=== PATIENT | male | born 1940 | race Caucasian/White ===

== ENCOUNTER 2018-04-07 10:42 | Emergency (ER) | payer OTHER ==
--- NOTE | 2018-04-07 12:11 | RAD REPORT ---
EXAM DESCRIPTION: CT - Head Brain Wo Cont - 04/07/2018 12:04 pm CLINICAL HISTORY: DIZZINESS Drowsiness COMPARISON: No comparisons TECHNIQUE: All CT scans are performed using dose optimization technique as appropriate and may inclu de automated exposure control or mA/KV adjustment according to patient size. FINDINGS: No intracranial hemorrhage, hydrocephalus or extra-axial fluid collection.Mild generalized brain atrophy is present with mild periventricular and deep white matter chronic microvascular ische ta changes.No areas of brain edema or evidence of midline shift. The paranasal sinuses and mastoids are clear. The calvarium is intact. IMPRESSION: No acute intracranial abnormality.
[2018-04-07] MEDS ORDERED: AMLODIPINE 5 MG TAB ONE (12:28)
[2018-04-07 12:42] LABS: Absolute Lymphocytes (CBC) 0.6 K/uL (0.7-4.9); Absolute Monocytes 0.4 K/uL (0.1-1.3); Basophils % 1.3 % (0-1.3); Eosinophils % 0.9 % (0-4.4); Hematocrit 46.4 % (39.6-49.0); Lymphocytes % 19.7 % (15.3-44.8); MCH 32.8 pg (27.0-35.0); MCV 98.4 fL (80-100); MPV 8.3 fL (7.6-11.3); Monocytes % 12.8 % (3.3-12.3); RBC Red Blood Cell Count 4.71 M/uL (4.33-5.43)
[2018-04-07 12:43] LABS: Protime INR 1.03
--- NOTE | 2018-04-07 12:58 | EKG ---
Test Date: 2018-04-07 Test Time: 12:38:07 Turning Lathe Tender: DONNA MEASUREMENT RESULTS: Intervals: Rate: 66 TN: 142 QRSD: 124 QT: 426 QTc: 446 [place]: P: 62 TN: 142 QRS: 22 T: 42 INTERPRETIVE STATEMENTS: Normal sinus rhythm Right bundle branch block Abnormal ECG Compared to ECG 02/01/2015 22:04:24 Right bundle-branch block now present Incomplete right bundle-branch block no longer present Electronically Signed On 04-07-18 12:57:37 CDT by Erik Marques
--- NOTE | 2018-04-07 13:08 | RAD REPORT ---
EXAM DESCRIPTION: RAD - Chest Single View - 04/07/2018 1:02 pm CLINICAL HISTORY: CHEST PAIN Chest pain. COMPARISON: CHEST SINGLE VIEW dated 02/01/2015 FINDINGS: Portable technique limits examination quality. The lungs are emphysematous but grossly clear. The heart is normal in size. No displaced fractures. IMPRESSION: COPD.
[2018-04-07 13:13] LABS: ALT/SGPT 16 U/L (12-78); AST/SGOT 30 U/L (15-37); Albumin 3.8 g/dL (3.4-5.0); Alkaline Phosphatase 80 U/L (45-117); BUN Blood Urea Nitrogen 10 mg/dL (7-18); Bicarbonate 30 mmol/L (21-32); Bilirubin Direct 0.3 mg/dL (0-0.2); Bilirubin Total 1.1 mg/dL (0.2-1.0); Glucose Level 95 mg/dL (74-106); Magnesium 2.5 mg/dL (1.8-2.4); NT PRO-BNP 411 pg/mL (<450); Protein, Total 7.6 g/dL (6.4-8.2); Sodium Level 137 mmol/L (136-145); Troponin (Emerg Dept Use Only) < 0.02 ng/mL (0.0-0.045)
[2018-04-07] MEDS ORDERED: CARVEDILOL 6.25 MG TAB ONE (13:44)
--- NOTE | 2018-04-07 15:06 | EDPHYS ---
Physician Documentation [facility] Name: Rufino Sanders Age: 77 yrs Sex: Male : 1940 Arrival Date: 04/07/2018 Time: 10:44 Bed 18 Private MD: ED Physician Esperanza Fountain HPI: 04/07 15:06 This 77 yrs old Male presents to ER via Ambulatory with complaints of High ma2 Blood Pressure, Dizziness. 12:33 The patient has elevated blood pressure and discovered this at clinic, went there for ma2 left shoulder pain that is on/off for the last 2 weeks, last episode 2 days ago over, worse with twisting lasting for few seconds n ochest pain . Associated signs and symptoms: Pertinent negatives: chest pain, dizziness, dyspnea, headache, lightheadedness, nausea, visual changes, vomiting, weakness. The patient has not experienced similar symptoms in the past. 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 - Social history:: Patient/guardian denies using alcohol, street drugs, The patient lives with family, Smoking status: Patient/guardian denies using tobacco. - Ebola Screening: : Patient negative for fever greater than or equal to 101.5 degrees Fahrenheit, and additional compatible Ebola Virus Disease symptoms. - Family history:: not pertinent. ROS: 12:33 Constitutional: Negative for fever, chills, and weight loss, Cardiovascular: Negative ma2 for chest pain, palpitations, and edema, Respiratory: Negative for shortness of breath, cough, wheezing, and pleuritic chest pain, Abdomen/GI: Negative for abdominal pain, nausea, diarrhea, and constipation, Back: Negative for injury and pain, Skin: Negative for injury, rash, and discoloration, Neuro: Negative for headache, weakness, numbness, tingling, and seizure. 12:33 Back: Positive for left scapular pain , Negative for injury or acute deformity, pain at rest, radiated pain. Exam: 12:33 Constitutional: This is a well developed, well nourished patient who is awake, alert, ma2 and in no acute distress. Eyes: Pupils equal round and reactive to light, extra-ocular motions intact. Lids and lashes normal. Conjunctiva and sclera are non-icteric and not injected. Cornea within normal limits. Periorbital areas with no swelling, redness, or edema. Chest/axilla: Normal chest wall appearance and motion. Nontender with no deformity. No lesions are appreciated. Cardiovascular: Regular rate and rhythm with a normal S1 and S2. No gallops, murmurs, or rubs. Normal PMI, no JVD. No pulse deficits. Respiratory: Lungs have equal breath sounds bilaterally, clear to auscultation and percussion. No rales, rhonchi or wheezes noted. No increased work of breathing, no retractions or nasal flaring. Abdomen/GI: Soft, non-tender, with normal bowel sounds. No distension or tympany. No guarding or rebound. No evidence of tenderness throughout. 12:33 Back: tender left scapula . Vital Signs: 11:12 BP 185 / 99; Pulse 60; Resp 18; Temp 97.6(O); Pulse Ox 98% on R/A; Weight 89.81 kg; aj1 Height 6 ft. 5 in. (195.58 cm); Pain 0/10; 12:18 BP 180 / 136; Pulse 80; Resp 18; Pulse Ox 98% on R/A; rb1 13:18 BP 205 / 121; Pulse 84; Resp 20; Pulse Ox 100% ; mh5 14:17 BP 170 / 94; Pulse 77; Resp 17; Pulse Ox 98% on R/A; rb1 15:17 BP 158 / 99; Pulse 59; Resp 16; Pulse Ox 95% on R/A; rb1 11:12 Body Mass Index 23.48 (89.81 kg, 195.58 cm) aj1 MDM: 11:29 Patient medically screened. ma2 12:33 Differential diagnosis: hypertensive crisis, Malignant HTN, intracerebral hemorrhage, ma2 MSK pain, essential HTN. 15:05 Data reviewed: vital signs, nurses notes, [facility] records. Counseling: I had a ma2 detailed discussion with the patient and/or guardian regarding: the historical points, exam findings, and any diagnostic results supporting the discharge/admit diagnosis, the presence of at least one elevated blood pressure reading (>120/80) during this emergency department visit, the need for outpatient follow up. Response to treatment: the patient's symptoms have markedly improved after treatment. 04/07 11:48 Order name: Basic Metabolic Panel; Complete Time: 13:27 ma2 04/07 11:48 Order name: CBC with Diff; Complete Time: 13:27 ma2 04/07 11:48 Order name: LFT's; Complete Time: 13:27 ma2 04/07 11:48 Order name: Magnesium; Complete Time: 13:27 ma2 04/07 11:48 Order name: NT PRO-BNP; Complete Time: 13:27 ma2 04/07 11:48 Order name: PT-INR; Complete Time: 13:27 ma2 04/07 11:48 Order name: Troponin (emerg Dept Use Only); Complete Time: 13:27 ma2 04/07 11:48 Order name: XRAY Chest (1 view); Complete Time: 13:27 ma2 04/07 11:48 Order name: EKG; Complete Time: 11:49 ma2 04/07 11:48 Order name: Cardiac monitoring; Complete Time: 12:34 ma2 04/07 11:48 Order name: CT Head Brain wo Cont; Complete Time: 13:27 ma2 04/07 11:48 Order name: EKG - Nurse/Tech; Complete Time: 12:37 ma2 04/07 11:48 Order name: IV Saline Lock; Complete Time: 12:34 ma2 04/07 11:48 Order name: Labs collected and sent; Complete Time: 12:34 ma2 04/07 11:48 Order name: O2 Per Protocol; Complete Time: 12:34 ma2 04/07 11:48 Order name: O2 Sat Monitoring; Complete Time: 12:34 ma2 Administered Medications: 12:10 Drug: Norvasc 5 mg Route: PO; rb1 15:45 Follow up: Response: No adverse reaction; Blood pressure is lowered ss 13:32 CANCELLED (alternative rx): Hydrochlorothiazide 12.5 mg PO once ma2 13:40 Drug: carvedilol 12.5 mg Route: PO; rb1 14:30 Follow up: Response: No adverse reaction; Blood pressure is lowered; 170/94 rb1 15:44 Follow up: Response: No adverse reaction; Blood pressure is lowered ss Disposition: 04/07/18 15:06 Discharged to Home. Impression: Essential (primary) hypertension. - Condition is Stable. - Discharge Instructions: Hypertension. - Prescriptions for Carvedilol 12.5 mg Oral Tablet - take 1 tablet by ORAL route 2 times per day with food; 60 tablet. - Medication Reconciliation Form, Thank You Letter, Antibiotic Education, Prescription Opioid Use form. - Follow up: Private Physician; When: Tomorrow; Reason: Continuance of care. - Problem is new. - Symptoms are unchanged. Signatures: Dispatcher [employer] EDOK Sada San RN RN aj1 Sadia Cross RN RN ss Savita Clarke RN RN rb1 Esperanza Fountain MD MD ma2 Corrections: (The following items were deleted from the chart) 13:32 13:29 Hydrochlorothiazide 12.5 mg PO once ordered. ma2 ma2 15:46 15:06 04/07/2018 15:06 Discharged to Home. Impression: Essential (primary) ss hypertension. Condition is Stable. Forms are Medication Reconciliation Form, Thank You Letter, Antibiotic Education, Prescription Opioid Use. Follow up: Private Physician; When: Tomorrow; Reason: Continuance of care. Problem is new. Symptoms are unchanged. ma2
--- NOTE | 2018-04-07 15:06 | ER ---
Nurse's Notes [facility] Name: Rufino Sanders Age: 77 yrs Sex: Male : 1940 Arrival Date: 04/07/2018 Time: 10:44 Bed 18 Private MD: Diagnosis: Essential (primary) hypertension Presentation: 04/07 11:10 Presenting complaint: Patient states: He got dizzy when he stood up at Urgent Care, and aj1 his SBP was 188. Patient reports that he has had occasional dizziness for the past week, and pain on his left upper back. He had gone to Urgent Care to get an X-Ray. Transition of care: patient was not received from another setting of care. Onset of symptoms was April 07, 2018. Risk Assessment: Do you want to hurt yourself or someone else? Patient reports no desire to harm self or others. Initial Sepsis Screen: Does the patient meet any 2 criteria? No. Patient's initial sepsis screen is negative. Does the patient have a suspected source of infection? No. Patient's initial sepsis screen is negative. Care prior to arrival: None. 11:10 Method Of Arrival: Ambulatory aj1 11:10 Acuity: FABIEN 3 aj1 Triage Assessment: 11:12 General: Appears in no apparent distress. comfortable, Behavior is calm, cooperative, aj1 appropriate for age. Pain: Denies pain. Complains of pain in left scapular area Pain currently is 0 out of 10 on a pain scale. at worst was 5 out of 10 on a pain scale. Neuro: Level of Consciousness is awake, alert, obeys commands. Cardiovascular: Patient's skin is warm and dry. Respiratory: Airway is patent Respiratory effort is even, unlabored, Respiratory pattern is regular, symmetrical. 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 - Social history:: Patient/guardian denies using alcohol, street drugs, The patient lives with family, Smoking status: Patient/guardian denies using tobacco. - Ebola Screening: : Patient negative for fever greater than or equal to 101.5 degrees Fahrenheit, and additional compatible Ebola Virus Disease symptoms. - Family history:: not pertinent. Screenin:26 Abuse screen: Denies threats or abuse. Nutritional screening: No deficits noted. rb1 Tuberculosis screening: No symptoms or risk factors identified. Fall Risk None identified. Assessment: 11:26 General: Appears in no apparent distress. comfortable, Behavior is calm, cooperative, rb1 Denies fever. Pain: Denies pain. Neuro: Level of Consciousness is awake, alert, obeys commands, Oriented to person, place, time, situation. Neuro: Reports dizziness, weakness. Neuro: Carpenter Supervisor are equal bilaterally Moves all extremities. Gait is steady, Speech is normal, Facial symmetry appears normal, Pupils are PERRLA. Cardiovascular: Capillary refill < 3 seconds is brisk in bilateral fingers. Respiratory: Airway is patent Respiratory effort is even, unlabored, Respiratory pattern is regular, symmetrical. Respiratory: Denies shortness of breath. GI: No deficits noted. : No deficits noted. Derm: Skin is pink, warm \T\ dry. Musculoskeletal: Range of motion: intact in all extremities. 12:23 Reassessment: Patient appears in no apparent distress at this time. No changes from rb1 previously documented assessment. 13:20 Reassessment: Patient appears in no apparent distress at this time. Patient and/or rb1 family updated on plan of care and expected duration. Pain level reassessed. Patient is alert, oriented x 3, equal unlabored respirations, skin warm/dry/pink. Patient denies pain at this time. 14:20 Reassessment: Patient appears in no apparent distress at this time. No changes from rb1 previously documented assessment. 15:18 Reassessment: Patient appears in no apparent distress at this time. Patient and/or rb1 family updated on plan of care and expected duration. Pain level reassessed. Patient is alert, oriented x 3, equal unlabored respirations, skin warm/dry/pink. Patient denies pain at this time. Vital Signs: 11:12 BP 185 / 99; Pulse 60; Resp 18; Temp 97.6(O); Pulse Ox 98% on R/A; Weight 89.81 kg; aj1 Height 6 ft. 5 in. (195.58 cm); Pain 0/10; 12:18 BP 180 / 136; Pulse 80; Resp 18; Pulse Ox 98% on R/A; rb1 13:18 BP 205 / 121; Pulse 84; Resp 20; Pulse Ox 100% ; mh5 14:17 BP 170 / 94; Pulse 77; Resp 17; Pulse Ox 98% on R/A; rb1 15:17 BP 158 / 99; Pulse 59; Resp 16; Pulse Ox 95% on R/A; rb1 11:12 Body Mass Index 23.48 (89.81 kg, 195.58 cm) aj1 ED Course: 10:44 Patient arrived in ED. rg4 11:11 Triage completed. aj1 11:12 Arm band placed on Patient placed in waiting room, Patient notified of wait time. aj1 11:25 Savita Clarke, RN is Primary Nurse. rb1 11:26 Patient has correct armband on for positive identification. Placed in gown. Bed in low rb1 position. Call light in reach. Side rails up X 1. cafeteria monitor on. Pulse ox on. NIBP on. 11:29 Esperanza Fountain MD is Attending Physician. ma2 12:[address] via wheelchair. jj2 12:03 CT completed. Patient tolerated procedure well. Patient moved back from CT. jj2 12:04 CT Head Brain wo Cont In Process Unspecified. EDMS 12:41 EKG done, by wellfield technician. reviewed by Esperanza Fountain MD. at1 13:02 XRAY Chest (1 view) In Process Unspecified. EDMS 13:04 X-ray completed. Portable x-ray completed in exam room. jr1 15:44 No provider procedures requiring assistance completed. IV discontinued, intact, ss bleeding controlled, No redness/swelling at site. Pressure dressing applied. Administered Medications: 12:10 Drug: Norvasc 5 mg Route: PO; rb1 15:45 Follow up: Response: No adverse reaction; Blood pressure is lowered ss 13:32 CANCELLED (alternative rx): Hydrochlorothiazide 12.5 mg PO once ma2 13:40 Drug: carvedilol 12.5 mg Route: PO; rb1 14:30 Follow up: Response: No adverse reaction; Blood pressure is lowered; 170/94 rb1 15:44 Follow up: Response: No adverse reaction; Blood pressure is lowered ss Intake: Outcome: 15:06 Discharge ordered by . ma2 15:44 Discharged to home ambulatory. ss 15:44 Condition: good 15:44 Discharge instructions given to patient, Instructed on discharge instructions, follow up and referral plans. medication usage, Demonstrated understanding of instructions, follow-up care, medications, Prescriptions given X 1. 15:46 Patient left the ED. Signatures: Dispatcher [employer] EDSada Watson, HOLLIS RN aj1 Ronnie Burger jj2 Candace He jr1 Saida Cross RN RN ss Antoinette Ross, labor relations manager EKG Tat1 Savita Clarke RN RN Bhargavi Potts4 Navya Grullon 5 Esperanza Fountain MD MD ma2
== END 2018-04-07 15:46 | disposition home or self-care (01) ==
LOC: ER 10:42
DX: I10 Essential (primary) hypertension (principal)
CPT/HCPCS: 36415; 70450; 71045; 80048; 80076; 83735; 83880; 84484; 85025; 85610; 93005; 99285

== ENCOUNTER 2018-05-11 08:48 | Emergency (ER) | payer OTHER ==
[2018-05-11] MEDS ORDERED: ONDANSETRON 4 MG/2 ML VIAL ONE (09:38)
[2018-05-11] MEDS ORDERED: cloNIDine HCl 0.1 MG TAB ONE (09:47)
[2018-05-11 09:53] LABS: Potassium 4.5 mmol/L (3.5-5.1)
[2018-05-11 09:57] LABS: Absolute Lymphocytes (CBC) 0.4 K/uL (0.7-4.9); Absolute Monocytes 0.4 K/uL (0.1-1.3); Absolute Neutrophil 3.3 K/uL (1.8-8.0); Basophils % 0.5 % (0-1.3); Eosinophils % 0.3 % (0-4.4); Hematocrit 45.7 % (39.6-49.0); Lymphocytes % 10.9 % (15.3-44.8); MCH 33.1 pg (27.0-35.0); MCV 96.2 fL (80-100); MPV 8.4 fL (7.6-11.3); Monocytes % 8.6 % (3.3-12.3); RBC Red Blood Cell Count 4.75 M/uL (4.33-5.43)
[2018-05-11 10:03] LABS: ALT/SGPT 17 U/L (12-78); AST/SGOT 47 U/L (15-37); Albumin 3.9 g/dL (3.4-5.0); Alkaline Phosphatase 82 U/L (45-117); Bilirubin Direct 0.2 mg/dL (0-0.2); Bilirubin Total 1.7 mg/dL (0.2-1.0); Lipase 144 U/L (73-393); Protein, Total 7.8 g/dL (6.4-8.2); Troponin (Emerg Dept Use Only) < 0.02 ng/mL (0.0-0.045)
--- NOTE | 2018-05-11 10:09 | RAD REPORT ---
EXAM DESCRIPTION: CT - Head Brain Wo Cont - 05/11/2018 9:57 am CLINICAL HISTORY: high bp Headache, hypertension COMPARISON: Head Brain Wo Cont dated 04/07/2018 TECHNIQUE: All CT scans are performed using dose optimization technique as appropriate and may inclu de automated exposure control or mA/KV adjustment according to patient size. FINDINGS: Mild motion degraded study is submitted. No intracranial hemorrhage, hydrocephalus or extra-axial fluid collection.Mild generalized brain atro phy is present with moderate periventricular and deep white matter chronic microvascular ischemic yariel nges.No areas of brain edema or evidence of midline shift. The paranasal sinuses and mastoids are clear. The calvarium is intact. IMPRESSION: No acute intracranial abnormality.
[2018-05-11] MEDS ORDERED: NA CHLORIDE 0.9% 500 ML ONE (10:39)
--- NOTE | 2018-05-11 11:54 | EDPHYS ---
Physician Documentation [facility] Name: Rufino Sanders Age: 77 yrs Sex: Male : 1940 Arrival Date: 05/11/2018 Time: 08:57 Bed 20 Private MD: ED Physician Bridger Schaffer HPI: 05/11 09:22 This 77 yrs old Male presents to ER via EMS with complaints of High Blood rn Pressure. 09:22 The patient has elevated blood pressure and discovered this at home. Onset: The rn symptoms/episode began/occurred at an unknown time. Modifying factors:. Severity of symptoms: At its worst the blood pressure was moderate, in the emergency department the blood pressure is improved. The patient has experienced similar episodes in the past. REports seen here about 1month ago for high BP, given valsartan, states worked, f/u with pcp who prescribed valsartan/HCTZ 4 days ago, since then doesn't feel well, tired, nausea, and BP staying high, no headache/focal neurological problems/chest pain/sob. Reports intermittent cramps but otherwise feels ok. Called 911 when today was 180/112, did not have any symptoms at that time either. BP slightly improved now and feels better. . Historical: - Allergies: 09:04 No Known Allergies; jl7 - Home Meds: 09:04 valsartan-hydrochlorothiazide oral [Active]; jl7 - PMHx: 09:04 Rheumatoid Arthritis; jl7 - PSHx: 09:04 None; jl7 - Immunization history:: Adult Immunizations not up to date. - Social history:: Smoking status: Patient/guardian denies using tobacco. - Ebola Screening: : No symptoms or risks identified at this time. - Family history:: not pertinent. - Hospitalizations: : No recent hospitalization is reported. ROS: 09:22 Constitutional: Negative for fever, chills, and weight loss, Eyes: Negative for injury, rn pain, redness, and discharge, Neck: Negative for injury, pain, and swelling, Cardiovascular: Negative for chest pain, palpitations, and edema, Respiratory: Negative for shortness of breath, cough, wheezing, and pleuritic chest pain, Abdomen/GI: Negative for abdominal pain, nausea, vomiting, diarrhea, and constipation, MS/Extremity: Negative for injury and deformity, Skin: Negative for injury, rash, and discoloration, Neuro: Negative for headache, weakness, numbness, tingling, and seizure. Exam: 09:22 Constitutional: This is a well developed, well nourished patient who is awake, alert, rn and in no acute distress. Head/Face: Normocephalic, atraumatic. Eyes: Pupils equal round and reactive to light, extra-ocular motions intact. Lids and lashes normal. Conjunctiva and sclera are non-icteric and not injected. Cornea within normal limits. Periorbital areas with no swelling, redness, or edema. Cardiovascular: Regular rate and rhythm with a normal S1 and S2. No pulse deficits. Respiratory: Lungs have equal breath sounds bilaterally, clear to auscultation. No increased work of breathing, no retractions or nasal flaring. Abdomen/GI: soft, non-tender MS/ Extremity: Pulses equal, no cyanosis. Neurovascular intact. Full, normal range of motion. Equal circumference. Neuro: Awake and alert, GCS 15, oriented to person, place, time, and situation. Cranial nerves II-XII grossly intact. Motor strength 5/5 in all extremities. Sensory grossly intact. Vital Signs: 09:00 BP 182 / 95; Pulse 82; Resp 14 S; Temp 98.2(O); Pulse Ox 97% on R/A; Weight 88.45 kg jl7 (R); Height 6 ft. 4 in. (193.04 cm) (R); Pain 0/10; 09:35 BP 181 / 80; Pulse 68; Resp 16 S; Pulse Ox 98% on R/A; jl7 10:00 BP 176 / 90; Pulse 63; Resp 14 S; Pulse Ox 99% on R/A; jl7 10:15 BP 172 / 89; Pulse 63; Resp 16 S; Pulse Ox 98% on R/A; jl7 10:40 BP 170 / 84; Pulse 61; Resp 15 S; Pulse Ox 98% on R/A; Pain 0/10; jl7 11:30 BP 172 / 85; Pulse 59; Resp 16 S; Pulse Ox 99% on R/A; jl7 12:12 BP 142 / 92; Pulse 60; Resp 16 S; Pulse Ox 99% on R/A; jl7 09:00 Body Mass Index 23.74 (88.45 kg, 193.04 cm) jl7 MDM: 09:02 Patient medically screened. rn 11:50 Differential diagnosis: Malignant HTN, medication reaction. Data reviewed: vital signs, rn nurses notes, lab test result(s), EKG, radiologic studies, CT scan, and as a result, I will discharge patient. Counseling: I had a detailed discussion with the patient and/or guardian regarding: the historical points, exam findings, and any diagnostic results supporting the discharge/admit diagnosis, lab results, radiology results, the need for outpatient follow up, to return to the emergency department if symptoms worsen or persist or if there are any questions or concerns that arise at home. Special discussion: I discussed with the patient/guardian in detail that at this point there is no indication for admission to the hospital. It is understood, however, that if the symptoms persist or worsen the patient needs to return immediately for re-evaluation. Based on the history and exam findings, there is no indication for further emergent testing or inpatient evaluation. I discussed with the patient/guardian the need to see the primary care provider for further evaluation of the symptoms. ED course: Pt with hyponatremia and hypochloremia, likely related to HCTZ addition, as all symptoms started when started this new medication. Given NS here, will stop current medication and switch back to just losartan with close pcp f/u. Patient happy with change and thinks his symptoms are due to the medication as well. . 05/11 09:13 Order name: CBC with Diff rn 05/11 09:13 Order name: Basic Metabolic Panel rn 05/11 09:29 Order name: Troponin (emerg Dept Use Only) rn 05/11 09:30 Order name: Lipase rn 05/11 09:30 Order name: LFT's rn 05/11 11:06 Order name: Basic Metabolic Panel EDMN 05/11 09:29 Order name: CT Head Brain wo Cont rn 05/11 10:47 Order name: CT; Complete Time: 11:57 EDMN 05/11 11:06 Order name: CBC with Automated Diff EDMN 05/11 11:09 Order name: Lipase EDMN 05/11 11:09 Order name: Liver (Hepatic) Function EDMN 05/11 11:09 Order name: Troponin (Emerg Dept Use Only) EDMN 05/11 09:13 Order name: IV Start; Complete Time: 09:38 rn 05/11 09:13 Order name: EKG; Complete Time: 10:39 rn 05/11 09:13 Order name: EKG - Nurse/Tech; Complete Time: :38 rn 05/11 11:12 Order name: EKG Electrocardiogram EDMS Administered Medications: 09:35 Drug: Zofran 4 mg Route: IVP; Site: left wrist; jl7 10:00 Follow up: Response: No adverse reaction; Nausea is decreased jl7 09:45 Drug: cloNIDine 0.1 mg Route: PO; jl7 10:37 Follow up: Response: Blood pressure is lowered jl7 10:37 Drug: NS 0.9% 500 ml Route: IV; Rate: bolus; Site: left wrist; jl7 11:30 Follow up: IV Status: Completed infusion jl7 Disposition: 05/11/18 11:53 Discharged to Home. Impression: Hypo-osmolality and hyponatremia, Adverse effect of medication. - Condition is Stable. - Discharge Instructions: Hypertension, Hyponatremia, Managing Your Hypertension. - Prescriptions for Carvedilol 12.5 mg Oral Tablet - take 1 tablet by ORAL route 2 times per day with food; 60 tablet. - Medication Reconciliation Form, Thank You Letter, Antibiotic Education, Prescription Opioid Use form. - Follow up: Private Physician; When: As needed; Reason: Recheck today's complaints, Re-evaluation by your physician. - Problem is new. - Symptoms have improved. Signatures: Dispatcher [employer] EDMS Bridger Schaffer MD MD rn Leal, Jahala, RN RN jl7 Corrections: (The following items were deleted from the chart) 12:12 11:53 05/11/2018 11:53 Discharged to Home. Impression: Hypo-osmolality and jl7 hyponatremia; Adverse effect of medication. Condition is Stable. Forms are Medication Reconciliation Form, Thank You Letter, Antibiotic Education, Prescription Opioid Use. Follow up: Private Physician; When: As needed; Reason: Recheck today's complaints, Re-evaluation by your physician. Problem is new. Symptoms have improved. rn
--- NOTE | 2018-05-11 11:54 | ER ---
Nurse's Notes [facility] Name: Rufino Sanders Age: 77 yrs Sex: Male : 1940 Arrival Date: 05/11/2018 Time: 08:57 Bed 20 Private MD: Diagnosis: Hypo-osmolality and hyponatremia;Adverse effect of medication Presentation: 05/11 08:58 Presenting complaint: EMS states: He was here 2 weeks ago and was diagnosed with HTN jl7 and prescribed Valsartan. He called us because his BP is still high. BP was 188/112, HR 80s. Transition of care: patient was not received from another setting of care. Onset of symptoms was April 29, 2018. Risk Assessment: Do you want to hurt yourself or someone else? Patient reports no desire to harm self or others. Initial Sepsis Screen: Does the patient meet any 2 criteria? No. Patient's initial sepsis screen is negative. Does the patient have a suspected source of infection? No. Patient's initial sepsis screen is negative. Care prior to arrival: IV initiated. 20 GA, in the right wrist. 08:58 Method Of Arrival: EMS: [facility] 7 08:58 Acuity: FABIEN 3 jl7 Triage Assessment: 09:04 General: Appears in no apparent distress. uncomfortable, Behavior is calm, cooperative, jl7 appropriate for age. Pain: Denies pain. EENT: No deficits noted. Neuro: Level of Consciousness is awake, alert, obeys commands, Oriented to person, place, time, situation. Cardiovascular: Heart tones S1 S2 present Patient's skin is warm and dry. Respiratory: Airway is patent Respiratory effort is even, unlabored, Respiratory pattern is regular, symmetrical, Breath sounds are clear bilaterally. GI: Reports nausea, Patient currently denies diarrhea, vomiting. : No signs and/or symptoms were reported regarding the genitourinary system. Derm: No signs and/or symptoms reported regarding the dermatologic system. Musculoskeletal: No signs and/or symptoms reported regarding the musculoskeletal system. Historical: - Allergies: 09:04 No Known Allergies; jl7 - Home Meds: 09:04 valsartan-hydrochlorothiazide oral [Active]; jl7 - PMHx: 09:04 Rheumatoid Arthritis; jl7 - PSHx: 09:04 None; jl7 - Immunization history:: Adult Immunizations not up to date. - Social history:: Smoking status: Patient/guardian denies using tobacco. - Ebola Screening: : No symptoms or risks identified at this time. - Family history:: not pertinent. - Hospitalizations: : No recent hospitalization is reported. Screenin:06 Abuse screen: Denies threats or abuse. Denies injuries from another. Nutritional jl7 screening: No deficits noted. Tuberculosis screening: No symptoms or risk factors identified. Fall Risk IV access (20 points). Total Moore Fall Scale indicates No Risk (0-24 pts). Assessment: 09:06 General: See triage assessment. jl7 10:00 Reassessment: No changes from previously documented assessment. Patient and/or family jl7 updated on plan of care and expected duration. Pain level reassessed. Patient is alert, oriented x 3, equal unlabored respirations, skin warm/dry/pink. 11:00 Reassessment: Patient appears in no apparent distress at this time. Patient and/or jl7 family updated on plan of care and expected duration. Pain level reassessed. Patient is alert, oriented x 3, equal unlabored respirations, skin warm/dry/pink. Patient states feeling better. Vital Signs: 09:00 BP 182 / 95; Pulse 82; Resp 14 S; Temp 98.2(O); Pulse Ox 97% on R/A; Weight 88.45 kg jl7 (R); Height 6 ft. 4 in. (193.04 cm) (R); Pain 0/10; 09:35 BP 181 / 80; Pulse 68; Resp 16 S; Pulse Ox 98% on R/A; jl7 10:00 BP 176 / 90; Pulse 63; Resp 14 S; Pulse Ox 99% on R/A; jl7 10:15 BP 172 / 89; Pulse 63; Resp 16 S; Pulse Ox 98% on R/A; jl7 10:40 BP 170 / 84; Pulse 61; Resp 15 S; Pulse Ox 98% on R/A; Pain 0/10; jl7 11:30 BP 172 / 85; Pulse 59; Resp 16 S; Pulse Ox 99% on R/A; jl7 12:12 BP 142 / 92; Pulse 60; Resp 16 S; Pulse Ox 99% on R/A; jl7 09:00 Body Mass Index 23.74 (88.45 kg, 193.04 cm) jl7 ED Course: 08:57 Patient arrived in ED. jl7 09:00 Triage completed. jl7 09:00 Arm band placed on right wrist. jl7 09:02 Bridger Schaffer MD is Attending Physician. rn 09:02 Sary Amezcua, HOLLIS is Primary Nurse. jl7 09:02 Initial lab(s) drawn, by me, held in ED. Maintain EMS IV. Dressing intact. Good blood mh5 return noted. Site clean \T\ dry. Gauge \T\ site: 20 left forearm. 09:04 Patient has correct armband on for positive identification. Placed in gown. Bed in low mh5 position. Call light in reach. Side rails up X2. Warm blanket given. awake overnight monitor on. Pulse ox on. NIBP on. 09:39 EKG done, by computed tomography technician. reviewed by Bridger Schaffer MD. 3 09:55 CT completed. Patient tolerated procedure well. Patient moved to [place] via stretcher. jg6 Patient moved back from [place]. 12:10 No provider procedures requiring assistance completed. IV discontinued, intact, jl7 bleeding controlled, No redness/swelling at site. Pressure dressing applied. Administered Medications: 09:35 Drug: Zofran 4 mg Route: IVP; Site: left wrist; jl7 10:00 Follow up: Response: No adverse reaction; Nausea is decreased jl7 09:45 Drug: cloNIDine 0.1 mg Route: PO; jl7 10:37 Follow up: Response: Blood pressure is lowered jl7 10:37 Drug: NS 0.9% 500 ml Route: IV; Rate: bolus; Site: left wrist; jl7 11:30 Follow up: IV Status: Completed infusion jl7 Outcome: 11:53 Discharge ordered by . rn 12:10 Discharged to home ambulatory. jl7 12:10 Condition: stable 12:10 Discharge instructions given to patient, Instructed on discharge instructions, follow up and referral plans. medication usage, Demonstrated understanding of instructions, follow-up care, medications, Prescriptions given X 1. 12:12 Patient left the ED. jl7 Signatures: Bridger Schaffer MD MD rn Martinez, [facility] Sary Amezcua RN RN 7 Ivelisse Luo 3 Sabrina Rascon jg6
[2018-05-11 13:30] VITALS: TEMP 98.2
[2018-05-11 13:36] VITALS: O2SAT 99
[2018-05-11 13:37] VITALS: BP 142/92
--- NOTE | 2018-05-11 15:19 | EKG ---
Test Date: 2018-05-11 Test Time: 14:50:34 Metal Reclamation Kettle Tender: DONNA MEASUREMENT RESULTS: Intervals: Rate: 65 AR: 164 QRSD: 128 QT: 462 QTc: 480 Reading: P: 70 AR: 164 QRS: 50 T: 67 INTERPRETIVE STATEMENTS: Normal sinus rhythm Right bundle branch block Abnormal ECG Compared to ECG 05/11/2018 10:36:32 No significant changes Electronically Signed On 05-11-18 15:18:31 SUPERVISOR [employer] FINISHING by Delon Shook
--- NOTE | 2018-05-11 15:20 | EKG ---
Test Date: 2018-05-11 Test Time: 10:36:32 Senior National Account Manager: ANJALI MEASUREMENT RESULTS: Intervals: Rate: 70 SC: 164 QRSD: 128 QT: 428 QTc: 462 [place]: P: 83 SC: 164 QRS: 42 T: 50 INTERPRETIVE STATEMENTS: Normal sinus rhythm Right bundle branch block Abnormal ECG Compared to ECG 04/07/2018 12:38:07 No significant changes Electronically Signed On 05-11-18 15:19:26 STAFF AUDITOR by Delon Shook
== END 2018-05-11 12:12 | disposition home or self-care (01) ==
LOC: ER 08:48
DX: E87.1 Hypo-osmolality and hyponatremia (principal); T50.905A Adverse effect of unspecified drugs, medicaments and biological substances, initial encounter; I10 Essential (primary) hypertension; I45.10 Unspecified right bundle-branch block; R94.31 Abnormal electrocardiogram [ECG] [EKG]; Z79.899 Other long term (current) drug therapy
CPT/HCPCS: 36415; 70450; 80048; 80076; 83690; 84484; 85025; 93005 ×2; 96361; 96374; 99285; J2405

== ENCOUNTER 2018-05-11 13:21 | Observation (INO) | payer OTHER ==
[2018-05-11] MEDS ORDERED: IPRATROPIUM BROM 0.5MG/2.5ML NEB PRN (14:23)
[2018-05-11] MEDS ORDERED: ALBUTEROL 2.5 MG/3 ML NEB SOL NEB PRN (14:23)
[2018-05-11] MEDS ORDERED: ACETAMINOPHEN 500 MG TAB PO PRN (14:23)
[2018-05-11] MEDS ORDERED: ONDANSETRON 4 MG/2 ML VIAL IV PRN (14:23)
--- NOTE | 2018-05-11 14:38 | ER ---
Nurse's Notes [facility] Name: Rufino Sanders Age: 77 yrs Sex: Male : 1940 Arrival Date: 05/11/2018 Time: 13:22 Bed 5 Private MD: Diagnosis: Hypo-osmolality and hyponatremia;Vomiting;Weakness Presentation: 05/11 13:28 Presenting complaint: Patient states: "I was just discharged from here just a little aa5 bit ago but I just feel so weak and dizzy". Pt actively vomiting in triage. Transition of care: patient was not received from another setting of care. Risk Assessment: Do you want to hurt yourself or someone else? Patient reports no desire to harm self or others. Initial Sepsis Screen: Does the patient meet any 2 criteria? No. Patient's initial sepsis screen is negative. Does the patient have a suspected source of infection? No. Patient's initial sepsis screen is negative. Care prior to arrival: None. 13:28 Method Of Arrival: Wheelchair aa 13:28 Acuity: FABIEN 3 aa5 13:38 Onset of symptoms was May 11, 2018. Triage Assessment: 13:37 General: Appears in no apparent distress. uncomfortable, Behavior is calm, cooperative, hj appropriate for age. Pain: Denies pain. EENT: No signs and/or symptoms were reported regarding the EENT system. Neuro: Level of Consciousness is awake, alert, obeys commands, Reports dizziness, weakness. Cardiovascular: Capillary refill < 3 seconds Patient's skin is warm and dry. Respiratory: Airway is patent Respiratory effort is even, unlabored, Respiratory pattern is regular, symmetrical. GI: Reports nausea, "i haven't eaten anything for the day". : No signs and/or symptoms were reported regarding the genitourinary system. Derm: No signs and/or symptoms reported regarding the dermatologic system. Musculoskeletal: No signs and/or symptoms reported regarding the musculoskeletal system. Historical: - Allergies: 13:30 No Known Allergies; aa5 - Home Meds: 13:39 valsartan-hydrochlorothiazide Oral [Active]; hj - PMHx: 13:29 Rheumatoid Arthritis; aa5 - PSHx: 13:29 None; aa5 - Immunization history:: Adult Immunizations up to date. - Ebola Screening: : No symptoms or risks identified at this time. - Social history:: Smoking status: Patient/guardian denies using tobacco, Patient/guardian denies using alcohol. - Family history:: not pertinent. - Hospitalizations: : No recent hospitalization is reported. Screenin:36 Abuse screen: Denies threats or abuse. Denies injuries from another. Nutritional hj screening: No deficits noted. Tuberculosis screening: No symptoms or risk factors identified. Fall Risk None identified. Assessment: 13:39 Reassessment: see triage fore assessment;. hj 14:00 Reassessment: Patient and/or family updated on plan of care and expected duration. Pain hj level reassessed. Patient is alert, oriented x 3, equal unlabored respirations, skin warm/dry/pink. hospitalist in room;. 15:41 Reassessment: Patient and/or family updated on plan of care and expected duration. Pain hj level reassessed. Patient is alert, oriented x 3, equal unlabored respirations, skin warm/dry/pink. awaiting room placement;. Vital Signs: 13:30 BP 156 / 94; Pulse 87; Resp 18 S; Temp 97.6(O); Pulse Ox 97% on R/A; Weight 88.45 kg aa5 (R); Height 6 ft. 4 in. (193.04 cm) (R); Pain 0/10; 13:36 BP 153 / 84; Pulse 64; Resp 18; Pulse Ox 97% on R/A; hj 15:42 BP 155 / 78; Pulse 67; Resp 18; Pulse Ox 98% on R/A; hj 16:11 BP 119 / 64; Pulse 55; Resp 18; Pulse Ox 100% on R/A; hj 13:30 Body Mass Index 23.74 (88.45 kg, 193.04 cm) aa5 ED Course: 13:22 Patient arrived in ED. mr 13:24 Bridger Schaffer MD is Attending Physician. rn 13:28 Arm band placed on. aa5 13:29 Triage completed. aa5 13:36 Eliot Brunson, HOLLIS is Primary Nurse. hj 13:38 Patient has correct armband on for positive identification. Placed in gown. Bed in low hj position. Call light in reach. Side rails up X 1. Adult w/ patient. 13:51 EKG done, by dyno technician. reviewed by Bridger Schaffer MD. sm3 14:37 Brian Quintana DO is Hospitalizing Provider. rn 15:32 Initial lab(s) drawn, by me, sent to lab. Inserted saline lock: 22 gauge in right hj antecubital area, using aseptic technique. Blood collected. 16:12 No provider procedures requiring assistance completed. Patient admitted, IV remains in hj place. intact. Administered Medications: No medications were administered Outcome: 14:37 Decision to Hospitalize by Provider. rn 16:12 Admitted to Med/surg accompanied by tech, via wheelchair, room 202, with chart, Report hj called to HOLLIS Lazar 16:12 Condition: stable 16:12 Instructed on the need for admit, Demonstrated understanding of instructions. 16:27 Patient left the ED. Signatures: Tommy Brina wilder Bridger Schaffer MD MD rn Calderon, Adela RN RN aa5 Eliot Brunson RN RN Ivelisse Luo sm3 Corrections: (The following items were deleted from the chart) 13:31 13:30 Pulse 87bpm; Resp 18bpm; Spontaneous; Pulse Ox 97% RA; Temp 97.6F Oral; 88.45 kg aa5 Reported; Height 6 ft. 4 in. Reported; BMI: 23.7; Pain 0/10; aa5
--- NOTE | 2018-05-11 14:38 | EDPHYS ---
Physician Documentation [facility] Name: Rufino Sanders Age: 77 yrs Sex: Male : 1940 Arrival Date: 05/11/2018 Time: 13:22 Bed 5 Private MD: ED Physician Bridger Schaffer HPI: 05/11 14:34 This 77 yrs old Male presents to ER via Wheelchair with complaints of rn Dizziness, Weakness. 14:34 The patient presents with dizziness, feeling faint. Onset: The symptoms/episode rn began/occurred yesterday. Severity of symptoms: At their worst the symptoms were moderate in the emergency department the symptoms are unchanged. The patient has not experienced similar symptoms in the past. The patient has been recently seen at the [facility] Emergency Department, just prior to arrival. I just saw this patient for medication reaction, was hyponatremic due to likely HCTZ use, given fluids and zofran, returns shortly after discharge because felt weak again and began to throw up, family concerned so brought him back.. Historical: - Allergies: 13:30 No Known Allergies; aa5 - Home Meds: 13:39 valsartan-hydrochlorothiazide Oral [Active]; hj - PMHx: 13:29 Rheumatoid Arthritis; aa5 - PSHx: 13:29 None; aa5 - Immunization history:: Adult Immunizations up to date. - Ebola Screening: : No symptoms or risks identified at this time. - Social history:: Smoking status: Patient/guardian denies using tobacco, Patient/guardian denies using alcohol. - Family history:: not pertinent. - Hospitalizations: : No recent hospitalization is reported. ROS: 14:34 Constitutional: Negative for fever, chills, and weight loss, Eyes: Negative for injury, rn pain, redness, and discharge, Neck: Negative for injury, pain, and swelling, Cardiovascular: Negative for chest pain, palpitations, and edema, Respiratory: Negative for shortness of breath, cough, wheezing, and pleuritic chest pain, Abdomen/GI: Negative for abdominal pain, diarrhea, and constipation, MS/Extremity: Negative for injury and deformity, Neuro: Negative for headache, numbness, tingling, and seizure. Exam: 14:34 Constitutional: This is a well developed, well nourished patient who is awake, alert, rn and in no acute distress. Head/Face: Normocephalic, atraumatic. Eyes: Pupils equal round and reactive to light, extra-ocular motions intact. Lids and lashes normal. Conjunctiva and sclera are non-icteric and not injected. Cornea within normal limits. Periorbital areas with no swelling, redness, or edema. ENT: MMM, no stridor Neck: Trachea midline, no thyromegaly or masses palpated, and no cervical lymphadenopathy. Supple, full range of motion without nuchal rigidity, or vertebral point tenderness. No Meningismus. Cardiovascular: Regular rate and rhythm with a normal S1 and S2. No pulse deficits. Respiratory: Lungs have equal breath sounds bilaterally, clear to auscultation. No increased work of breathing, no retractions or nasal flaring. Abdomen/GI: soft, non-tender MS/ Extremity: Pulses equal, no cyanosis. Neurovascular intact. Full, normal range of motion. Equal circumference. Neuro: Awake and alert, GCS 15, oriented to person, place, time, and situation. Cranial nerves II-XII grossly intact. Motor strength 5/5 in all extremities. Sensory grossly intact. Cerebellar exam normal. Vital Signs: 13:30 BP 156 / 94; Pulse 87; Resp 18 S; Temp 97.6(O); Pulse Ox 97% on R/A; Weight 88.45 kg aa5 (R); Height 6 ft. 4 in. (193.04 cm) (R); Pain 0/10; 13:36 BP 153 / 84; Pulse 64; Resp 18; Pulse Ox 97% on R/A; hj 15:42 BP 155 / 78; Pulse 67; Resp 18; Pulse Ox 98% on R/A; hj 16:11 BP 119 / 64; Pulse 55; Resp 18; Pulse Ox 100% on R/A; hj 13:30 Body Mass Index 23.74 (88.45 kg, 193.04 cm) aa5 MDM: 13:24 Patient medically screened. rn 14:34 Differential diagnosis: cardiac arrhythmia, generalized weakness, hyperventilation, rn hypovolemia, idiopathic dizziness, near-syncope, TIA. Data reviewed: vital signs, nurses notes, lab test result(s), EKG, radiologic studies, and as a result, I will admit patient. Counseling: I had a detailed discussion with the patient and/or guardian regarding: the historical points, exam findings, and any diagnostic results supporting the discharge/admit diagnosis, lab results, radiology results, the need for further work-up and treatment in the hospital. Admission orders: after a detailed discussion of the patient's condition and case, the admit orders are written by me. ED course: Pt returns, still feels weak, after improvement earlier, will observe overnight now for fluids, repeat sodium and hyponatremia. . 05/11 14:31 Order name: UR SODIUM [facility] 05/11 14:31 Order name: Osmolality, Urine [facility] 05/11 14:31 Order name: T4 Free [facility] 05/11 14:31 Order name: Thyroid Stimulating Hormone [facility] 05/11 14:31 Order name: Urinalysis [facility] 05/11 14:31 Order name: Urinalysis [facility] 05/11 14:31 Order name: Basic Metabolic Panel [facility] 05/11 14:31 Order name: Basic Metabolic Panel [facility] 05/11 14:31 Order name: CBC with Automated Diff [facility] 05/11 14:31 Order name: CBC with Automated Diff [facility] 05/11 14:31 Order name: Lipid Profile [facility] 05/11 14:31 Order name: Lipid Profile [facility] 05/11 14:31 Order name: Magnesium [facility] 05/11 14:31 Order name: Magnesium [facility] 05/11 14:31 Order name: Heart Healthy [facility] 05/11 14:31 Order name: NPO [facility] 05/11 14:31 Order name: Echo with Doppler [facility] 05/11 14:31 Order name: Basic Metabolic Panel [facility] 05/11 14:31 Order name: Patient Safety Orders [facility] 05/11 16:14 Order name: CBC with Automated Diff [facility] 05/11 16:23 Order name: Lipid Profile [facility] 05/11 16:23 Order name: Magnesium [facility] Administered Medications: No medications were administered Disposition: 05/11/18 14:37 Hospitalization ordered by Brian Quintana for Observation. Preliminary diagnosis are Hypo-osmolality and hyponatremia, Vomiting, Weakness. - Bed requested for Telemetry/MedSurg (observation). - Status is Observation. hj - Condition is Stable. - Problem is new. - Symptoms have improved. UTI on Admission? No Signatures: Dispatcher [employer] [facility] Moraima Ewing Roman, MD MD rn Calderon, Adela, RN RN aa5 Eliot Brunson RN RN hj Corrections: (The following items were deleted from the chart) 15:58 14:37 Hospitalization Ordered by Brian Quintana DO for Observation. Preliminary bd diagnosis is Hypo-osmolality and hyponatremia; Vomiting; Weakness. Bed requested for Telemetry/MedSurg (observation). Status is Observation. Condition is Stable. Problem is new. Symptoms have improved. UTI on Admission? No. rn 16:27 15:58 05/11/2018 14:37 Hospitalization Ordered by Brian Quintana DO for Observation. hj Preliminary diagnosis is Hypo-osmolality and hyponatremia; Vomiting; Weakness. Bed requested for Telemetry/MedSurg (observation). Status is Observation. Condition is Stable. Problem is new. Symptoms have improved. UTI on Admission? No. bd
--- NOTE | 2018-05-11 14:55 | P.HP ---
Certification for Inpatient Patient admitted to: Observation With expected LOS: <2 Midnights Patient will require the following post-hospital care: None Practitioner: I am a practitioner with admitting privileges, knowledge of patient current condition, hospital course, and medical plan of care. Services: Services provided to patient in accordance with Admission requirements found in Title 42 Section 412.3 of the Code of Federal Regulations Patient History Date of Service: 05/11/18 Primary Care Provider: Dr. Mckeon Reason for admission: Fatigue, nausea and vomiting and elevated blood pressure History of Present Illness: 77-year-old male presented to emergency room with nausea, vomiting, fatigue and elevated blood pressure. Patient was seen in the emergency room several weeks ago. At that time he was diagnosed with hypertension. He was sent home with carvedilol 12.5 mg 1 pill twice daily. Over the last week, he was seen by his PCP to follow up that previous hospitalization. At that time his PCP discontinued his medication and put him on valsartan HCT 320/25 mg daily for his hypertension. Since that time he has been having increasing nausea, vomiting, and weakness. Over the last day he has had poor appetite. He feels dehydrated. The patient came to the emergency room found to be hyponatremic with elevated blood pressure. The patient was stabilized and sent home. Upon leaving he was still feeling weak. The patient was Re assessed and admitted for further evaluation. In the ER sodium level was at 121, total bilirubin 1.7, AST of 47. Cardiac enzymes unremarkable. Lipase unremarkable. GFR at 73. White count 4.2. Hemoglobin 15. CT of the head unremarkable. Patient was admitted for further evaluation. When I saw the patient the ER, he appeared dehydrated. Patient with history of hypertension. Patient stable this time. A friend that is present reports that he does drink non alcoholic beer. She thinks he drinks too much of this. Allergies Sulfa (Sulfonamide Antibiotics) Allergy (Unverified 02/02/15 01:41) Unknown Home medications list reviewed: Yes - Past Medical/Surgical History Diabetic: No -: Hypertension -: Former tobacco use -: Right wrist skin cancer removed Psychosocial/ Personal History: The patient is single. He has no children. He currently lives by himself - Family History Mother -: Cancer (Melanoma) - Social History Smoking Status: Former smoker Alcohol use: No CD- Drugs: No Caffeine use: Yes Place of Residence: Home Review of Systems General: Weakness Eyes: Unremarkable ENT: Unremarkable Respiratory: Unremarkable Cardiovascular: Light Headedness, As per HPI Gastrointestinal: Nausea, Vomiting, As per HPI Genitourinary: Unremarkable Musculoskeletal: Unremarkable Integumentary: Unremarkable Neurological: Weakness, As per HPI Lymphatics: Unremarkable Physical Examination - Physical Exam General: Alert, In no apparent distress, Oriented x3, Cooperative HEENT: Atraumatic, Normocephalic, PERRLA, Other (Dry mucous membranes), EOMI Neck: Supple, No Thyromegaly Respiratory: Clear to auscultation bilaterally, Normal air movement Cardiovascular: Normal pulses, Regular rate/rhythm Gastrointestinal: Normal bowel sounds, Soft and benign, Non-distended, No tenderness, No masses, No rebound, No guarding Musculoskeletal: No erythema, No tenderness, No warmth Integumentary: No tenderness/swelling, No erythema, No warmth, No cyanosis, Other (Dry skin) Neurological: Normal speech, Normal strength at 5/5 x4 extr, Normal tone, Normal affect Assessment and Plan - Plan Impression: Nausea, vomiting, weakness secondary to Symptomatic hyponatremia likely from dehydration Hypertension Plan: Nausea, vomiting, weakness secondary to Symptomatic hyponatremia likely from medication/dehydration: Will start IV fluids. Will check spot urine sodium and urinalysis. Will continue with IV fluids and monitor sodium closely. Will provide medication for nausea. Will recheck lab in the morning. Will check tsh. Will have physical therapy assess ambulation tomorrow. Will provide PPI. Will discontinue valsartan/hydrochlorothiazide as this may be the cause of his hyponatremia. Hypertension: Will discontinue valsartan/hydrochlorothiazide. Will restart carvedilol. Will monitor closely. Will reassess tomorrow. Discharge Plan: Home Plan to discharge in: 24 Hours - Advance Directives Does patient have a Living Will: No Does patient have a Durable POA for Healthcare: No - Code Status/Comfort Care Code Status Assessed: Yes (Patient full code) Time Spent Managing Pts Care (In Minutes): 55
[2018-05-11 15:38] LABS: Thyroid Stimulating Hormone 1.13 uIU/mL (0.360-3.740)
[2018-05-11 16:00] LABS: Absolute Lymphocytes (CBC) 0.4 K/uL (0.7-4.9); Absolute Monocytes 0.4 K/uL (0.1-1.3); Absolute Neutrophil 3.1 K/uL (1.8-8.0); Basophils % 0.2 % (0-1.3); Eosinophils % 0.2 % (0-4.4); Hematocrit 44.3 % (39.6-49.0); Lymphocytes % 10.7 % (15.3-44.8); MPV 8.2 fL (7.6-11.3); Monocytes % 9.9 % (3.3-12.3); RBC Red Blood Cell Count 4.57 M/uL (4.33-5.43)
[2018-05-11 16:22] LABS: Potassium 4.6 mmol/L (3.5-5.1)
[2018-05-11 16:48] VITALS: BMI 23.6
[2018-05-11] MEDS: NA CHLORIDE 0.9% 1,000 ML IV SCH (17:35)
[2018-05-11] MEDS: CARVEDILOL 12.5 MG TAB PO SCH (17:38)
[2018-05-11 19:18] LABS: Urine Appearance CLEAR; Urine Bilirubin NEGATIVE (NEG); Urine Blood NEGATIVE (NEG); Urine Color YELLOW; Urine Glucose NEGATIVE (NEG); Urine Protein NEGATIVE (NEG); Urine Urobilinogen 0.2 mg/dL (0.2-1.0)
[2018-05-11 19:20] LABS: Urine Microscopic Reflex NO UMIC
[2018-05-11] MEDS ORDERED: ENOXAPARIN 40 MG/0.4 ML SQ SCH (21:00)
[2018-05-11 21:53] VITALS: O2SAT 97
[2018-05-12] MEDS: NA CHLORIDE 0.9% 1,000 ML IV SCH (00:21)
[2018-05-12] MEDS: CARVEDILOL 12.5 MG TAB PO SCH (05:30)
[2018-05-12 05:45] LABS: Absolute Monocytes 0.8 K/uL (0.1-1.3); Absolute Neutrophil 2.5 K/uL (1.8-8.0); Basophils % 0.5 % (0-1.3); Eosinophils % 1.5 % (0-4.4); Hematocrit 40.2 % (39.6-49.0); Lymphocytes % 22.3 % (15.3-44.8); MCH 33.4 pg (27.0-35.0); MCV 95.4 fL (80-100); MPV 8.7 fL (7.6-11.3); Monocytes % 18.8 % (3.3-12.3); RBC Red Blood Cell Count 4.21 M/uL (4.33-5.43)
[2018-05-12 06:03] LABS: Magnesium 1.9 mg/dL (1.8-2.4); Potassium 4.1 mmol/L (3.5-5.1)
[2018-05-12 06:20] LABS: Blood Morphology Comment NOT SEEN (NOT SEEN); Platelet Estimate ADEQ; Urine White Blood Cell Casts OK
[2018-05-12] MEDS ORDERED: PANTOPRAZOLE 40MG TABLET PO SCH (06:30)
[2018-05-12 08:47] VITALS: BP 109/67; TEMP 97.9
--- NOTE | 2018-05-12 08:59 | P.DS ---
Admission Date: 05/11/18 Discharge Date: 05/12/18 Primary Care Provider: Dr. Mckeon Disposition: ROUTINE DISCHARGE Discharge Condition: GOOD Reason for Admission: Fatigue, nausea and vomiting and elevated blood pressure Consultations: None Procedures: Medical Problem List: Nausea, vomiting, weakness secondary to Symptomatic hyponatremia likely from dehydration/medication Hypertension Rheumatoid arthritis Brief History of Present Illness: 77-year-old male presented to emergency room with nausea, vomiting, fatigue and elevated blood pressure. Patient was seen in the emergency room several weeks ago. At that time he was diagnosed with hypertension. He was sent home with carvedilol 12.5 mg 1 pill twice daily. Over the last week, he was seen by his PCP to follow up that previous hospitalization. At that time his PCP discontinued his medication and put him on valsartan HCT 320/25 mg daily for his hypertension. Since that time he has been having increasing nausea, vomiting, and weakness. Over the last day he has had poor appetite. He feels dehydrated. The patient came to the emergency room found to be hyponatremic with elevated blood pressure. The patient was stabilized and sent home. Upon leaving he was still feeling weak. The patient was Re assessed and admitted for further evaluation. In the ER sodium level was at 121, total bilirubin 1.7, AST of 47. Cardiac enzymes unremarkable. Lipase unremarkable. GFR at 73. White count 4.2. Hemoglobin 15. CT of the head unremarkable. Patient was admitted for further evaluation. When I saw the patient the ER, he appeared dehydrated. Patient with history of hypertension. Patient stable this time. A friend that is present reports that he does drink non alcoholic beer. She thinks he drinks too much of this. Hospital Course: Patient presented with nausea, vomiting and weakness secondary to symptomatic hyponatremia. This is likely from dehydration related to medication-valsartan/ hydrochlorothiazide. Patient was admitted and given IV fluids. Sodium improved. Blood pressure remained stable on carvedilol. At discharge patient without any significant nausea, vomiting or weakness. At discharge valsartan/ hydrochlorothiazide has been discontinued. At discharge he will continue with carvedilol 12.5 mg 1 pill twice daily. Recommendation is to recheck lab-BMP in 1 week to monitor his sodium. Patient with hypertension. Valsartan/hydrochlorothiazide has been discontinued due to hyponatremia. At discharge patient will continue with carvedilol 12.5 mg 1 pill twice daily. Recommendation is to maintain blood pressures less 150/ 80. Further adjustment can be done by his PCP. If blood pressure remains elevated patient may require additional medication. Will recommend not to use hydrochlorothiazide in the future due to hyponatremia. This can be further addressed by his PCP. Patient may continue with aspirin 81 mg daily. Patient may also continue with folic acid 1 mg daily, methotrexate as directed, and Neurontin 300 mg at night. Patient takes medication for rheumatoid arthritis. Vital Signs/Physical Exam: Temp Pulse Resp BP Pulse Ox 97.9 F 65 17 109/67 97 05/12/18 08:00 05/12/18 08:00 05/12/18 08:00 05/12/18 08:00 05/12/18 08:00 General: Alert, In no apparent distress, Oriented x3, Cooperative HEENT: Atraumatic Neck: Supple Respiratory: Clear to auscultation bilaterally, Normal air movement Cardiovascular: Normal pulses, Regular rate/rhythm Gastrointestinal: Normal bowel sounds, Soft and benign, Non-distended, No tenderness, No masses, No rebound, No guarding Musculoskeletal: No erythema, No tenderness, No warmth Integumentary: No tenderness/swelling, No erythema, No warmth, No cyanosis Neurological: Normal speech, Normal strength at 5/5 x4 extr, Normal tone, Normal affect Laboratory Data at Discharge: WBC 4.3 K/uL (4.3-10.9) 05/12/18 05:07 Hgb 14.0 g/dL (13.6-17.9) 05/12/18 05:07 Hct 40.2 % (39.6-49.0) 05/12/18 05:07 Plt Count 120 K/uL (152-406) L 05/12/18 05:07 Sodium 127 mmol/L (136-145) L 05/12/18 05:07 Potassium 4.1 mmol/L (3.5-5.1) 05/12/18 05:07 BUN 13 mg/dL (7-18) 05/12/18 05:07 Creatinine 0.90 mg/dL (0.55-1.3) 05/12/18 05:07 Glucose 84 mg/dL (74-106) 05/12/18 05:07 Magnesium 1.9 mg/dL (1.8-2.4) 05/12/18 05:07 Triglycerides 38 mg/dL (<150) 05/12/18 05:07 Cholesterol 93 mg/dL (<200) 05/12/18 05:07 HDL Cholesterol 39 mg/dL (40-60) L 05/12/18 05:07 Cholesterol/HDL Ratio 2.38 05/12/18 05:07 Home Medications: Folic Acid 1 mg PO BEDTIME 05/11/18 Gabapentin 300 mg PO BEDTIME 05/11/18 Methotrexate [Methotrexate*] 2.5 mg PO SEECOM 05/11/18 Aspirin [Aspirin EC 81 MG] 81 mg PO DAILY #90 tablet. 05/12/18 Carvedilol 12.5 mg PO BID #60 tablet 05/12/18 New Medications: Aspirin [Aspirin EC 81 MG] 81 mg PO DAILY #90 tablet. Carvedilol 12.5 mg PO BID #60 tablet Patient Discharge Instructions: 1. Patient will need to follow up with his PCP in 1 week to follow up this hospitalization. 2. Patient presented with nausea , vomiting and weakness secondary to symptomatic hyponatremia. This is likely from dehydration related to medication-valsartan/hydrochlorothiazide. Patient was admitted and given IV fluids. Sodium improved. Blood pressure remained stable on carvedilol. At discharge patient without any significant nausea, vomiting or weakness. At discharge valsartan/hydrochlorothiazide has been discontinued. At discharge he will continue with carvedilol 12.5 mg 1 pill twice daily. Recommendation is to recheck lab-BMP in 1 week to monitor his sodium. 3. Patient with hypertension. Valsartan/hydrochlorothiazide has been discontinued due to hyponatremia. At discharge patient will continue with carvedilol 12.5 mg 1 pill twice daily. Recommendation is to maintain blood pressures less 150/80. Further adjustment can be done by his PCP. If blood pressure remains elevated patient may require additional medication. Will recommend not to use hydrochlorothiazide in the future due to hyponatremia. This can be further addressed by his PCP. Patient may continue with aspirin 81 mg daily. 4. Patient may also continue with folic acid 1 mg daily, methotrexate as directed, and Neurontin 300 mg at night. Patient takes these medication for rheumatoid arthritis. Diet: AHA Activity: Fall precautions Time spent managing pt's care (in minutes): 55
[2018-05-12] MEDS ORDERED: ASPIRIN EC 81 MG TAB PO SCH (09:00)
[2018-05-12] MEDS ORDERED: HOME MED 1 EA UNK (Valsartan/Hydrochlorothiazide [Valsartan-Hctz 320-25 Mg Tab] 1 TAB) PO SCH (09:00)
[2018-05-12] MEDS ORDERED: VALSARTAN 160 MG TAB PO SCH (09:00)
[2018-05-12] MEDS ORDERED: CARVEDILOL 12.5 MG TAB PO SCH (09:00)
[2018-05-12] MEDS ORDERED: hydroCHLOROthiazide 25 MG TAB PO SCH (09:00)
[2018-05-12] MEDS ORDERED: GABAPENTIN 300 MG CAP PO SCH (21:00)
[2018-05-12] MEDS ORDERED: FOLIC ACID 1 MG TABLET PO SCH (21:00)
[2018-05-15] MEDS ORDERED: METHOTREXATE 2.5 MG TAB PO SCH (09:00)
== END 2018-05-12 10:10 | disposition home or self-care (01) ==
LOC: ER 13:21 → ERHOLD 14:23 → 2ND 16:13
PROVIDERS: ADMIT Family Medicine; ATTEND Family Medicine
DX: E87.1 Hypo-osmolality and hyponatremia (principal); R11.2 Nausea with vomiting, unspecified; R53.1 Weakness; M06.9 Rheumatoid arthritis, unspecified; I10 Essential (primary) hypertension
CPT/HCPCS: 36415; 80048 ×2; 80061 ×2; 81003; 83735 ×2; 83935; 84300; 84439; 84443; 85025 ×2; 99285; G0378 ×2; J7030 ×2; J1650

== ENCOUNTER 2021-12-26 10:19 | Inpatient (IN) | payer OTHER ==
--- OUTSIDE RECORDS SUMMARY | 2021-12-26 10:25 | XMS REPORT | Continuity of Care Document ---
:[address] [facility] t Address [address] [place] [address] [address] [place] [address] Care Team Providers Name Role Phone MORRIS HOLGUIN Attending Clinician Unavailable Richardson HOLGUIN Attending Clinician Unavailable Jaymie Attending Clinician Unavailable Ezio LILLY, P Attending Clinician Katerina LILLY, M Attending Clinician MORRIS HOLGUIN Admitting Clinician Unavailable Jaymie Admitting Clinician Unavailable Payers Payer Name Policy Type Policy Number Effective Date Expiration Date S yoseph MEDICARE PART A [id number] \T\ B - MEDICARE OPEN ACCESS PLUS [id number] - CIGNA HMO/QPOS/SELECT - [id number] 2013 AETNA 00:00:00 MEDICARE A B [id number] 2007 00:00:00 CIGNA [id number] 2016 HMO/POS/OPEN 00:00:00 ACCESS MEDICARE B-[place]: [id number] 2007 [employer] 00:00:00 AETNA - MEBS - [id number] 2003 CHOICE - NAP (POS 00:00:00 II) Problems Condition Condition Condition Status Onset Resolution Last Treating Co mments Source Name Details Category Date Date Treatment Clinician Date Burn Burn Disease Active [facility] 8-18 College 00:00: of 00 Medicin e Back pain Back pain Disease Active [facility] 4-07 College 00:00: of 00 Medicin e 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Cecillo [facility] alcohol alcohol 2-10 College use use 00:00: of 00 Medicin e High risk High risk Disease Active 2013-07 [facility] medication medication 1-06 Co llege use use 00:00: of 00 Medicin e Psoriatic Psoriatic Disease Active [facility] arthritis arthritis 13 Juan ege (HCCode) (HCCode) 00:00: of 00 Medicin e Allergies, Adverse Reactions, Alerts Allergy Allergy Status Severity Reaction(s) Onset Inactive Treating Comm ents Source Name Type Date Date Clinician SULFA Allergy Active Hives [facility]03 [facility]OT [facility]) Sulfa Propensi Active Hives [facility] Antibiot ty to 12-17 College ics adverse 00:00: of reaction 00 Medicin s to e drug Social History Social Habit Start Date Stop Date Quantity Comments Source Sex Assigned At [facility] [employer] [facility] [employer] Tobacco use and 2020-04-12 2020-04-12 Never used [facility] [employer] exposure 00:00:00 00:00:00 of Medicine Alcohol intake 2020-04-12 2020-04-12 Ex-drinker [facility] [employer]ge 00:00:00 00:00:00 (finding) of Medicine Alcohol Comment 2018-11-03 2018-11-03 drinks non [facility] Co llege 00:00:00 00:00:00 alcoholic beer of Medicin e Smoking Status Start Date Stop Date Source Former smoker 2020-04-12 00:00:00 2020-04-12 00:00:00 [facility] ollejaymie of Medicine Medications Ordered Filled Start Stop Current Ordering Indication Dosage Frequency Signature Comments Components Source Medication Medication Date Date Medication? Clinician (SIG) Name Name methotrexat Yes TAKE 4 [facility] e 2.5 MG 9-30 TABLETS BY Colle ge tablet 00:00: MOUTH ONCE of 00 A WEEK Medicin e folic acid Yes [id number] 1mg Take 1 Tab Michel (FOLVITE) 1 5-26 by mouth Juan ege MG tablet 00:00: daily. of 00 Medicin e gabapentin Yes [id number] TAKE ONE Michel (NEURONTIN) 5-26 CAPSULE BY Co llege 300 MG 00:00: MOUTH of capsule 00 NIGHTLY Medicin e carvedilol Yes 12.5mg Take 12.5 [facility] (COREG) 8-27 mg by College 12.5 MG 18:03: mouth 2 of tablet 10 times Medicin daily e (with meals). carvedilol Yes 12.5mg Take 12.5 [facility] (COREG) 8-27 mg by College 12.5 MG 18:03: mouth 2 of tablet 10 times Medicin daily e (with meals). gabapentin Yes [id number] TAKE ONE [facility] (NEURONTIN) 8-27 CAPSULE BY Co llege 300 MG 00:00: MOUTH of capsule 00 NIGHTLY Medicin e folic acid Yes [id number] 1mg Take 1 Tab Michel (FOLVITE) 1 -27 by mouth Juan ege MG tablet 00:00: daily. of 00 Medicin e methotrexat Yes [id number] 10mg Take 4 [facility] e 4-30 Tabs by [place] (RHEUMATREX 00:00: mouth of ) 2.5 MG 00 every 7 Medicin tablet days. e folic acid 2019- No [id number] 1mg Take 1 Tab [facility] (FOLVITE) 1 -30 - by mouth Col lege MG tablet 00:00: 00:00 daily. of 00 :00 Medicin e gabapentin 2019- No [id number] TAKE ONE Michel (NEURONTIN) 4-30 - CAPSULE BY C ollege 300 MG 00:00: 00:00 MOUTH of capsule 00 :00 NIGHTLY Medicin e Vital Signs Vital Name Observation Time Observation Value Comments Source HEIGHT 2020-08-14 11:13:00 195.6 cm WEIGHT 2020-08-14 11:13:00 95.255 kg Systolic blood 2019-03-02 18:03:00 119 mm[Hg] [facility] pressure Medicine Diastolic blood 2019-03-02 18:03:00 74 mm[Hg] [facility] pressure Medicine Heart rate 2019-03-02 18:03:00 65 /min [facility] Body temperature 2019-03-02 18:03:00 36.78 [facility] Respiratory rate 2019-03-02 18:03:00 17 /min [facility] Body height 2019-03-02 18:03:00 194.3 cm [facility] Body weight 2019-03-02 18:03:00 93.078 kg [facility] BMI 2019-03-02 18:03:00 24.65 kg/m2 [facility] Oxygen saturation in 2019-03-02 18:03:00 97 /min [facility] Arterial blood by [facility] Pulse oximetry Procedures Procedure Date / Time Performing Clinician Source Performed COMPREHENSIVE METABOLIC 2019-03-02 18:45:00 Tania Borges [facility] C-REACTIVE PROTEIN 2019-03-02 18:45:00 Tania Borges [facility] CBC W/AUTO DIFF WITH 2019-03-02 18:45:00 Tania Borges [facility] SEDIMENTATION RATE 2019-03-02 18:45:00 Tania Borges [facility] Plan of Care Planned Activity Planned Date Details Comments Source Future Scheduled Test MEDICARE AWV [code = [facility] MEDICARE AWV] Medicine Future Scheduled Test TETANUS SHOT (ADULT) [facility] [code = TETANUS SHOT Medicin e (ADULT)] Future Scheduled Test FALL SCREEN [code = [facility] FALL SCREEN] Medicine Future Scheduled Test PNEUMOVAX >=65 [facility] (PPSV23) [code = Medicine PNEUMOVAX >=65 (PPSV23)] Future Scheduled Test PREVNAR >= 65 (PCV13) [facility] [code = PREVNAR >= 65 Medici ne (PCV13)] Future Scheduled Test FLU VACCINE > 6 [facility] [employer] [code = FLU Medicine VACCINE > 6 MONTHS] Future Scheduled Test TETANUS SHOT (ADULT) [facility] [code = TETANUS SHOT Medicin e (ADULT)] Future Scheduled Test ZOSTER VACCINE ([facility] 2) [code = ZOSTER Medicine VACCINE (1 of 2)] Future Scheduled Test FALL SCREEN [code = [facility] FALL SCREEN] Medicine Future Scheduled Test PNEUMOVAX >=65 [facility] (PPSV23) [code = Medicine PNEUMOVAX >=65 (PPSV23)] Future Scheduled Test FLU VACCINE > 6 [facility] [employer] [code = FLU Medicine VACCINE > 6 MONTHS] Encounters Start End Encounter Admission Attending Care Care Encounter Source Date/Time Date/Time Type Type Clinicians Facility Department ID 2021-04-12 Outpatient LAWRENCE HOLGUIN Surgery [id number] [facility] 10:11:00 MARCELL 2021-02-14 2021-02-14 Outpatient HILDA HOLGUIN [facility] [id number] [facility] 10:58:59 12:37:14 MARCELL [place] ge of Medicin e 2020-08-14 2020-08-14 Outpatient [facility] [id number] [facility] 00:00:00 00:00:00 2020-05-24 2020-05-24 Outpatient Brown_R [facility] MMG [id number] [place] 02:29:00 02:29:00 [facility] 2020-04-12 2020-04-12 Office HILDA Holguin [id number] [facility] 10:14:17 10:19:17 Visit Marcell Bai AMBULATOR [id number] College Y 0.2.7.2.686 of [id number] Medi nj 300 e 2019-03-02 2019-03-02 Office HILDA Borges [id number] [facility] 12:55:07 14:43:54 Visit Tania M AMBULATOR 350.1.13.21 College Y 0.2.7.2.686 of [id number] Medi nj 370 e 2016-07-18 2016-07-18 Outpatient Brown_R MMG MMG [id number] [place] 10:41:00 10:41:00 0615 [facility] Results Test Description Test Time Test Comments Results Result Comments Source SEDIMENTATION RATE MODIFIED [facility] 2019-03-03 10:51:06 Test Item Value Reference Range Interpretation Comme nts ERYTHROCYTE SEDIMENTATION RATE See_Comment Unless Otherwise Indicated, (test code = 4537-7) All Lulu ting Performed At: Clinical Pathol ogy Formerly [facility], [address] [place] [address] Laboratory Di stephany: Yosi Ayon M.D. CLIA Number [id number] [place]. [id number] [Auto mated message] The system which ge nerated this result transmitted ref erence range: 0 - 15 MM/HOUR. The re ference range was not used to interpr et this result as normal/abnormal . [facility] [id number] 09:06:51 Test Item Value Reference Range Interpretation Comments C-REACTIVE PROTEIN See_Comment H Unless (test code = 1987-11) Otherwi se Indicated, All Testing Per formed At: [facility], [address] [facility], [place] [address] Laboratory Dire ctor: Yosi sanabria M.D. CLIA Num [place] [id number] Cap [place]reditation [place] o. [id number] [Auto mated message] The sy stem which generated this result transmit ayse reference range : <0.5 MG/DL. The refe rence range was not u sed to interpret this result as normal/abnor mal. Lab Interpretation Abnormal (test code = 65812-3) [facility] [id number] 09:05:22 Test Item Value Reference Range Interpretation Comments GLUCOSE (test code = See_Comment [Autom ated message] 2345-7) The system [employer] generated this result transmitted ref erence range: 70 - 99 MG/DL. The reference r joesph was not used to interpret this result as normal/abnor mal. BLOOD UREA NITROGEN See_Comment L [Automa ayse message] (test code = 3091-6) The sys tem which generated this result transmitted ref erence range: 8 - 23 M G/DL. The reference r joesph was not used to interpret this result as normal/abnor mal. CREATININE (test code = See_Comment [Au tomated message] 2160-0) The system [employer] generated this result transmitted ref erence range: 0.80 - 1 .40 MG/DL. The refe rence range was not u sed to interpret this result as normal/abnor mal. EGFR AA (test code = See_Comment [Autom ated message] 07516-8) The system [employer] generated this result transmitted ref erence range: >60 ML/MIN/1.73. Th e reference range was not used to int erpret this result as normal/abnormal . EGFR (test code = See_Comment [Automate d message] 15707-2) The system [employer] generated this result transmitted ref erence range: >60 ML/MIN/1.73. Th e reference range was not used to int erpret this result as normal/abnormal . BUN/CREAT RATIO (test See_Comment [Auto mated message] code = 3097-3) The system [facility] generated this result transmitted ref erence range: 6 - 28 R ATIO. The reference r joesph was not used to interpret this result as normal/abnor mal. SODIUM (test code = See_Comment L [Automa ayse message] 2951-2) The [facility] generated this result transmitted ref erence range: 133 - 14 6 MEQ/L. The refe rence range was not u sed to interpret this result as normal/abnor mal. POTASSIUM (test code = See_Comment [Aut omated message] 2823-3) The system [facility] generated this result transmitted ref erence range: 3.5 - 5. 4 MEQ/L. The refe rence range was not u sed to interpret this result as normal/abnor mal. CHLORIDE (test code = See_Comment L [Auto mated message] 2075-0) The system [facility] generated this result transmitted ref erence range: 95 - 107 MEQ/L. The reference r joesph was not used to interpret this result as normal/abnor mal. CO2 (test code = See_Comment [Automated message] 1963-8) The system [facility] generated this result transmitted ref erence range: 19 - 31 MEQ/L. The reference r joesph was not used to interpret this result as normal/abnor mal. CALCIUM (test code = See_Comment [Autom ated message] 45377-0) The system [facility] generated this result transmitted ref erence range: 8.5 - 10 .5 MG/DL. The refe rence range was not u sed to interpret this result as normal/abnor mal. PROTEIN TOTAL (test See_Comment [Automa ayse message] code = 2885-2) The system [facility] generated this result transmitted ref erence range: 6.1 - 8. 3 G/DL. The reference r joesph was not used to interpret this result as normal/abnor mal. ALBUMIN (test code = See_Comment [Autom ated message] 46653-8) The system [facility] generated this result transmitted ref erence range: 3.5 - 5. 2 G/DL. The reference r joesph was not used to interpret this result as normal/abnor mal. GLOBULINS, SERUM, TOTAL See_Comment [Au tomated message] (test code = 67605-1) The sy stem which generated this result transmitted ref erence range: 1.9 - 3. 7 G/DL. The reference r joesph was not used to interpret this result as normal/abnor mal. A/G RATIO (test code = See_Comment [Aut omated message] 1759-0) The system [employer] generated this result transmitted ref erence range: 1.0 - 2. 6 RATIO. The refe rence range was not u sed to interpret this result as normal/abnor mal. BILIRUBIN TOTAL (test See_Comment [Auto mated message] code = 1974-2) The system [employer] generated this result transmitted ref erence range: <=1.2 MG /DL. The reference r joesph was not used to interpret this result as normal/abnor mal. ALKALINE PHOSPHATASE 77 U/L 40-125 (test code = 6768-6) AST (SGOT) (test code = 28 U/L 9-50 1920-8) ALT (SGPT) (test code = 6 U/L 5-50 Unless 1744-2) Otherwise Indic ated, All Testing Per formed At: [facility], [address] [place] [address] Laboratory Dire ctor: Yosi sanabria M.D. CLIA Num [facility] [id number] Cap [place]reditation [place] o. [id number] Lab Interpretation Abnormal (test code = 89521-5) [facility] W/AUTO DIFF WITH [id number] 08:08:35 Test Item Value Reference Range Interpretation Comments WHITE BLOOD CELL COUNT See_Comment [Aut omated message] (test code = 05875-3) The sy stem which generated this result transmitted ref erence range: 4.0 - 11 .0 K/UL. The refer ence range was not u sed to interpret this result as normal/abnor mal. RED BLOOD CELL COUNT See_Comment [Autom ated message] (test code = 25269-0) The sy stem which generated this result transmitted ref erence range: 4.10 - 5 .70 M/UL. The refer ence range was not u sed to interpret this result as normal/abnor mal. HEMOGLOBIN (test code = See_Comment [Au tomated message] 718-7) The system whic h generated this result transmitted ref erence range: 13.0 - 1 7.0 G/DL. The refer ence range was not u sed to interpret this result as normal/abnor mal. HEMATOCRIT (test code = 41.3 % 37-49 02103-5) MEAN CORPUSCULAR VOLUME 94.7 fL 80-100 (test code = 16102-2) MEAN CORPUSCULAR 32.8 PG 27-34 HEMOGLOBIN (test code = 24147-2) MEAN CORPUSCULAR See_Comment [Automated message] HEMOGLOBIN CONC (test The sy stem which code = 74579-7) generated th is result transmitted ref erence range: 32.0 - 3 5.5 G/DL. The refer ence range was not u sed to interpret this result as normal/abnor mal. RED CELL DISTRIBUTION 13.6 % 11-15 WIDTH (test code = 57081-4) NEUTROPHILS % (test 58.3 % 40-74 code = 22598-6) LYMPHOCYTES % (test 21.5 % 19-48 code = 28272-8) MONOCYTES % (test code 13.2 % 4-13 H = 25171-9) EOSINOPHILS % (test 5.6 % 0-7 code = 08994-5) BASOPHILS % (test code 1.4 % 0-2 = 91252-0) PLATELET COUNT (test See_Comment Unless code = 60488-9) Otherwise In dicated, All Testing Per formed At: [facility], [address] [place] [address] Laboratory Dire ctor: Yosi sanabria M.D. CLIA Num [place] [id number] [place]reditation [place] o. [id number] [Auto mated message] The sy stem which generated this result transmit ayse reference range : 130 - 400 K/UL. The reference range was not used to int erpret this result as normal/abnormal . Lab Interpretation Abnormal (test code = 11305-5) [facility]
--- NOTE | 2021-12-26 11:14 | RAD REPORT ---
EXAM DESCRIPTION: CT - Head Brain Wo Cont - 12/26/2021 11:03 am CLINICAL HISTORY: CVA/general weakness COMPARISON: 2018 TECHNIQUE: Computed axial tomography of the head was obtained. IV contrast was not requested. All CT scans are performed using dose optimization technique as appropriate and may include automated exposure control or mA/KV adjustment according to patient size. FINDINGS: An intracranial bleed is not seen . 2.9 centimeter low-density areas present within the left basal ganglia extending into the left bakery pastry internship al capsule and left caudate. There is mild compression of the lateral ventricle. No hydrocephalus. No extra-axial fluid collection is noted. Mild low-density areas within periventricular, deep and subcortical white matter likely represent isc hemic changes secondary to small vessel disease. Fluid within the sinuses/ mastoids is not seen. IMPRESSION: 2.9 centimeter low-density area within the left basal ganglia, left internal capsule and left caudate appears acute/subacute. If clinically indicated further evaluation with MRI may be help ful
[2021-12-26] MEDS ORDERED: NA CHLORIDE 0.9% 1,000 ML ONE (11:30)
[2021-12-26 11:40] LABS: Absolute Lymphocytes (CBC) 0.7 K/uL (0.7-4.9); Hematocrit 44.5 % (39.6-49.0); Lymphocytes % 15.7 % (15.3-44.8); MCV 95.3 fL (80-100); MPV 7.8 fL (7.6-11.3); RBC Red Blood Cell Count 4.67 M/uL (4.33-5.43)
[2021-12-26 11:54] LABS: Potassium 3.8 mmol/L (3.5-5.1)
--- NOTE | 2021-12-26 12:24 | RAD REPORT ---
EXAM DESCRIPTION: Joy Single View12/26/2021 11:17 am CLINICAL HISTORY: Cough COMPARISON: 2017 FINDINGS: Mild prominence of the interstitial pattern within the lungs bilaterally Heart is normal size IMPRESSION: Mild prominence interstitial pattern within the lungs bilaterally may indicate pneumonit is, atypical pneumonia or
--- NOTE | 2021-12-26 12:43 | ER ---
Nurse's Notes [facility] Name: Rufino Sanders Age: 81 yrs Sex: Male : 1940 Arrival Date: 12/26/2021 Time: 10:26 Bed 17 Private MD: Josh Mckeon T Diagnosis: Cerebral infarction, unspecified-Subacute;Weakness Presentation: 12/26 10:37 Chief complaint: Generalized weakness that began 5-6 days ago. Neighbor states that ss patient was seen at [place] 2 days ago and was diagnosed with "severe dehydration and an old stroke". Pt states he is not feeling much better. Coronavirus screen: Client denies travel out of the [place] in the last 14 days. Ebola Screen: Patient denies exposure to infectious person. Patient denies travel to an Ebola-affected area in the 21 days before illness onset. Initial Sepsis Screen: Does the patient meet any 2 criteria? No. Patient's initial sepsis screen is negative. Does the patient have a suspected source of infection? No. Patient's initial sepsis screen is negative. Risk Assessment: Do you want to hurt yourself or someone else? Patient reports no desire to harm self or others. Onset of symptoms was December 10, 2021. 10:37 Method Of Arrival: Ambulatory 10:37 Acuity: FABIEN 3 ss Historical: - Allergies: 10:39 Sulfa (Sulfonamide Antibiotics); ss - PMHx: 10:39 Rheumatoid Arthritis; ss - Family history:: not pertinent. - Hospitalizations: : No recent hospitalization is reported. Screenin:55 Abuse screen: Denies threats or abuse. Nutritional screening: No deficits noted. [facility] Tuberculosis screening: No symptoms or risk factors identified. 10:55 Fall Risk Gait- Weak (10 pts.). [facility] Assessment: 10:30 General: Appears in no apparent distress. Behavior is cooperative. [facility] 10:30 Pain: Denies pain. [facility] 12:00 Reassessment: No changes from previously documented assessment. Patient and/or family [facility] updated on plan of care and expected duration. Pain level reassessed. Patient is alert, oriented x 3, equal unlabored respirations, skin warm/dry/pink. Patient denies pain at this time. Neuro: No deficits noted. Level of Consciousness is awake, alert, obeys commands, Oriented to person, place, time, situation, Pest Control Worker are equal bilaterally Moves all extremities. Gait is steady, shuffling, Speech is normal, Facial symmetry appears normal, Pupils are PERRLA, Intact Babinski is positive. Respiratory: No deficits noted. 13:30 Reassessment: No changes from previously documented assessment. Patient denies pain at [facility] this time. 15:00 Reassessment: No changes from previously documented assessment. Patient is alert, 6 oriented x 3, equal unlabored respirations, skin warm/dry/pink. 15:00 General: family going home waiting for room assignment. call light in reach. . jh6 Vital Signs: 10:42 BP 135 / 79; Pulse 80; Resp 16; Temp 97.9(TE); Pain 0/10; ss 11:45 BP 131 / 67; Pulse 57; Resp 16; Pulse Ox 100% ; Pain 0/10; jh6 12:30 BP 138 / 67; Pulse 51; Resp 17; Pulse Ox 100% ; Pain 0/10; jh6 13:30 BP 140 / 70; Pulse 51; Resp 16; Pulse Ox 100% ; Pain 0/10; jh6 15:00 BP 143 / 71; Pulse 55; Resp 16; Pulse Ox 100% ; Pain 0/10; jh6 16:00 BP 142 / 70; Pulse 45; Resp 16; Temp 97.7(O); Pulse Ox 99% ; Pain 0/10; jh6 ED Course: 10:26 Patient arrived in ED. mr 10:26 Josh Mckeon MD is Private Physician. mr 10:31 Bridger Schaffer MD is Attending Physician. rn 10:39 Triage completed. ss 10:39 Arm band placed on right wrist. ss 10:45 Candace Dias, HOLLIS is Primary Nurse. jh6 11:[address] jh6 11:05 CT Head Brain wo Cont In Process Unspecified. EDMS 11:20 XRAY Chest (1 view) In Process Unspecified. EDMS 12:42 Fredy Schaffer MD is Hospitalizing Provider. rn Administered Medications: 11:26 Drug: NS 0.9% 1000 ml Route: IV; Rate: 1000 ml; Site: right antecubital; jh6 13:04 Drug: Aspirin 325 mg Route: PO; jh6 13:04 Drug: foLIC Acid 1 mg Route: IVPB; Site: right forearm; jh6 Outcome: 12:43 Decision to Hospitalize by Provider. rn 17:55 Patient left the ED. jh Signatures: Dispatcher [employer] Brina Dhillon Roman, MD MD rn Smirch, Shelby, RN RN ss Hastedt, Jennifer, RN RN jh6
--- NOTE | 2021-12-26 12:43 | EDPHYS ---
Physician Documentation [facility] Name: Rufino Sanders Age: 81 yrs Sex: Male : 1940 Arrival Date: 12/26/2021 Time: 10:26 Bed 17 Private MD: Josh Mckeon T ED Physician Bridger Schaffer HPI: 12/26 11:20 This 81 yrs old Male presents to ER via Ambulatory with complaints of Weakness, Altered rn Mental Status. 11:20 The patient presents to the emergency department with weakness of the. Onset: The rn symptoms/episode began/occurred 5 day(s) ago. Context: occurred at home, occurred while the patient was at rest. Associated signs and symptoms: Pertinent positives: weakness, Pertinent negatives: fever, neck stiffness, seizure. Severity of symptoms: At their worst the symptoms were moderate in the emergency department the symptoms are unchanged. Current symptoms: Currently, the patient is not experiencing any symptoms. The patient has experienced a previous episode. The patient has been recently seen by a physician:. Pt reports generalized weakness, began 5 days ago, reports unable to walk or get up by himself. No headache/vision changes, no focal weakness. No numbness. No chest or abd pain. NO urinary symptoms. Seen at [place] 2 days ago, CT head showed old stroke but nothing new. Told dehydrated and sent home.. Historical: - Allergies: 10:39 Sulfa (Sulfonamide Antibiotics); ss - PMHx: 10:39 Rheumatoid Arthritis; ss - Family history:: not pertinent. - Hospitalizations: : No recent hospitalization is reported. ROS: 11:20 Constitutional: Negative for fever, chills, and weight loss, Eyes: Negative for injury, rn pain, redness, and discharge, Neck: Negative for injury, pain, and swelling, Cardiovascular: Negative for chest pain, palpitations, and edema, Respiratory: Negative for shortness of breath, cough, wheezing, and pleuritic chest pain, Abdomen/GI: Negative for abdominal pain, nausea, vomiting, diarrhea, and constipation, Back: Negative for injury and pain, MS/Extremity: Negative for injury and deformity, Skin: Negative for injury, rash, and discoloration, Neuro: Negative for headache, numbness, tingling, and seizure. Exam: 11:20 Constitutional: This is a well developed, well nourished patient who is awake, alert, rn and in no acute distress. Head/Face: Normocephalic, atraumatic. ENT: dry MM Cardiovascular: Regular rate and rhythm. No pulse deficits. Respiratory: No increased work of breathing, no retractions or nasal flaring. Abdomen/GI: Soft, non-tender Back: No spinal tenderness. No costovertebral tenderness. Full range of motion. Skin: Warm, dry with normal turgor. Normal color with no rashes, no lesions, and no evidence of cellulitis. MS/ Extremity: Pulses equal, no cyanosis. Neurovascular intact. Full, normal range of motion. Equal circumference. Neuro: Awake and alert, GCS 15, oriented to person, place, time, and situation. Cranial nerves II-XII grossly intact. Motor strength 4/5 in all extremities. Sensory grossly intact. Vital Signs: 10:42 BP 135 / 79; Pulse 80; Resp 16; Temp 97.9(TE); Pain 0/10; ss 11:45 BP 131 / 67; Pulse 57; Resp 16; Pulse Ox 100% ; Pain 0/10; jh6 12:30 BP 138 / 67; Pulse 51; Resp 17; Pulse Ox 100% ; Pain 0/10; jh6 13:30 BP 140 / 70; Pulse 51; Resp 16; Pulse Ox 100% ; Pain 0/10; jh6 15:00 BP 143 / 71; Pulse 55; Resp 16; Pulse Ox 100% ; Pain 0/10; jh6 16:00 BP 142 / 70; Pulse 45; Resp 16; Temp 97.7(O); Pulse Ox 99% ; Pain 0/10; jh6 MDM: 10:31 Patient medically screened. rn 12:41 Data reviewed: vital signs, nurses notes, lab test result(s), EKG, radiologic studies, rn CT scan, and as a result, I will admit patient. Counseling: I had a detailed discussion with the patient and/or guardian regarding: the historical points, exam findings, and any diagnostic results supporting the discharge/admit diagnosis, lab results, radiology results, the need for further work-up and treatment in the hospital. Response to treatment: There is no appreciated change of the patient's symptoms at this time, and as a result, I will admit patient. Admission orders: after a detailed discussion of the patient's condition and case, the admit orders are written by me. ED course: CT shows possible subacute CVA, will admit for further eval as patient weak, difficulty walking. . 12/26 10:44 Order name: CBC with Diff; Complete Time: 12:30 rn 12/26 10:44 Order name: Basic Metabolic Panel; Complete Time: 12:30 rn 12/26 10:44 Order name: SARS-COV-2 RT PCR (Document "Date of Onset" if Symptomatic); Complete Time: rn 12:43 12/26 10:44 Order name: Blood Culture Adult (2) rn 12/26 10:44 Order name: Procalcitonin; Complete Time: 12:30 rn 12/26 10:44 Order name: [place] Screen Profile; Complete Time: 12:30 rn 12/26 15:18 Order name: CBC with Automated Diff [facility] 12/26 15:18 Order name: CBC with Automated Diff [facility] 12/26 15:18 Order name: Comprehensive Metabolic Panel [facility] 12/26 15:18 Order name: Comprehensive Metabolic Panel [facility] 12/26 15:18 Order name: Lipid Profile [facility] 12/26 15:19 Order name: Lipid Profile [facility] 12/26 15:19 Order name: Magnesium [facility] 12/26 15:19 Order name: Magnesium [facility] 12/26 10:44 Order name: IV Start; Complete Time: 11:23 rn 12/26 10:44 Order name: XRAY Chest (1 view); Complete Time: 12:30 rn 12/26 10:44 Order name: CT Head Brain wo Cont; Complete Time: 11:20 rn 12/26 10:44 Order name: Cardiac monitoring; Complete Time: 11:23 rn 12/26 15:13 Order name: CONS Physician Consult [facility] 12/26 15:14 Order name: Stroke Protocol [facility] 12/26 15:15 Order name: Echo with Doppler [facility] 12/26 15:15 Order name: Carotid Artery Bilateral [facility] 12/26 15:18 Order name: Physical Therapy Consult [facility] 12/26 15:18 Order name: Social Service Consult [facility] 12/26 15:18 Order name: Speech Therapy Consult [facility] 12/26 15:18 Order name: NPO [facility] 12/26 15:19 Order name: Patient Safety Orders [facility] 12/26 10:44 Order name: O2 Sat Monitoring; Complete Time: 11:23 rn Administered Medications: 11:26 Drug: NS 0.9% 1000 ml Route: IV; Rate: 1000 ml; Site: right antecubital; [facility] 13:04 Drug: Aspirin 325 mg Route: PO; 6 13:04 Drug: foLIC Acid 1 mg Route: IVPB; Site: right forearm; jh6 Disposition Summary: 12/26/21 12:43 Hospitalization Ordered Hospitalization Status: Observation rn Provider: Fredy Schaffer rn Location: Telemetry/MedSurg (observation) rn Condition: Stable rn Problem: new rn Symptoms: are unchanged rn Bed/Room Type: Standard rn Room Assignment: 201(12/26/21 16:05) bd Diagnosis - Cerebral infarction, unspecified - Subacute rn - Weakness rn Forms: - Medication Reconciliation Form rn - SBAR form rn Signatures: Dispatcher [employer] Moraima Zepeda Roman, MD MD rn Smirch, Shelby, RN RN ss Hastedt, Jennifer RN RN [facility] Corrections: (The following items were deleted from the chart) 16:05 12:43 rn bd
[2021-12-26] MEDS ORDERED: ASPIRIN 325 MG TAB ONE (13:07)
[2021-12-26] MEDS ORDERED: FOLIC ACID 5 MG/ML VIAL ONE (13:07)
[2021-12-26] MEDS ORDERED: ACETAMINOPHEN 500 MG TAB PO PRN (15:13)
[2021-12-26] MEDS ORDERED: ONDANSETRON 4 MG/2 ML VIAL IV PRN (15:13)
--- NOTE | 2021-12-26 15:27 | P.HP ---
Certification for Inpatient Patient admitted to: Observation With expected LOS: <2 Midnights Practitioner: I am a practitioner with admitting privileges, knowledge of patient current condition, hospital course, and medical plan of care. Services: Services provided to patient in accordance with Admission requirements found in Title 42 Section 412.3 of the Code of Federal Regulations Patient History Date of Service: 12/26/21 Reason for admission: acute CVA History of Present Illness: 81yo, PMH: HTN, RA Presents to ED due to generalized weakness - fell and couldn't get up. Has felt weak, slow to move/respond over the last ~1 week. He had a very mild cough initially. He was taken to [place] 2 days ago, had negative workup / negative CT according to family. His confusion / altered mental status seemed to worsen, and he got weaker. Sister is visiting from out of town and say she intermittently had periods where he seemed to be "talking gibberish and even texted gibberish". He also reports feeling more unsteady on his feet. Patient denies fever/chills, no shortness of breath, no nausea/vomiting, no diarrhea, no change in urinary habits, +decreased PO intake. Denies smoking history, no CVA history. Lives alone and is typically very independent. In the ED, labs were unremarkable, CT noted 2.9cm left lesion in basal ganglia. Allergies Sulfa (Sulfonamide Antibiotics) Allergy (Intermediate, Verified 05/11/18 16:43) Hives Home Medications: Folic Acid 1 mg PO BEDTIME 05/11/18 Gabapentin 300 mg PO BEDTIME 05/11/18 Methotrexate [Methotrexate*] 2.5 mg PO SEECOM 05/11/18 Aspirin [Aspirin EC 81 MG] 81 mg PO DAILY #90 tablet. 05/12/18 carvediloL [Carvedilol] 12.5 mg PO BID #60 tablet 05/12/18 - Past Medical/Surgical History Diabetic: No -: Hypertension -: Former tobacco use -: Collapsed Lung 1967 -: arthritis -: ptosis, s/p L corneal transplant -: Right wrist skin cancer removed -: L corneal transplant Psychosocial/ Personal History: The patient is single. He has no children. He currently lives by himself - Family History Mother -: Cancer (Melanoma) Sister -: Cancer Brother -: Other (see notes) (parkinson's ) - Social History Smoking Status: Unknown if ever smoked Alcohol use: No CD- Drugs: No Caffeine use: Yes Place of Residence: Home Review of Systems 10-point ROS is otherwise unremarkable Physical Examination - Physical Exam General: Alert, In no apparent distress, Oriented x3 HEENT: EOMI Neck: Supple, No LAD Respiratory: Clear to auscultation bilaterally, Normal air movement Cardiovascular: No edema, Regular rate/rhythm Gastrointestinal: Soft and benign, Non-distended, No tenderness Musculoskeletal: No tenderness Integumentary: No rashes, No significant lesion Neurological: Normal speech, Normal strength at 5/5 x4 extr, Cranial nerves 3-12 intact (mild L ptosis (chronic)), Normal affect - Studies Laboratory Data (last 24 hrs) 12/26/21 11:20: Sodium 139, Potassium 3.8, BUN 25 H, Creatinine 1.08, Glucose 112 H 12/26/21 11:20: WBC 4.2 L, Hgb 14.7, Hct 44.5, Plt Count 119 L Assessment and Plan - Advance Directives Does patient have a Living Will: Yes Does patient have a Durable POA for Healthcare: No Physician Review Additional Text: Problem List acute CVA HTN h/o rheumatoid arthritis L ptosis s/p corneal transplant pt with balance issues, generalized weakness, slow to answer/move CT noted 2.9 cm lesion in left basal ganglia/caudate/left internal capsule, with mild compression of left ventricle start aspirin/statin bedside swallow first PT/ST consult neuro consult MRI stroke protocol echo, carotid pt does not smoke allow for permissive HTN VTE: lovenox Code: DNR Dispo: HH vs rehab, PT to eval Time Spent Managing Pts Care (In Minutes): 75
--- NOTE | 2021-12-26 16:05 | RAD REPORT ---
EXAM DESCRIPTION: - CP - 12/26/2021 3:43 pm CLINICAL HISTORY: acute CVA COMPARISON: No comparisons TECHNIQUE: Real-time sonographic evaluation of both carotid systems was performed. Doppler interroga tion was performed with waveform tracing bilaterally. FINDINGS: Normal high resistance waveforms are noted in both external carotid arteries. The common c arotid arteries and internal carotid arteries show normal low resistance waveforms. Hard plaque at the right carotid bulb. Mixed soft and hard plaque at the left carotid bulb. Peak syst olic and end diastolic velocity values and the ICA/CCA ratios are in the non-hemodynamically signific ant range. Antegrade flow seen in both vertebral arteries. IMPRESSION: Mild atherosclerotic changes at the carotid bulbs. No evidence of a hemodynamically significant stenosis.
[2021-12-26] MEDS: NA CHLORIDE 0.9% 1,000 ML IV SCH (18:26)
[2021-12-26] MEDS: ENOXAPARIN 40 MG/0.4 ML SQ SCH (18:26)
[2021-12-26 18:33] VITALS: BMI 23.8
[2021-12-26] MEDS: ATORVASTATIN 40 MG TAB PO SCH (20:20)
--- NOTE | 2021-12-26 22:07 | RAD REPORT ---
EXAM DESCRIPTION: MRI - Brain W/Wo Cont - 12/26/2021 9:55 pm CLINICAL HISTORY: acute/subacute stroke COMPARISON: MRA Head Wo Cont dated 12/26/2021; Head Brain Wo Cont dated 12/26/2021 TECHNIQUE: Sagittal T1-weighted images were obtained along with PD/heavily T2-weighted and T2-FLAIR images. Axial DWI and ADC mapping sequences were also obtained along with coronal heavily T2-weighted images were obtained. Post contrast enhanced images were obtained. FINDINGS: Moderate sized 2.9 by 2.1 cm left basal ganglia and park radiata infarct. This has match ing low signal on the ADC map. Background of mild to moderate chronic small vessel ischemic changes. No mass effect or midline shift. No evidence of acute intracranial hemorrhage. No hydrocephalus. Angelita sly normal flow voids identified. No mastoid effusion.Paranasal sinuses are clear. IMPRESSION: Moderate sized left basal ganglia and park radiata acute infarct.
--- NOTE | 2021-12-26 22:08 | RAD REPORT ---
EXAM DESCRIPTION: MRI - MRA Head Wo Cont - 12/26/2021 9:54 pm CLINICAL HISTORY: acute/subacute stroke CVA COMPARISON: No comparisons FINDINGS: 3D noncontrast gaff-jf-ltyyli MR angiography of the [place] was performed. No aneurysm, flow-limiting stenosis or vascular malformation is seen. Forward flow seen in codominant vertebral arteries. The visualized dural venous sinuses appear patent. Absent versus hypoplastic right A1 segment. Mildly dominant right vertebral artery. Dominant left A1 segment. IMPRESSION: No significant flow abnormality of the [place] is identified.
--- NOTE | 2021-12-26 22:09 | RAD REPORT ---
EXAM DESCRIPTION: MRI - MRA Neck W/Wo Cont - 12/26/2021 9:55 pm CLINICAL HISTORY: acute/subacute stroke COMPARISON: No comparisons FINDINGS: Contrast enhance 2D [id number] MR angiography of the neck vessels was performed. The common carotid arteries, internal carotid arteries, external carotid arteries, and vertebral gregory emi are widely patent bilaterally. IMPRESSION: No flow limiting stenosis within the neck.
[2021-12-27 04:55] LABS: Absolute Lymphocytes (CBC) 0.9 K/uL (0.7-4.9); Hematocrit 39.4 % (39.6-49.0); Lymphocytes % 25.6 % (15.3-44.8); MCV 93.5 fL (80-100); MPV 8.2 fL (7.6-11.3); RBC Red Blood Cell Count 4.21 M/uL (4.33-5.43)
[2021-12-27 05:15] LABS: Albumin 2.7 g/dL (3.4-5.0); Bilirubin Total 1.2 mg/dL (0.2-1.0); Magnesium 1.9 mg/dL (1.8-2.4); Potassium 3.4 mmol/L (3.5-5.1); Protein, Total 5.8 g/dL (6.4-8.2)
[2021-12-27] MEDS: NA CHLORIDE 0.9% 1,000 ML IV SCH ×2 (05:20→08:41)
--- NOTE | 2021-12-27 06:25 | P.PN ---
Date of Service: 12/27/21 Subjective: slight confusion of events in last few days feels ok, no numbness/tingling reports some urinary incontince yesterday and 3 days ago, none this morning ROS: 10 point ROS as noted above, otherwise negative Physical exam GEN: Alert, orientedx3, NAD HEENT: mild L ptosis CV: Regular rate and rhythm, no edema Pulm: Non-labored respirations on room air ABD: Soft, nontender, nondistended Integumentary: No rashes Neuro: Normal speech, Normal strength at 5/5 x4 extr, Cranial nerves 3-12 intact (mild L ptosis (chronic)), Normal affect Problem List acute CVA - L basal ganglia HTN h/o rheumatoid arthritis L ptosis s/p corneal transplant alcohol dependence pt with balance issues, generalized weakness, slow to answer/move over last few days CT noted 2.9 cm lesion in left basal ganglia/caudate/left internal capsule, with mild compression of left ventricle MRI: 2.9 cm CVA in left basal ganglia/caudate MRA negative carotid dopplers negative echo pending continue aspirin/statin folic acid tolering PO without issue PT consulted, recommend rehab for ataxic gait patient lives alone and without family support nearby; would benefit from aggressive PT neurology consulted allow for permissive HTN drinks ~2 shots whiskey / day, denies any h/o alcohol withdrawal. monitor closely VTE: lovenox Code: DNR Dispo: rehab consult Time Spent Managing Pts Care (In Minutes): 35
[2021-12-27] MEDS ORDERED: PNEUMOCOCCAL VACCINE 0.5 ML IMVAC ONE (08:00)
[2021-12-27] MEDS: ENOXAPARIN 40 MG/0.4 ML SQ SCH (08:42)
[2021-12-27] MEDS ORDERED: POTASSIUM CL SA 10 MEQ TAB PO ONE (09:00)
[2021-12-27] MEDS: ATORVASTATIN 40 MG TAB PO SCH (20:34)
[2021-12-27] MEDS ORDERED: carvediloL 12.5 MG TAB PO SCH (21:00)
--- NOTE | 2021-12-27 23:12 | CON ---
Reason For Consultation: Consultation called because of stroke. History Of Present Illness: Mr. Sanders is a 81-year-old right-handed patient with hypertens ion, alcohol and tobacco user who comes to [facility] with about 2 weeks of worsening right- sided weakness, loss of balance, and difficulty getting his thoughts and words together. He apparent ly fell at home and could not get up. He had difficulty moving around and lives alone, but eventuall y a sister came and he was eventually admitted to [place] stand-alone emergency area and his imaging re portedly showed no acute findings and that was a CT scan. However, as he failed to thrive and became more weak and did not speak in sets, was reportedly speaking gibberish, he was brought back to the [facility]. He had head CT scan that identified a 2.9 cm low-density area in the left basal ganglia shaista ng with the left internal capsule and left caudate, which appeared to be subacute in terms of stroke age. MRI of the brain confirmed the presence of acute 2.9 x 2.1 cm left basal ganglia and park rad iata moderate-size acute stroke. MRA of his head showed no abnormalities in the the [place]. N lakisha MRA showed no stenosis in the neck vessels. His carotid artery ultrasound showed lot of scleroti c changes in the carotid bulb without evidence of hemodynamically significant stenosis. He was not t aking aspirin or Plavix and was placed in the emergency room on a regimen of aspirin, folic acid, and statin along with his antihypertensive medications. In addition, he was given thiamine 100 mg daily . At the time of his evaluation in the emergency room, his NIH Stroke Scale was 5 for motor and sens ory deficits along with difficulty with communication. He has been evaluated by physical therapist a nd was able to ambulate 250 feet with 2 wheeled walker with contact guard assistance. He did keep an oxygen saturation of 98% on room air. Past Medical History: As noted. Rheumatoid arthritis. Allergies: SULFA DRUGS. Family History: Not contributory. Review of Systems: He denies recent fevers, chills, nausea, vomiting, myalgias, arthralgias, rash, headache, weight posey ge, or active psychiatric issues. Physical Examination: Vital Signs: Blood pressure 146/67, pulse 86, respiratory rate 16, temperature 97.9, oxygen saturati on 98% on room air. Weight 201 pounds, height 65, BMI 33.8. General: Mr. Sanders is resting comfortably in no acute distress. HEENT: He is normocephalic, atraumatic. Sclerae anicteric. Oropharynx pink and moist. Neck: Supple. Chest: Clear. Heart: Regular. Extremities: No clubbing, cyanosis, or edema. He does have some bruising on the left forearm and ri ght forearm. Neurologic: He has subtle right upper and lower extremity weakness and decreased sensation. Right fa ce shows a slight decrease in the right nasolabial fold with good excursions. Again, sensory examina tion is slight decreased to light touch and temperature on the right compared to the left upper and l ower extremities. For gait, he has good stance with right arm swing, subtle tendency to turn and dri ft to the right side. Reflexes are depressed. Assessment: Mr. Sanders is a 81-year-old patient with multiple stroke risk factors who had subacute st roke at the time of evaluation. He does not have large vessel ischemic disease, this is likely small vessel disease related to his hypertension. He should have a lipid panel and in the past when this was done, LDL was 59 and HDL 39. Liver function studies are unremarkable. Basic metabolic is panel essentially unremarkable. Blood sugars 90-112. At this state, the patient is doing very well with h is physical therapy, which is on evaluation, but he may benefit from aggressive outpatient physical t herapy to improve his balance, gait, coordination, and strength. He should continue with aspirin 81 mg daily, Plavix 75 mg daily, and his LDL cholesterol is already 59, but may be on a low-dose statin as well and folic acid 1 mg daily. After his discharge, he should follow up with Dr. Severino in clinic 1 mo nt later. RAMSES/TIRSO Voice ID: [id number] Report ID: [id number]
[2021-12-28 05:02] LABS: Potassium 3.5 mmol/L (3.5-5.1)
[2021-12-28] MEDS ORDERED: carvediloL 6.25 MG TAB PO SCH (08:00)
--- NOTE | 2021-12-28 08:02 | ECHO ---
HEIGHT: 6 ft 5 in WEIGHT: 201 lb 0 oz DATE OF STUDY: 12/27/[address]: Fredy Schaffer MD 2-DIMENSIONAL: YES M.MODE: YES DOPPLER: YES COLOR FLOW: YES TDS: PORTABLE: YES DEFINITY: BUBBLE STUDY: DIAGNOSIS: CEREBRAL VASCULAR ACCIDENT CARDIAC HISTORY: CATHERIZATION: SURGERY: PROSTHETIC VALVE: PACEMAKER: MEASUREMENTS (cm) DIASTOLIC (NORMALS) SYSTOLIC (NORMALS) IVSd 1.2 (0.6-1.2) LA Diam 4.0 (1.9-4.0) LVEF 59% LVIDd 4.5 (3.5-5.7) LVIDs 2.9 (2.0-3.5) %FS 31% LVPWd 1.0 (0.6-1.2) Ao Diam 3.0 (2.0-3.7) 2 DIMENSIONAL ASSESSMENT: RIGHT ATRIUM: NORMAL LEFT ATRIUM: ENLARGED RIGHT VENTRICLE: NORMAL LEFT VENTRICLE: MILD LEFT VENTRICULAR HYPERTROPHY TRICUSPID VALVE: NORMAL MITRAL VALVE: NORMAL PULMONIC VALVE: NORMAL AORTIC VALVE: NORMAL PERICARDIAL EFFUSION: NONE AORTIC ROOT: NORMAL LEFT VENTRICULAR WALL MOTION: NORMAL DOPPLER/COLOR FLOW: MILD TRICUSPID REGURGITATION. MILD MITRAL REGURGITATION. MILD PULMONIC INSUFFICIENCY. COMMENTS: NORMAL LEFT VENTRICULAR EJECTION FRACTION 55-60%. NORMAL WALL MOTION. LEFT ATRIAL ENLARGEMENT. MILD CONCENTRIC LEFT VENTRICULAR HYPERTROPHY. MILD TRICUSPID REGURGITATION, MILD PULMONIC INSUFFICIENCY. MILD MITRAL REGURGITATION. TECHNOLOGIST: CORKY CUMMINS
[2021-12-28] MEDS: ENOXAPARIN 40 MG/0.4 ML SQ SCH (08:49)
[2021-12-28] MEDS ORDERED: POTASSIUM CL SA 10 MEQ TAB PO ONE (09:00)
[2021-12-28] MEDS ORDERED: CLOPIDOGREL 75 MG TABLET PO SCH (09:00)
[2021-12-28] MEDS ORDERED: ASPIRIN EC 81 MG TAB PO SCH (09:00)
[2021-12-28] MEDS ORDERED: THIAMINE HCL 100 MG TABLET PO SCH (09:00)
[2021-12-28] MEDS ORDERED: FOLIC ACID 1 MG TABLET PO SCH (09:00)
[2021-12-28 10:07] VITALS: O2SAT 98
[2021-12-28 13:49] VITALS: BP 146/72; TEMP 98.5
--- NOTE | 2021-12-28 13:56 | P.DS ---
Admission Date: 12/27/21 Discharge Date: 12/28/21 Disposition: TRANSFER TO INPATIENT REHAB Reason for Admission: acute CVA Consultations: Neurology - [place] Brief History of Present Illness: 81yo, PMH: HTN, RA Presents to ED due to generalized weakness - fell and couldn't get up. Has felt weak, slow to move/respond over the last ~1 week. He had a very mild cough initially. He was taken to [place] 2 days ago, had negative workup / negative CT according to family. His confusion / altered mental status seemed to worsen, and he got weaker. Sister is visiting from out of town and say she intermittently had periods where he seemed to be "talking gibberish and even texted gibberish". He also reports feeling more unsteady on his feet. Patient denies fever/chills, no shortness of breath, no nausea/vomiting, no diarrhea, no change in urinary habits, +decreased PO intake. Denies smoking history, no CVA history. Lives alone and is typically very independent. In the ED, labs were unremarkable, CT noted 2.9cm left lesion in basal ganglia. Hospital Course: Problem List acute CVA - L basal ganglia HTN h/o rheumatoid arthritis L ptosis s/p corneal transplant alcohol dependence Patient underwent MRI which confirmed acute/subacute CVA. He was treated with aspirin, plavix, statin, folic acid, and thiamine. He was evaluated by PT and found to have an unsteady gait. Recommended aggressive PT and patient was agreeable to inpatient rehab. He was discharged to continue treatment in rehab prior to discharge home. Vital Signs/Physical Exam: Temp Pulse Resp BP Pulse Ox 98.5 F 59 16 146/72 H 100 12/28/21 12:00 12/28/21 12:00 12/28/21 12:00 12/28/21 12:00 12/28/21 12:00 Physical exam GEN: Alert, orientedx3, NAD HEENT: mild L ptosis CV: Regular rate and rhythm, no edema Pulm: Non-labored respirations on room air ABD: Soft, nontender, nondistended Integumentary: No rashes Neuro: Normal speech, Normal strength at 5/5 x4 extr with decreased R foot clearance and unsteady gait Laboratory Data at Discharge: WBC 3.7 K/uL (4.3-10.9) L 06/23/22 03:41 Hgb 13.6 g/dL (13.6-17.9) 12/27/21 03:41 Hct 39.4 % (39.6-49.0) L 12/27/21 03:41 Plt Count 100 K/uL (152-406) L 12/27/21 03:41 Sodium 138 mmol/L (136-145) 12/28/21 04:04 Potassium 3.5 mmol/L (3.5-5.1) 12/28/21 04:04 BUN 10 mg/dL (7-18) 12/28/21 04:04 Creatinine 0.86 mg/dL (0.55-1.3) 12/28/21 04:04 Glucose 109 mg/dL (74-106) H 12/28/21 04:04 Magnesium 2.0 mg/dL (1.8-2.4) 12/28/21 04:04 Total Bilirubin 1.2 mg/dL (0.2-1.0) H 12/27/21 03:41 AST 35 U/L (15-37) 12/27/21 03:41 ALT 15 U/L (12-78) 12/27/21 03:41 Alkaline Phosphatase 63 U/L (45-117) 12/27/21 03:41 Triglycerides 75 mg/dL (<150) 12/27/21 03:41 Cholesterol 113 mg/dL (<200) 12/27/21 03:41 HDL Cholesterol 39 mg/dL (40-60) L 12/27/21 03:41 Cholesterol/HDL Ratio 2.90 12/27/21 03:41 Home Medications: Acetaminophen 500 mg PO Q4HP PRN 12/28/21 Aspirin [Aspirin EC] 81 mg PO DAILY 12/28/21 Atorvastatin Calcium [Lipitor*] 20 mg PO BEDTIME tab 12/28/21 Clopidogrel Bisulfate [Plavix*] 75 mg PO DAILY tablet 12/28/21 Ondansetron [Zofran] 4 mg PO Q6H PRN 12/28/21 Thiamine HCl [Vitamin B-1*] 100 mg PO DAILY tablet 12/28/21 carvediloL [Carvedilol] 6.25 mg PO BID 12/28/21 Physician Discharge Instructions: Complete Gold Sheet for Stroke Complete Patient Satisfaction form for Stroke Followup: Josh Mckeon MD [Primary Care Provider] - (Call to schedule appointment.) Time spent managing pt's care (in minutes): 45
[2021-12-28] MEDS ORDERED: ATORVASTATIN 20 MG TAB PO SCH (21:00)
[2021-12-29] MEDS ORDERED: APIXABAN 2.5 MG TABLET PO SCH (21:00)
== END 2021-12-28 14:40 | DRG 65 ==
LOC: ER 10:19 → ERHOLD 15:06 → INTOOBSV 15:06 → OBSVTOIN 15:06 → 2ND 16:25 → OBSVTOIN 12-27 15:00
PROVIDERS: ADMIT Hospitalist; ATTEND Hospitalist
DX: I63.9 Cerebral infarction, unspecified (principal); G81.91 Hemiplegia, unspecified affecting right dominant side; I10 Essential (primary) hypertension; R26.0 Ataxic gait; R47.89 Other speech disturbances; R29.705 NIHSS score 5; M06.9 Rheumatoid arthritis, unspecified; F10.20 Alcohol dependence, uncomplicated; Z94.7 Corneal transplant status; Z87.891 Personal history of nicotine dependence; Z23 Encounter for immunization; Z20.822 Contact with and (suspected) exposure to COVID-19; Z88.2 Allergy status to sulfonamides
CPT/HCPCS: 36415; 70450; 70544; 70549; 70553; 71045; 80048; 80053; 80061; 83735; 84132; 84145; 85025; 86308; 87040; 87205; 90471; 90732; 92610; 93306; 93880; 94760; 96374; 97116; 97161; 97530; 99284; A9577; G0378; J1650; J7030; U0003

== ENCOUNTER 2021-12-28 14:51 | Inpatient (IN) | payer OTHER ==
--- NOTE | 2021-12-28 13:30 | R.PREADM ---
PRE-ADMISSION SCREENING FORM SCREENING DATE AND TIME 12/27/2021 15:53 (CDT) ANTICIPATED REHAB ADMISSION DATE 12/29/2021 REFERRING FACILITY [facility] REFERRAL DATE AND TIME 12/27/2021 15:54 (CDT) REFERRAL ROOM# 201 ACUTE ADMIT DATE 12/26/2021 Previous Rehabilitation(s): No. 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 Vicetne Severino M.D. MR# [id number] NAME MARÍA SIMPSON ADDRESS [address] [facility] PHONE [facility] [id number] DATE OF 1940 AGE 81 SSN# [id number] GENDER male MARITAL STATUS Single (Never ) unknown race ADMIT FROM 02 - [facility] PRE-HOSPITAL LIVING SETTING 01 - Home (private home/apt. board/care, assisted living, shelter, transitional living) HOME TYPE AND DETAILS Type of home: single family house # of levels in the residence: 2 # of steps within the residence: 10 # of steps to enter the residence: 0 PRE-HOSPITAL LIVING WITH Alone FAMILY SUPPORT No PHONE PRIMARY FAMILY CONTACT ON ADM.? no IS PRIMARY FAMILY CONTACT AUTH. REP.? no PHONE 1ST CONTACT ON ADM. no IS 1ST CONTACT AUTH. REP.? no PHONE 2ND CONTACT ON ADM.? no PATIENT EMPLOYMENT STATUS Retired (for age) PATIENT EMPLOYER No Employer PAYOR INFORMATION: 1ST PAYOR NAME Medicare 1ST PAYOR PHONE 1ST PAYOR INJURY/ILLNESS DUE TO ACCIDENT? No ANOTHER CONSTITUTION PARTY RESPONSIBLE? No PRIMARY REHAB/ACUTE DIAGNOSIS: Cerebral infarction, unspecified (I63.9) ONSET DATE 12/26/2021 REHAB IMPAIRMENT CATEGORY (OMAIRA): 01 Stroke (STR) MEETS 60% rule AFFECTED EXTREMITIES: RLE, and RUE PRIMARY DIAGNOSIS-RELATED SURGERIES: none COMORBID REHAB/ACUTE DIAGNOSES: - Non-Tiered Alcohol dependence (F10.2) - N/A Essential (primary) hypertension (I10) INTERVENTIONS: - Permissive Hypertension Assess/ Monitor patient B/P and treat with prescribed medications Implement healthy diet Increase physical activity Limit patient consumption of alcohol Administer medications indicated by physician and monitor for effectiveness. - CVA Provide aggressive PT, OT, and Speech therapy to improve pt functionality Regularly assess Neuro status - Pain Monitor for headaches Anticipate the need for pain medication for optimal pain managment Assess/Monitor pt pain and treat with prescribed pain medications - Weakness Assist pt with all OOB activity Maintain pt safety Aggressive PT - Altered Mental Status Maintain pt safety Frequent Neuro checks RISK FOR COMPLICATIONS: - DVT Active and Passive ROM exercises Assist patient with frequent position changes Elevate BLE - Skin Breakdown Encourage ambulation as tolerated Repositioning q 2 hours Use of pillows or foam wedges while in bed - Pain Assess pt for pain and Administer prescribed pain medication as needed Anticipate the need for pain medication for optimal pain managment Assist patient with frequent position changes at least every 2 hours Educate patient on relaxation and deep breathing techniques - Falls Assess for alcohol withdrawal Assess for medication side effects Maintain call light within patient reach for easy access to nursing assistance Provide assistance getting out of bed and with ambulation Provide assistive devices - Seizure Administer prescribed medications Identify risk factors Provide safety measures - Stroke Assess/ Monitor and maintain patient pain level Assess/ Monitor patient blood pressure SUMMARY OF ACUTE HOSPITALIZATION: On 12/26/2021 Pt. presented to [facility] with sudden onset of right-side weakness. Pt. is a 81 yo male of unknown race. On 12/26/2021 he was admitted to [facility] with diagnosis Cerebral infarction, unspecifie d (I63.9). His impairment category is Stroke 01 - Right Body (Left Brain) (01.2). Pre-morbidly, Pt. was independent/mod-I in Locomotion and Self-Care; and he had good Endurance, Pan ce, Safety Awareness, Transfers Control, Sphincter Control, and Communication. Currently, he has deficits of Locomotion, Safety Awareness, Balance, Transfers Control, Sphincter Con trol, Self-Care, Endurance, and Communication. Pt. is now referred to [facility] for acute in-patient rehabilitation in order to maximize patient's functional independence in activities of daily living, strength, ROM, and mobi lity. Patient has realistic goal of being discharged at assistance level 6-Ligia to reside at Home with Pt self. Pt is 81 yo male who presented to the ED with generalized weakness and recent fall. Report from famil y stating pt communication has been gibberishboth verbal and written. Head CT shows 2.9 cm lesi on in L BG/caudate/L Internal capsules with mild compression of the L ventricle. Pt admitted with Acu te CVA and HTN. Pt has PHM of HTN, former smoker, rheumatoid arthritis, and alcohol dependence.Per PT, pt is able to perform bed mobility and transfers with SBA. Pt ft using FWW with CGA for safety but exhibits unsteady gait when ambulation without AD d/t reduced right foot clearance. Pr ior to onset pt lived alone and reports functioning independently and ambulating without AD. Dueto th e decline in the patients condition he is not currently safe to remain in him current living arran gement due to reductions in balance, strength, endurance,and an inability to independently perform th e necessary activities of daily living and self-care required. Pt is at risk for skin breakdown, DVT, pain,falls, bleeding, and stroke. Our goal is for the patient to become stronger in order for him to safely return home and live independently. Patient would most directly benefit from aggressive 3 clay rs of daily therapy split between physical therapy and occupational therapy and Speech therapy if war ranted, in the acute inpatient rehab setting. He is medically stable with relatively stable labs. He will require 24 hour nursing, doctor supervision and oversight while receiving active and ongoing intensive (PT, OT, ST) due to his current medical condition andPHM. The patient is reasonably expect ed to participate in 3 hours of therapy aday/15 hours per week and receive care with an intensive int erdisciplinary approach. COVID-19 screening performed; Patient denies new onset of fever,cough, diffi culty breathing, sore throat, body aches and non-allergy nasal congestion in the past 24 hours. Patie nt denies travel outside of [place] in the past 14 days. Patient denies any contact with someone who schafer s a confirmed diagnosis of or is under investigation for COVID-19 in the past 14 days. 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 MEDICATION ALLERGIES: No Known Drug Allergies (NKDA) ENVIRONMENTAL ALLERGIES: - Substance Allergies None Known - Other Allergies None Known CODE STATUS: Full code WEIGHT/HEIGHT/BMI: WEIGHT 201 lbs HEIGHT 6' 5" BMI 23.8 DIET: - Diet Type Regular - Diet - Solid Texture Regular - Diet - Liquid Texture Regular - Tube Feed N/A None REVIEW OF SYSTEMS: - Gen Alert and awake Lying in bed No apparent distress Oriented to: person, time, and place - Vital Signs Temperature: 97.9 F SBP/DBP: 146/67 Pulse: 66 Resp: 18 Vital signs stable, afebrile - CVS RRR VITAL SIGNS Temperature: 97.9 F SBP/DBP: 146/67 Pulse: 66 Resp: 18 Vital signs stable, afebrile MEDICATIONS/TREATMENT: Other- See attached MAR (Medication Administration Record). CURRENT SPHINCTER CONTROL: Pre-hospital bladder status: unspecified # of bladder accidents in the last 7 days prior to screenin Pre-hospital bowel status: unspecified # of bowel accidents in the last 7 days prior to screenin Last Bowel Movement Date: 12/27/2021 CURRENT LOCOMOTION STATUS: distance walked 250 feet DETAILED CURRENT FUNCTIONAL STATUS: - Bladder accident frequency: 7-Ind - No accidents in the past 7 days - Bowel accident frequency: 7-Ind - No accidents in the past 7 days - Walking score based on distance walked: 0(N/A) score based on distance walked: 3(>=150ft) - Wheelchair score based on distance traveled: 0(N/A) QI SCORES: - Self-Care A. Eating 05-Setup or clean-up assistance B. Oral hygiene 05-Setup or clean-up assistance C. Toileting hygiene 04-Supervision or touching assistance E. Shower/bathe self 04-Supervision or touching assistance F. Upper body dressing 05-Setup or clean-up assistance G. Lower body dressing 04-Supervision or touching assistance H. Putting on/taking off footwear 04-Supervision or touching assistance - Mobility A. Roll left and right 04-Supervision or touching assistance B. Sit to lying 04-Supervision or touching assistance C. Lying to sitting on side of bed 04-Supervision or touching assistance D. Sit to stand 04-Supervision or touching assistance E. Chair/[id number]-krlfv transfer 04-Supervision or touching assistance F. Toilet transfer 04-Supervision or touching assistance G. Car transfer 88-Not attempted due to medical condition or safety concerns I. Walk 10 feet 04-Supervision or touching assistance J. Walk 50 feet with two turns 04-Supervision or touching assistance K. Walk 150 feet 04-Supervision or touching assistance L. Walking 10 feet on uneven surfaces 88-Not attempted due to medical condition or safety concerns M. 1 step (curb) 88-Not attempted due to medical condition or safety concerns N. 4 steps 88-Not attempted due to medical condition or safety concerns O. 12 steps 88-Not attempted due to medical condition or safety concerns P. Picking up object 04-Supervision or touching assistance R. Wheel 50 feet with two turns 09-Not applicable S. Wheel 150 feet 09-Not applicable - Bladder and Bowel Bladder continence 2-Incontinent less than daily Bowel continence 0-Always continent - Endurance Fair - Balance Fair - Safety Awareness Fair CURRENT FUNC. DEFICITS: Self-Care, Mobility, Endurance, Balance, and Safety Awareness HISTORY OF FALLS. HAS THE PATIENT HAD TWO OR MORE FALLS IN THE PAST YEAR OR ANY FALL WITH INJURY IN T HE PAST YEAR?: Yes PRIOR SURGERY. DID THE PATIENT HAVE MAJOR SURGERY DURING THE 100 DAYS PRIOR TO ADMISSION?: No THERAPY NOTES FROM ACUTE CARE: Attached. SPECIAL NEEDS: - Safety Concerns Skin breakdown and Fall precautions needed due to skin breakdown risk, Poor balance, Risk of injury, and Fall history - Substance Abuse Alcohol - unknown drinks per day - Fall Precautions Due to poor balance PRECAUTIONS: - Fall Precaution Bed alarm TABS alarm Wheel chair alarm - DVT Risk due to restricted mobility and age - Incontinence Bladder Incontinence - Skin Breakdown Risk due to restricted mobility and age PATIENT NEEDS ACTIVE AND ONGOING THERAPEUTIC INTERVENTION OF MULTIPLE THERAPY DISCIPLINES, INCLUDING: - Dietary and Nutrition Adequate Nutrition. Nutritional Education. Nutritional Supplements. - Occupational Therapy Cognitive Retraining. Patient needs Occupational Therapy for a daily minimum of 1.5 hours at least 5 out of 7 days, to improve Activities of Daily Living, including: Eating, Grooming, Bathing, Dressing, Toileting, Toilet Transfers, Community Reintegration, Higher functional activities, Adaptive Equipme nt, Splinting, Household Tasks, and Other activities as determined. Visual Perceptual Training. - Speech Therapy Cognitive Training. Expressive Language Skills. Memory Strategies. Patient needs Speech Therapy for a daily minimum of 0.5 hours at least 5 out of 7 days, to improve: Swallowing, Cognition, Language Ski lls, and Compensatory Strategies. Receptive Language Skills. Speech Intelligibility Training. - Physical Therapy Patient needs Physical Therapy for a daily minimum of 1.5 hours at least 5 out of 7 days, to improve: Mobility, Strengthening, Transfers, Stretching, ROM, Endurance, Ability to manage stairs, Gait, and Balance. PATIENT NEEDS CLOSE MEDICAL SUPERVISION BY A REHABILITATION PHYSICIAN FOR: Coordination of Treatment Team Medical and Co-Morbidity Management Bowel and Bladder Management Pain Management PATIENT REQUIRES 24X7 REHAB NURSING FOR MEDICAL AND FUNCTIONAL MGT. OF THE FOLLOWING DEFICITS: Patient requires 24x7 Rehabilitation Nursing for: Pain Issues, Identifying and preventing risk factor s, Monitoring and reporting current medical conditions, Assisting with ambulation and transfer, Radha ting with all ADL-s, Teaching patients about disease process and medications, Family teaching, Provid ing safe environment, Bowel and Bladder Issues, Skin Integrity, and Medication Management PATIENT REQUIRES INTENSIVE, COORDINATED INTERDISCIPLINARY APPROACH TO REHAB: Patient needs Dietary and Nutrition Services for: Adequate Nutrition, Nutritional Supplements, and Nu tritional Education Patient needs Pier Hand Helper and/or Case Management for: Discharge Planning, Arranging Home Equipmen t or Services, and Family Interventions PATIENT REHAB POTENTIAL: Luisa SIMPSON is able and expected to receive 3 hours of individualized therapy daily on at least 5 of cortez ry 7 days Luisa ALVARADOs prognosis for significant practical improvement within a reasonable period of time appears Good Expected level of measurable improvement will be of a practical value to Luisa SIMPSON's functional capaci ty or adaptations to impairments Has a viable Discharge Plan Medically appropriate; condition is sufficiently stable to participate in intensive rehab program DISCHARGE PLAN: - Estimated Length of Stay (days) 17. - Consensus on plan Discharge plan has been discussed with primary caregiver. Patient/Family is in agreement with the melinda n. Primary caregiver is in agreement with the plan. - Patient/Family Goals Return home independently. - Planned Living Setting Upon Discharge Home, to live alone. Transitional Living. Primary caregiver: Pt self. RECOMMENDED CARE LEVEL: IRF RECOMMENDATION DETAILS: Recommended Admission to Comprehensive Rehabilitation Program to Increase Functional [place] SCREENER'S COMPLETENESS CONFIRMATION: - Screening Confirmation The patient data collection on this preadmission screening form is finished PHYSICIANS REVIEW AND ADMISSION DETERMINATION Admit - Based on my review of the Pre-Admission Screening results, in my medical judgment and experie nce, I concur with the findings and recommend admission to [facility], as this patient requires an IRF level of care. SIGNATURE PANEL: Clinical Liaison - [electronically] signed by Dr. Vicente Severino M.D. on 12/28/2021 at 13:29 (CDT) Physician Reviewer - [electronically] signed by Dr. Vicente Severino M.D. on 12/28/2021 at 13:29 (CDT )
--- OUTSIDE RECORDS SUMMARY | 2021-12-28 14:54 | XMS REPORT | Continuity of Care Document ---
:[address] [facility] t Address [address] [place] [address] [address] [place] [address] Care Team Providers Name Role Phone MORRIS HOLGUIN Attending Clinician Unavailable Richardson HOLGUIN Attending Clinician Unavailable Jaymie Attending Clinician Unavailable Ezio LILLY P Attending Clinician Tabitha Borges MD Attending Clinician MORRIS HOLGUIN Admitting Clinician Unavailable Jaymie Admitting Clinician Unavailable Payers Payer Name Policy Type Policy Number Effective Date Expiration Date S yoseph MEDICARE PART A [id number] \T\ B - MEDICARE OPEN ACCESS PLUS [id number] - CIGNA HMO/QPOS/SELECT - [id number] 2013 AETNA 00:00:00 MEDICARE A B [id number] 2007 00:00:00 CIGNA [id number] 2016 HMO/POS/OPEN 00:00:00 ACCESS MEDICARE B-[place]: [id number] 2007 [employer] 00:00:00 AETNA - MEBS - [id number] 2003 CHOICE - NAP (POS 00:00:00 II) Problems Condition Condition Condition Status Onset Resolution Last Treating Co mments Source Name Details Category Date Date Treatment Clinician Date Burn Burn Disease Active [facility] 8-18 College 00:00: of 00 Medicin e Back pain Back pain Disease Active [employer] [facility] 4-07 [facility] 00:00: of 00 Medicin e 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[facility] 2-10 College use use 00:00: of 00 Medicin e High risk High risk Disease Active 2013-07 [employer] medication medication 1-06 Co llege use use 00:00: of 00 Medicin e Psoriatic Psoriatic Disease Active [facility] arthritis arthritis -13 Juan [facility]ge (HCCode) (HCCode) 00:00: of 00 Medicin e Allergies, Adverse Reactions, Alerts Allergy Allergy Status Severity Reaction(s) Onset Inactive Treating Comm ents Source Name Type Date Date Clinician SULFA Allergy Active [facility] Sulfa Propensi Active Hives [facility] Antibiot ty to 6-13 College ics adverse 00:00: of reaction 00 Medicin s to e drug Social History Social Habit Start Date Stop Date Quantity Comments Source Sex Assigned At [facility] [employer] Tobacco use and 2020-04-12 2020-04-12 Never used [facility] [employer] exposure 00:00:00 00:00:00 of Medicine Alcohol intake 2020-04-12 2020-04-12 Ex-drinker [facility] Col [facility] 00:00:00 00:00:00 (finding) of Medicine Alcohol Comment 2018-11-03 2018-11-03 drinks non [facility] 00:00:00 00:00:00 alcoholic beer of Medicin e Smoking Status Start Date Stop Date Source Former smoker 2020-04-12 00:00:00 2020-04-12 00:00:00 [facility] Medications Ordered Filled Start Stop Current Ordering Indication Dosage Frequency Signature Comments Components Source Medication Medication Date Date Medication? Clinician (SIG) Name Name methotrexat Yes TAKE 4 Michel e 2.5 MG 9-30 TABLETS BY Colle ge tablet 00:00: MOUTH ONCE of 00 A WEEK Medicin e folic acid Yes [id number] 1mg Take 1 Tab Michel (FOLVITE) 1 5-26 by mouth Juan ege MG tablet 00:00: daily. of 00 Medicin e gabapentin Yes [id number] TAKE ONE Michel (NEURONTIN) 5-26 CAPSULE BY Co llege 300 MG 00:00: MOUTH of capsule 00 NIGHTLY Medicin e carvedilol Yes 12.5mg Take 12.5 [facility] (COREG) 8-27 mg by College 12.5 MG 18:03: mouth 2 of tablet 10 times Medicin daily e (with meals). carvedilol Yes 12.5mg Take 12.5 [facility] (COREG) 8-27 mg by College 12.5 MG 18:03: mouth 2 of tablet 10 times Medicin daily e (with meals). gabapentin 2018- Yes [id number] TAKE ONE [facility] (NEURONTIN) 8- CAPSULE BY Co llege 300 MG 00:00: MOUTH of capsule 00 NIGHTLY Medicin e folic acid Yes [id number] 1mg Take 1 Tab [facility] (FOLVITE) 1 03-02 by mouth Juan ege MG tablet 00:00: daily. of 00 Medicin e methotrexat Yes [id number] 10mg Take 4 Michel e 4-30 Tabs by [place] (RHEUMATREX 00:00: mouth of ) 2.5 MG 00 every 7 Medicin tablet days. e folic acid 2019- No [id number] 1mg Take 1 Tab Michel (FOLVITE) 1 -30 - by mouth Col lege MG tablet 00:00: 00:00 daily. of 00 :00 Medicin e gabapentin 2019- No [id number] TAKE ONE Michel (NEURONTIN) -03-02 CAPSULE BY [facility] 300 MG 00:00: 00:00 MOUTH of capsule 00 :00 NIGHTLY Medicin e Vital Signs Vital Name Observation Time Observation Value Comments Source HEIGHT 2020-08-14 11:13:00 195.6 cm WEIGHT 2020-08-14 11:13:00 95.255 kg Systolic blood 2019-03-02 18:03:00 119 mm[Hg] [facility] pressure Medicine Diastolic blood 2019-03-02 18:03:00 74 mm[Hg] [facility] pressure Medicine Heart rate 2019-03-02 18:03:00 65 /min [facility] Body temperature 2019-03-02 18:03:00 36.78 [facility] Respiratory rate 2019-03-02 18:03:00 17 /min [facility] Body height 2019-03-02 18:03:00 194.3 cm [facility] Body weight 2019-03-02 18:03:00 93.078 kg [facility] BMI 2019-03-02 18:03:00 24.65 kg/m2 [facility] Oxygen saturation in 2019-03-02 18:03:00 97 /min [facility] Arterial blood by [facility] Pulse oximetry Procedures Procedure Date / Time Performing Clinician Source Performed COMPREHENSIVE METABOLIC 2019-03-02 18:45:00 Tania Borges [facility] C-REACTIVE PROTEIN 2019-03-02 18:45:00 Tania Borges [facility] CBC W/AUTO DIFF WITH 2019-03-02 18:45:00 Tania Borges [facility] PLATELETS Medicine SEDIMENTATION RATE 2019-03-02 18:45:00 Tania Borges [facility] Plan of Care Planned Activity Planned Date Details Comments Source Future Scheduled Test MEDICARE AWV [code = [facility] MEDICARE AWV] Medicine Future Scheduled Test TETANUS SHOT (ADULT) [facility] [code = TETANUS SHOT Medicin e (ADULT)] Future Scheduled Test FALL SCREEN [code = [facility] FALL SCREEN] Medicine Future Scheduled Test PNEUMOVAX >=65 [facility] (PPSV23) [code = Medicine PNEUMOVAX >=65 (PPSV23)] Future Scheduled Test PREVNAR >= 65 (PCV13) [facility] [code = PREVNAR >= 65 Medici ne (PCV13)] Future Scheduled Test FLU VACCINE > 6 [facility] [employer] [code = FLU Medicine VACCINE > 6 MONTHS] Future Scheduled Test TETANUS SHOT (ADULT) [facility] [code = TETANUS SHOT Medicin e (ADULT)] Future Scheduled Test ZOSTER VACCINE (1 of [facility] of 2) [code = ZOSTER Medicine VACCINE (1 of 2)] Future Scheduled Test FALL SCREEN [code = [facility] FALL SCREEN] Medicine Future Scheduled Test PNEUMOVAX >=65 [facility] (PPSV23) [code = Medicine PNEUMOVAX >=65 (PPSV23)] Future Scheduled Test FLU VACCINE > 6 [facility] [employer] [code = FLU Medicine VACCINE > 6 MONTHS] Encounters Start End Encounter Admission Attending Care Care Encounter Source Date/Time Date/Time Type Type Clinicians Facility Department ID 2021-04-12 Outpatient LAWRENCE HOLGUIN Surgery [id number] [facility] 10:11:00 [facility] 2021-02-14 2021-02-14 Outpatient HILDA HOLGUIN [facility] [id number] [facility] 10:58:59 12:37:14 [facility] [place] ge of Medicin e 2020-08-14 2020-08-14 Outpatient [facility] [id number] [facility] 00:00:00 00:00:00 2020-05-24 2020-05-24 Outpatient Saravanan_R [facility] MMG [id number] [place] 02:29:00 02:29:00 [facility] 2020-04-12 2020-04-12 Office HILDA Holguin [id number] [facility] 10:14:17 10:19:17 Visit Marcell Bai AMBULATOR [id number] College Y 0.2.7.2.686 of [id number] [facility] [place] 300 e 2019-03-02 2019-03-02 Office HILDA Borges [id number] [facility] 12:55:07 14:43:54 Visit Tania Lu AMBULATOR [id number] College Y 0.2.7.2.686 of [id number] Medi nj 370 e 2016-07-18 2016-07-18 Outpatient Saravanan_R MMG MMG [id number] [place] 10:41:00 10:41:00 0615 [facility] Results Test Description Test Time Test Comments Results Result Comments Source SEDIMENTATION RATE [facility]-03-03 10:51:06 Test Item Value Reference Range Interpretation Comme nts ERYTHROCYTE SEDIMENTATION RATE See_Comment Unless Otherwise Indicated, (test code = 4537-7) All Lulu ting Performed At: [facility] [address] [address] Laboratory Di stephany: Yosi Ayon M.D. CLIA Number [id number] [place]. [id number] [Auto mated message] The system which ge nerated this result transmitted ref erence range: 0 - 15 MM/HOUR. The re ference range was not used to interpr et this result as normal/abnormal . [facility] [id number] 09:06:51 Test Item Value Reference Range Interpretation Comments C-REACTIVE PROTEIN See_Comment H Unless (test code = 1988-5) Otherwi se Indicated, All Testing Per formed At: [facility], [address] [facility], [place] [address] Laboratory Dire ctor: Yosi sanabria M.D. CLIA Num berk[place] [id number] [place]. [id number] [Auto mated message] The sy stem which generated this result transmit ayse reference range : <0.5 MG/DL. The refe rence range was not u sed to interpret this result as normal/abnor mal. Lab Interpretation Abnormal (test code = 20744-3) [facility] [id number] 09:05:22 Test Item Value Reference Range Interpretation Comments GLUCOSE (test code = See_Comment [Autom ated message] 2345-7) The system [employer] generated this result transmitted ref erence range: 70 - 99 MG/DL. The reference r joesph was not used to interpret this result as normal/abnor mal. BLOOD UREA NITROGEN See_Comment L [Automa ayse message] (test code = 3091-6) The s tem which generated this result transmitted ref erence range: 8 - 23 M G/DL. The reference r joesph was not used to interpret this result as normal/abnor mal. CREATININE (test code = See_Comment [Au tomated message] 2160-0) The system [employer] generated this result transmitted ref erence range: 0.80 - 1 .40 MG/DL. The refe rence range was not u sed to interpret this result as normal/abnor mal. EGFR AA (test code = See_Comment [Autom ated message] 05515-9) The system [employer] generated this result transmitted ref erence range: >60 ML/MIN/1.73. Th e reference range was not used to int erpret this result as normal/abnormal . EGFR (test code = See_Comment [Automate d message] 26254-5) The system [employer] generated this result transmitted ref erence range: >60 ML/MIN/1.73. Th e reference range was not used to int erpret this result as normal/abnormal . BUN/CREAT RATIO (test See_Comment [Auto mated message] code = 3097-3) The system [employer] generated this result transmitted ref erence range: 6 - 28 R ATIO. The reference r joesph was not used to interpret this result as normal/abnor mal. SODIUM (test code = See_Comment L [Automa ayse message] 2951-2) The system [facility] generated this result transmitted ref erence range: 133 - 14 6 MEQ/L. The refe rence range was not u sed to interpret this result as normal/abnor mal. POTASSIUM (test code = See_Comment [Aut omated message] 2823-3) The system [facility] generated this result transmitted ref erence range: 3.5 - 5. 4 MEQ/L. The refe rence range was not u sed to interpret this result as normal/abnor mal. CHLORIDE (test code = See_Comment L [Auto mated message] 3285-0) The system [facility] generated this result transmitted ref erence range: 95 - 107 MEQ/L. The reference r joesph was not used to interpret this result as normal/abnor mal. CO2 (test code = See_Comment [Automated message] 1963-8) The system [employer] generated this result transmitted ref erence range: 19 - 31 MEQ/L. The reference r joesph was not used to interpret this result as normal/abnor mal. CALCIUM (test code = See_Comment [Autom ated message] 01858-6) The system [facility] [employer] generated this result transmitted ref erence range: 8.5 - 10 .5 MG/DL. The refe rence range was not u sed to interpret this result as normal/abnor mal. PROTEIN TOTAL (test See_Comment [Automa ayse message] code = 2885-2) The system [facility] generated this result transmitted ref erence range: 6.1 - 8. 3 G/DL. The reference r joesph was not used to interpret this result as normal/abnor mal. ALBUMIN (test code = See_Comment [Autom ated message] 44916-5) The system [facility] [employer] generated this result transmitted ref erence range: 3.5 - 5. 2 G/DL. The reference r joesph was not used to interpret this result as normal/abnor mal. GLOBULINS, SERUM, TOTAL See_Comment [Au tomated message] (test code = 82411-3) The sy stem which generated this result transmitted ref erence range: 1.9 - 3. 7 G/DL. The reference r joesph was not used to interpret this result as normal/abnor mal. A/G RATIO (test code = See_Comment [Aut omated message] 1759-0) The system [employer] generated this result transmitted ref erence range: 1.0 - 2. 6 RATIO. The refe rence range was not u sed to interpret this result as normal/abnor mal. BILIRUBIN TOTAL (test See_Comment [Auto mated message] code = 1974-2) The system [facility] generated this result transmitted ref erence range: <=1.2 MG /DL. The reference r joesph was not used to interpret this result as normal/abnor mal. ALKALINE PHOSPHATASE 77 U/L 40-125 (test code = 6768-6) AST (SGOT) (test code = 28 U/L 9-50 1920-8) ALT (SGPT) (test code = 6 U/L 5-50 Unless 1744-2) Otherwise Indic ated, All Testing Per formed At: [facility], [address] [place] [address] Laboratory Dire ctor: Yosi sanabria M.D. CLIA Num [place] [id number] Cap [place]reditation [place] o. [id number] Lab Interpretation Abnormal (test code = 60706-2) [facility] W/AUTO DIFF WITH [id number] 08:08:35 Test Item Value Reference Range Interpretation Comments WHITE BLOOD CELL COUNT See_Comment [Aut omated message] (test code = 89272-6) The sy stem which generated this result transmitted ref erence range: 4.0 - 11 .0 K/UL. The refer ence range was not u sed to interpret this result as normal/abnor mal. RED BLOOD CELL COUNT See_Comment [Autom ated message] (test code = 50318-8) The sy stem which generated this result transmitted ref erence range: 4.10 - 5 .70 M/UL. The refer ence range was not u sed to interpret this result as normal/abnor mal. HEMOGLOBIN (test code = See_Comment [Au tomated message] 718-7) The system [employer] generated this result transmitted ref erence range: 13.0 - 1 7.0 G/DL. The refer ence range was not u sed to interpret this result as normal/abnor mal. HEMATOCRIT (test code = 41.3 % 37-49 53114-4) MEAN CORPUSCULAR VOLUME 94.7 fL 80-100 (test code = 13517-4) MEAN CORPUSCULAR 32.8 PG 27-34 HEMOGLOBIN (test code = 62889-5) MEAN CORPUSCULAR See_Comment [Automated message] HEMOGLOBIN CONC (test The sy stem which code = 37502-0) generated th is result transmitted ref erence range: 32.0 - 3 5.5 G/DL. The refer ence range was not u sed to interpret this result as normal/abnor mal. RED CELL DISTRIBUTION 13.6 % 11-15 WIDTH (test code = 52693-4) NEUTROPHILS % (test 58.3 % 40-74 code = 21513-6) LYMPHOCYTES % (test 21.5 % 19-48 code = 13767-8) MONOCYTES % (test code 13.2 % 4-13 H = 57250-7) EOSINOPHILS % (test 5.6 % 0-7 code = 20096-8) BASOPHILS % (test code 1.4 % 0-2 = 47078-7) PLATELET COUNT (test See_Comment Unless code = 97838-2) Otherwise In dicated, All Testing Per formed At: [facility], [address] [place] [address] Laboratory Dire ctor: Yosi sanabria M.D. CLIA Num [place] [id number] [place] o. [id number] [Auto mated message] The sy stem which generated this result transmit ayse reference range : 130 - 400 K/UL. The reference range was not used to int erpret this result as normal/abnormal . Lab Interpretation Abnormal (test code = 43993-2) [facility]
[2021-12-28] MEDS ORDERED: ONDANSETRON 4 MG (ODT) TAB PO PRN (16:21)
[2021-12-28] MEDS ORDERED: ACETAMINOPHEN 500 MG TAB PO PRN (16:22)
[2021-12-28] MEDS: ATORVASTATIN 20 MG TAB PO SCH (19:59)
[2021-12-28] MEDS ORDERED: carvediloL 6.25 MG TAB PO SCH (20:00)
[2021-12-28] MEDS ORDERED: cloNIDine HCL 0.1 MG TAB PO PRN (20:41)
[2021-12-29 07:13] LABS: Absolute Lymphocytes (CBC) 0.7 K/uL (0.7-4.9); Hematocrit 40.9 % (39.6-49.0); Lymphocytes % 28.4 % (15.3-44.8); MCV 93.2 fL (80-100); MPV 7.9 fL (7.6-11.3); RBC Red Blood Cell Count 4.39 M/uL (4.33-5.43)
[2021-12-29] MEDS: ENOXAPARIN 40 MG/0.4 ML SQ SCH ×2 (07:13→07:41)
[2021-12-29 07:24] LABS: Albumin 2.8 g/dL (3.4-5.0); Potassium 4.1 mmol/L (3.5-5.1); Prealbumin 14.3 mg/dL (20-40)
[2021-12-29] MEDS: CLOPIDOGREL 75 MG TABLET PO SCH (08:11)
[2021-12-29] MEDS: THIAMINE HCL 100 MG TABLET PO SCH (08:11)
[2021-12-29] MEDS: ASPIRIN EC 81 MG TAB PO SCH (08:11)
[2021-12-29] MEDS: carvediloL 12.5 MG TAB PO SCH ×2 (08:11→20:09)
[2021-12-29] MEDS: FOLIC ACID 1 MG TABLET PO SCH (08:11)
[2021-12-29 08:42] LABS: Blood Morphology Comment NOT SEEN (NOT SEEN); Platelet Estimate DECR; Smudge Cells 1+
[2021-12-29 09:47] LABS: Urine Appearance Clear (Clear); Urine Bilirubin Negative (Negative); Urine Blood Trace-intact (Negative); Urine Color Yellow (Yellow); Urine Glucose Negative (Negative); Urine Protein Negative (Negative)
[2021-12-29 10:01] LABS: Urine Microscopic Reflex ORDER UMIC
[2021-12-29 10:05] LABS: Urine Bacteria NONE SEEN /HPF (NONE SEEN); Urine RBC <5 /HPF (NONE SEEN)
[2021-12-29] MEDS: APIXABAN 2.5 MG TABLET PO SCH (20:09)
[2021-12-29] MEDS: ATORVASTATIN 20 MG TAB PO SCH (20:10)
[2021-12-29] MEDS: ENSURE HIGH PROTEIN 237 ML CAN PO SCH (20:10)
--- NOTE | 2021-12-29 23:29 | R.HP ---
HISTORY AND PHYSICAL FACILITY: [facility] ENCOUNTER DATE AND TIME: 12/28/2021 15:30 (CDT) MR#: [id number] NAME MARÍA SIMPSON ADDRESS: [address] [place] [address] CITY: [place] [address] [id number] PHONE: DATE OF : 1940 AGE: 81 SSN# [id number] GENDER: Male DEXTERITY Unknown dexterity MARITAL STATUS Single (Never ) Unknown race PRE-HOSPITAL LIVING SETTING 01 - Home (private home/apt. board/care, assisted living, shelter, transitional living) PRE-HOSPITAL LIVING WITH Alone ENCOUNTER PHYSICIAN: Dr. Vicente Severino M.D. REFERRING DOCTOR: cristina Schaffer DATE OF ADMISSION: 12/28/2021 14:45 (CDT) REFERRING FACILITY [facility] HOME TYPE AND DETAILS: Type of home: single family house # of levels in the residence: 2 # of steps within the residence: 10 # of steps to enter the residence: 0 ONSET DATE: 12/26/2021 PRIMARY DIAGNOSIS-RELATED SURGERIES: none SECONDARY/COMORBID DIAGNOSES (TIERED): - Non-Tiered Alcohol dependence (F10.2) - N/A Essential (primary) hypertension (I10) HISTORY OF PRESENT ILLNESS (HPI): On 12/26/2021 Pt. presented to [facility] with sudden onset of right-side weakness. Pt. is a 81 yo male of unknown race. On 12/26/2021 he was admitted to [facility] with diagnosis Cerebral infarction, unspecifie d (I63.9). His impairment category is Stroke 01 - Right Body (Left Brain) (01.2). Pre-morbidly, Pt. was independent/mod-I in Locomotion and Self-Care; and he had good Endurance, Pan ce, Safety Awareness, Transfers Control, Sphincter Control, and Communication. Currently, he has deficits of Locomotion, Safety Awareness, Balance, Transfers Control, Sphincter Con trol, Self-Care, Endurance, and Communication. Pt. is now referred to [facility] for acute in-patient rehabilitation in order to maximize patient's functional independence in activities of daily living, strength, ROM, and mobi lity. Patient has realistic goal of being discharged at assistance level 6-Ligia to reside at Home with Pt self. Pt is 81 yo male who presented to the ED with generalized weakness and recent fall. Report from famil y stating pt communication has been gibberishboth verbal and written. Head CT shows 2.9 cm lesi on in L BG/caudate/L Internal capsules with mild compression of the L ventricle. Pt admitted with Acu te CVA and HTN. Pt has PHM of HTN, former smoker, rheumatoid arthritis, and alcohol dependence.Per PT, pt is able to perform bed mobility and transfers with SBA. Pt [id number] ft using FWW with CGA for safety but exhibits unsteady gait when ambulation without AD d/t reduced right foot clearance. Pr ior to onset pt lived alone and reports functioning independently and ambulating without AD. Dueto th e decline in the patients condition he is not currently safe to remain in him current living arran gement due to reductions in balance, strength, endurance,and an inability to independently perform th e necessary activities of daily living and self-care required. Pt is at risk for skin breakdown, DVT, pain,falls, bleeding, and stroke. Our goal is for the patient to become stronger in order for him to safely return home and live independently. Patient would most directly benefit from aggressive 3 clay rs of daily therapy split between physical therapy and occupational therapy and Speech therapy if war ranted, in the acute inpatient rehab setting. He is medically stable with relatively stable labs. He will require 24 hour nursing, doctor supervision and oversight while receiving active and ongoing intensive (PT, OT, ST) due to his current medical condition andPHM. The patient is reasonably expect ed to participate in 3 hours of therapy aday/15 hours per week and receive care with an intensive int erdisciplinary approach. COVID-19 screening performed; Patient denies new onset of fever,cough, diffi culty breathing, sore throat, body aches and non-allergy nasal congestion in the past 24 hours. Patie nt denies travel outside of [place] in the past 14 days. Patient denies any contact with someone who schafer s a confirmed diagnosis of or is under investigation for COVID-19 in the past 14 days. 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 SOCIAL HISTORY: - Home Living Alone REVIEW OF SYSTEMS: - Gen No Chills Fatigue No Fever - Eyes No Double Vision No itchiness - ENMT Difficulty Swallowing - CVS No Chest Discomfort No Chest Pain Fatigue No Weight Gain - Resp No Cough No Shortness of Breath - GI Continent No Abdominal Pain No Constipation No Diarrhea - Continent No Kidney Pain No Painful Urination No Urinary Urgency - MSK No Joint Pain No Muscle Cramps Stiffness - Skin No Itching No Rash No Suspicious Lesions - Neuro Coordination Difficulty No Difficulty with Concentration No Memory Loss No Seizures Weakness - Psych No Anxiety No Depression No HIV Exposure No Persistent Infections No Seasonal Allergies - Endo No Cold/Heat Intolerance No Excessive Hunger No Excessive Thirst No Excessive Urination PHYSICAL EXAM - Gen Alert and awake Lying in bed No apparent distress Oriented to: person, time, and place - Skin No skin breakdown. Normacephalic - Eyes No abnormalities - ENMT No abnormalities - Neck No abnormalities - CVS RRR - Chest No abnormalities - Resp No wheezing - Abd Soft - GI Non distended Deferred - No abnormalities - Ext No significant edema - MSK 4+/5 weakness in right upper and lower extremities - Neuro 4/5 strength right upper and lower extremities. - Psych No abnormalities VITAL SIGNS Temperature: 98.1 F SBP/DBP: 152/71 Pulse: 72 Resp: 16 NURSING: - Shower allowing shower - Bladder care per protocol - Skin care per protocol PRECAUTIONS: - Fall Precaution Bed alarm TABS alarm Wheel chair alarm - DVT Risk due to restricted mobility and age - Incontinence Bladder Incontinence - Skin Breakdown Risk due to restricted mobility and age ACTIVITIES OOB only with supervision QI SCORES: - Self-Care A. Eating 05-Setup or clean-up assistance B. Oral hygiene 05-Setup or clean-up assistance C. Toileting hygiene 04-Supervision or touching assistance E. Shower/bathe self 04-Supervision or touching assistance F. Upper body dressing 05-Setup or clean-up assistance G. Lower body dressing 04-Supervision or touching assistance H. Putting on/taking off footwear 04-Supervision or touching assistance - Mobility A. Roll left and right 04-Supervision or touching assistance B. Sit to lying 04-Supervision or touching assistance C. Lying to sitting on side of bed 04-Supervision or touching assistance D. Sit to stand 04-Supervision or touching assistance E. Chair/gex-bb-[id number] transfer 04-Supervision or touching assistance F. Toilet transfer 04-Supervision or touching assistance G. Car transfer 88-Not attempted due to medical condition or safety concerns I. Walk 10 feet 04-Supervision or touching assistance J. Walk 50 feet with two turns 04-Supervision or touching assistance K. Walk 150 feet 04-Supervision or touching assistance L. Walking 10 feet on uneven surfaces 88-Not attempted due to medical condition or safety concerns M. 1 step (curb) 88-Not attempted due to medical condition or safety concerns N. 4 steps 88-Not attempted due to medical condition or safety concerns O. 12 steps 88-Not attempted due to medical condition or safety concerns P. Picking up object 04-Supervision or touching assistance R. Wheel 50 feet with two turns 09-Not applicable S. Wheel 150 feet 09-Not applicable - Bladder and Bowel Bladder continence 2-Incontinent less than daily Bowel continence 0-Always continent - Endurance Fair - Balance Fair - Safety Awareness Fair CURRENT FUNC. DEFICITS: Self-Care, Mobility, Endurance, Balance, and Safety Awareness MEDICATIONS: - Other See attached MAR (Medication Administration Record) ASSESSMENT: On 12/26/2021 Pt. presented to [facility] with sudden onset of right-side weakness.Pt. is a 81 yo male of unknown race.On 12/26/2021 he was admitted to [facility] with diagnosis Ce rebral infarction, unspecified (I63.9).His impairment category is Stroke 01 - Right Body (Left Brain ) (01.2).Pre-morbidly, Pt. was independent/mod-I in Locomotion and Self-Care; and he had good Enduran ce, Balance, Safety Awareness, Transfers Control, Sphincter Control, and Communication.Currently, he has deficits of Locomotion, Safety Awareness, Balance, Transfers Control, Sphincter Control, Self-Car e, Endurance, and Communication.Pt. is now referred to [facility] for acute in -patient rehabilitation in order to maximize patient's functional independence in activities of daily living, strength, ROM, and mobility.- Rehab Goal Patient has realistic goal of being discharged at assistance level 6-Ligia to reside at Home with Pt self. Pt is 81 yo male who presented to the ED with generalized weakness and recent fall. Report from famil y stating pt communication has been gibberishboth verbal and written. Head CT shows 2.9 cm lesi on in L BG/caudate/L Internal capsules with mild compression of the L ventricle. Pt admitted with Acu te CVA and HTN. Pt has PHM of HTN, former smoker, rheumatoid arthritis, and alcohol dependence.Per PT, pt is able to perform bed mobility and transfers with SBA. Pt [id number] ft using FWW with CGA for safety but exhibits unsteady gait when ambulation without AD d/t reduced right foot clearance. Pr ior to onset pt lived alone and reports functioning independently and ambulating without AD. Dueto th e decline in the patients condition he is not currently safe to remain in him current living arran gement due to reductions in balance, strength, endurance,and an inability to independently perform th e necessary activities of daily living and self-care required. Pt is at risk for skin breakdown, DVT, pain,falls, bleeding, and stroke. Our goal is for the patient to become stronger in order for him to safely return home and live independently. Patient would most directly benefit from aggressive 3 clay rs of daily therapy split between physical therapy and occupational therapy and Speech therapy if war ranted, in the acute inpatient rehab setting. He is medically stable with relatively stable labs. He will require 24 hour nursing, doctor supervision and oversight while receiving active and ongoing intensive (PT, OT, ST) due to his current medical condition andPHM. The patient is reasonably expect ed to participate in 3 hours of therapy aday/15 hours per week and receive care with an intensive int erdisciplinary approach. COVID-19 screening performed; Patient denies new onset of fever,cough, diffi culty breathing, sore throat, body aches and non-allergy nasal congestion in the past 24 hours. Amadamarina lawrence denies travel outside of [place] in the past 14 days. Patient denies any contact with someone who schafer s a confirmed diagnosis of or is under investigation for COVID-19 in the past 14 days.REHAB PLAN: for Dementia, TBI, Stroke, or others - Physical Therapy Gait dysfunction - to improve, our physical therapists will perform initial evaluation of pt's status upon admission and devise an individualized program for Gait Training, and Wheel Chair mobility Inability to transfer - to improve, our physical therapists will perform initial evaluation of pt's s tatus upon admission and devise an individualized program for Bed mobility Need for home safety evaluation - to improve, our physical therapists will perform initial evaluation of pt's status upon admission and devise an individualized program for Home Evaluation Need in caregiver upon discharge - to improve, our physical therapists will perform initial evaluatio n of pt's status upon admission and devise an individualized program for Caregiver Training New precaution - to improve, our physical therapists will perform initial evaluation of pt's status u sabrina admission and devise an individualized program for Patient precaution education Edema - to improve, our physical therapists will perform initial evaluation of pt's status upon admi ssion and devise an individualized program for Elevation Training, and Lymphedema Therapy Poor balance - to improve, our physical therapists will perform initial evaluation of pt's status upo n admission and devise an individualized program for Balance Training Poor endurance - to improve, our physical therapists will perform initial evaluation of pt's status u sabrina admission and devise an individualized program for Endurance Training Weakness - to improve, our physical therapists will perform initial evaluation of pt's status upon ad mission and devise an individualized program for Aquatic Therapy, Neuromuscular Reeducation, and Stre ngthening Achieving independence - to improve, our physical therapists will perform initial evaluation of pt's status upon admission and devise an individualized program for Community Reintegration Activities - Occupational Therapy ADL deficits - to improve, our occupation therapists will perform initial evaluation of pt's status u sabrina admission and devise an individualized program for Bathing, Bed mobility, Community Reintegration , Cooking, Dressing, Eating, Fine Motor Skills, Grooming, Homemaking, Kitchen Mobility, Laundry, Amada ent Education, Safety Awareness, Splinting - Positioning, Transfers(Toilet, Tub, Shower), and Wheel C hair Management Need for medicare interviewer - to improve, our occupation therapists will perform initial evaluation of pt's s tatus upon admission and devise an individualized program for Caregiver Training Weakness - to improve, our occupation therapists will perform initial evaluation of pt's status upon admission and devise an individualized program for Aquatic Therapy, Balance, Endurance, UE ROM, and U E strengthening MEDICAL PLAN: - Diet Type Start Regular - Diet - Liquid Texture Start Regular - Tube Feed Start N/A - Incontinence Bladder Incontinence - Bladder care per protocol - DVT Risk due to restricted mobility and age - Skin Breakdown Risk due to restricted mobility and age - Weight Bearing Precaution WBAT right LE - Fall Precaution Bed alarm TABS alarm Wheel chair alarm - Skin care per protocol - Other See attached MAR (Medication Administration Record) - Diet - Solid Texture Regular - Shower shower DISCHARGE PLAN: - Estimated Length of Stay (days) 17. - Consensus on plan Discharge plan has been discussed with primary caregiver. Patient/Family is in agreement with the melinda n. Primary caregiver is in agreement with the plan. - Patient/Family Goals Return home independently. - Planned Living Setting Upon Discharge Home, to live alone. Transitional Living. Primary caregiver: Pt self. SIGNATURE PANEL: (CDT)
--- NOTE | 2021-12-29 23:30 | PAPE ---
POST ADMISSION PHYSICIAN EVALUATION PATIENT: [facility] MR# [id number] REFERRING DOCTOR cristina Schaffer EVALUATION DATE AND TIME 12/28/2021 15:28 (CDT) NAME MARÍA SIMPSON DATE OF 1940 AGE 81 PHONE N# [id number] GENDER male EVALUATING PHYSICIAN Dr. Vicente Severino M.D. ADMISSION DIAGNOSIS: Cerebral infarction, unspecified (I63.9) ONSET DATE 12/26/2021 SECONDARY/COMORBID DIAGNOSES TIERED: - Non-Tiered Alcohol dependence (F10.2) - N/A Essential (primary) hypertension (I10) POST-ADMISSION FUNCTIONAL/MEDICAL STATUS: - Bladder Same accident frequency: 7-Ind - No accidents in the past 7 days - Bowel Same accident frequency: 7-Ind - No accidents in the past 7 days - Walking Same score based on distance walked: 0(N/A) Same score based on distance walked: 3(>=150ft) - Wheelchair Same score based on distance traveled: 0(N/A) STATUS CHANGE EVALUATION: No change in Functional or Medical Status is identified compared with Pre-Admission screening. PATIENT NEEDS CLOSE MEDICAL SUPERVISION BY A REHABILITATION PHYSICIAN FOR: Coordination of Treatment Team Medical and Co-Morbidity Management Bowel and Bladder Management Pain Management PATIENT REQUIRES 24X7 REHAB NURSING FOR MEDICAL AND FUNCTIONAL MGT. OF THE FOLLOWING DEFICITS: Patient requires 24x7 Rehabilitation Nursing for: Pain Issues, Identifying and preventing risk factor s, Monitoring and reporting current medical conditions, Assisting with ambulation and transfer, Radha ting with all ADL-s, Teaching patients about disease process and medications, Family teaching, Provid ing safe environment, Bowel and Bladder Issues, Skin Integrity, and Medication Management PATIENT REQUIRES INTENSIVE, COORDINATED INTERDISCIPLINARY APPROACH TO REHAB: Patient needs Dietary and Nutrition Services for: Adequate Nutrition, Nutritional Supplements, and Nu tritional Education Patient needs Return Agent and/or Case Management for: Discharge Planning, Arranging Home Equipmen t or Services, and Family Interventions LIST OF IDENTIFIED AND POTENTIAL PROBLEMS: Alteration in leisure activities Bladder, Incontinence Blood Pressure, Hypertension/hypotension Issues Bowel, Incontinence Falls, Actual or Potential Infection, Actual or Potential Mobility Impaired Pain, Alteration in Comfort Self Care Deficit Skin Integrity, Actual or Potential Urinary Tract Infection (UTI), Actual or Potential RISK FOR COMPLICATIONS - DVT Active and Passive ROM exercises. Assist patient with frequent position changes. Elevate BLE. - Skin Breakdown Encourage ambulation as tolerated. Repositioning q 2 hours. Use of pillows or foam wedges while in be d. - Pain Assess pt for pain and Administer prescribed pain medication as needed. Anticipate the need for pain medication for optimal pain managment. Assist patient with frequent position changes at least every 2 hours. Educate patient on relaxation and deep breathing techniques. - Falls Assess for alcohol withdrawal. Assess for medication side effects. Maintain call light within patient reach for easy access to nursing assistance. Provide assistance getting out of bed and with ambulati on. Provide assistive devices. - Seizure Administer prescribed medications. Identify risk factors. Provide safety measures. - Stroke Assess/ Monitor and maintain patient pain level. Assess/ Monitor patient blood pressure. INTERVENTIONS - Permissive Hypertension Assess/ Monitor patient B/P and treat with prescribed medications. Implement healthy diet. Increase p hysical activity. Limit patient consumption of alcohol. Administer medications indicated by physician and monitor for effectiveness. - CVA Provide aggressive PT, OT, and Speech therapy to improve pt functionality. Regularly assess Neuro sta tus. - Pain Monitor for headaches. Anticipate the need for pain medication for optimal pain managment. Assess/Mon itor pt pain and treat with prescribed pain medications. - Weakness Assist pt with all OOB activity. Maintain pt safety. Aggressive PT. - Altered Mental Status Maintain pt safety. Frequent Neuro checks. PATIENT COULD BE AT RISK FOR COMPLICATIONS FROM ADVERSE MEDICAL CONDITIONS DUE TO HIS/HER COMORBIDITI ES AND THE RIGORS OF THE INTENSIVE REHABILLITATION PROGRAM. METHODS OR INTERVENTIONS TO AVOID COMPLIC ATIONS INCLUDE: - Bleeding Stroke patients assessed for lethargy or change in status. - Infection Clinical staff to assess and manage the signs and symptoms of infection including fever, redness, war mth, etc. - Urinary Tract Infection - Aspiration Clinical staff will assess and manage coughing, drooling, congestion. - Falls Patient will be evaluated for Fall Precautions and will be placed on Fall Precautions as indicated pe r protocol. - Skin Breakdown Nursing will assess skin daily using assessment tool and will place on Skin Breakdown Precautions as indicated per protocol. - Pain Clinical staff may employ non-medication methods such as massage, distraction, decrease stimulus, etc . as needed. Clinical staff will assess patient's pain level every shift per protocol to assess and e nsure pain management effectiveness. Medications will be given and the pain level re-assessed. PRELIMINARY PLAN OF CARE: - Physical Therapy Patient needs Physical Therapy for a daily minimum of 1.5 hours at least 5 out of 7 days, to improve: Mobility, Strengthening, Transfers, Stretching, ROM, Endurance, Ability to manage stairs, Gait, and Balance. - Speech Therapy Patient needs Speech Therapy for a daily minimum of 0.5 hours at least 5 out of 7 days, to improve: S wallowing, Cognition, Language Skills, and Compensatory Strategies. - Rehabilitation Nursing Patient requires 24x7 Rehabilitation Nursing for: Pain Issues, Identifying and preventing risk factor s, Monitoring and reporting current medical conditions, Assisting with ambulation and transfer, Radha ting with all ADL-s, Teaching patients about disease process and medications, Family teaching, Provid ing safe environment, Bowel and Bladder Issues, Skin Integrity, and Medication Management. Patient needs Return Agent and/or Case Management for: Discharge Planning, Arranging Home Equipmen t or Services, and Family Interventions. - Dietary and Nutrition Services Patient needs Dietary and Nutrition Services for: Adequate Nutrition, Nutritional Supplements, and Nu tritional Education. - Occupational Therapy Patient needs Occupational Therapy for a daily minimum of 1.5 hours at least 5 out of 7 days, to impr ove Activities of Daily Living, including: Eating, Grooming, Bathing, Dressing, Toileting, Toilet Tra nsfers, Community Reintegration, Higher functional activities, Adaptive Equipment, Splinting, Househo ld Tasks, and Other activities as determined. QI SCORES: - Self-Care A. Eating 05-Setup or clean-up assistance B. Oral hygiene 05-Setup or clean-up assistance C. Toileting hygiene 04-Supervision or touching assistance E. Shower/bathe self 04-Supervision or touching assistance F. Upper body dressing 05-Setup or clean-up assistance G. Lower body dressing 04-Supervision or touching assistance H. Putting on/taking off footwear 04-Supervision or touching assistance - Mobility A. Roll left and right 04-Supervision or touching assistance B. Sit to lying 04-Supervision or touching assistance C. Lying to sitting on side of bed 04-Supervision or touching assistance D. Sit to stand 04-Supervision or touching assistance E. Chair/[id number] transfer 04-Supervision or touching assistance F. Toilet transfer 04-Supervision or touching assistance G. Car transfer 88-Not attempted due to medical condition or safety concerns I. Walk 10 feet 04-Supervision or touching assistance J. Walk 50 feet with two turns 04-Supervision or touching assistance K. Walk 150 feet 04-Supervision or touching assistance L. Walking 10 feet on uneven surfaces 88-Not attempted due to medical condition or safety concerns M. 1 step (curb) 88-Not attempted due to medical condition or safety concerns N. 4 steps 88-Not attempted due to medical condition or safety concerns O. 12 steps 88-Not attempted due to medical condition or safety concerns P. Picking up object 04-Supervision or touching assistance R. Wheel 50 feet with two turns 09-Not applicable S. Wheel 150 feet 09-Not applicable - Bladder and Bowel Bladder continence 2-Incontinent less than daily Bowel continence 0-Always continent - Endurance Fair - Balance Fair - Safety Awareness Fair POTENTIAL FUNCTIONAL GOALS FOR PATIENT TO ACHIEVE BY DISCHARGE: - Safety Precaution Patient will remain free from falls or injury at time of discharge. - Bed Mobility Patient will perform bed mobility at 4-Jamari level of assistance. - Transfers Patient will complete transfers from bed to chair at 4-Jamari level of assistance. - Mobility Patient will ambulate 150 ft with 4-Jamari level of assistance with RW. PATIENT REHAB POTENTIAL Luisa SIMPSON is able and expected to receive 3 hours of individualized therapy daily on at least 5 of cortez ry 7 days Luisa Brothers prognosis for significant practical improvement within a reasonable period of time appears Good Expected level of measurable improvement will be of a practical value to Luisa SIMPSON's functional capaci ty or adaptations to impairments Has a viable Discharge Plan Medically appropriate; condition is sufficiently stable to participate in intensive rehab program DISCHARGE PLAN: - Estimated Length of Stay (days) 17. - Consensus on plan Discharge plan has been discussed with primary caregiver. Patient/Family is in agreement with the melinda n. Primary caregiver is in agreement with the plan. - Patient/Family Goals Return home independently. - Planned Living Setting Upon Discharge Home, to live alone. Transitional Living. Primary caregiver: Pt self. CONCLUSION ON REHABILITATION NECESSITY: I have evaluated patient's pre-admission functional status and, comparing it to the patient's post-ad mission functional status now, I conclude that the pre-admission assessment was accurate. Patient's c ondition on admission supports the medical necessity of admission to IR[facility]. It is safe to proceed with patient's therapy program. SIGNATURE PANEL: (CDT)
[2021-12-30] MEDS: carvediloL 12.5 MG TAB PO SCH ×2 (07:12→20:41)
[2021-12-30] MEDS: FOLIC ACID 1 MG TABLET PO SCH (07:21)
[2021-12-30] MEDS: CLOPIDOGREL 75 MG TABLET PO SCH (07:21)
[2021-12-30] MEDS: ASPIRIN EC 81 MG TAB PO SCH (07:21)
[2021-12-30] MEDS: THIAMINE HCL 100 MG TABLET PO SCH (07:21)
[2021-12-30] MEDS: APIXABAN 2.5 MG TABLET PO SCH ×2 (07:21→20:42)
[2021-12-30] MEDS: ENSURE HIGH PROTEIN 237 ML CAN PO SCH ×2 (07:22→20:42)
[2021-12-30] MEDS: ATORVASTATIN 20 MG TAB PO SCH (20:42)
[2021-12-31 04:30] LABS: Absolute Lymphocytes (CBC) 1.1 K/uL (0.7-4.9); Hematocrit 41.4 % (39.6-49.0); Lymphocytes % 28.1 % (15.3-44.8); MCV 93.6 fL (80-100); MPV 8.1 fL (7.6-11.3); RBC Red Blood Cell Count 4.42 M/uL (4.33-5.43)
[2021-12-31] MEDS: carvediloL 12.5 MG TAB PO SCH ×2 (08:00→17:22)
[2021-12-31] MEDS: APIXABAN 2.5 MG TABLET PO SCH ×2 (08:35→19:13)
[2021-12-31] MEDS: FOLIC ACID 1 MG TABLET PO SCH (08:55)
[2021-12-31] MEDS: ASPIRIN EC 81 MG TAB PO SCH (08:55)
[2021-12-31] MEDS: CLOPIDOGREL 75 MG TABLET PO SCH (08:56)
[2021-12-31] MEDS: THIAMINE HCL 100 MG TABLET PO SCH (08:56)
[2021-12-31] MEDS: ENSURE HIGH PROTEIN 237 ML CAN PO SCH ×2 (08:59→19:14)
--- NOTE | 2021-12-31 17:06 | R.PN ---
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 Pt denied any depression. WBC 3.8, Hgb 14.4, prealbumin 14.3. Ambulated 1250' with contact guard assistance using a rolling walker. VITAL SIGNS Temperature: 98.1 F SBP/DBP: 152/71 Pulse: 72 Resp: 16 MEDICATION ALLERGIES: No Known Drug Allergies (NKDA) ENVIRONMENTAL ALLERGIES: - Substance Allergies None Known - Other Allergies None Known NURSING: - Shower allowing shower - Bladder care per protocol - Skin care per protocol PRECAUTIONS: - Fall Precaution Bed alarm TABS alarm Wheel chair alarm - DVT Risk due to restricted mobility and age - Incontinence Bladder Incontinence - Skin Breakdown Risk due to restricted mobility and age ACTIVITIES OOB only with supervision THERAPIES: - Dietary and Nutrition Adequate Nutrition. Nutritional Education. Nutritional Supplements. - Occupational Therapy Cognitive Retraining. Patient needs Occupational Therapy for a daily minimum of 1.5 hours at least 5 out of 7 days, to improve Activities of Daily Living, including: Eating, Grooming, Bathing, Dressing, Toileting, Toilet Transfers, Community Reintegration, Higher functional activities, Adaptive Equipme nt, Splinting, Household Tasks, and Other activities as determined. Visual Perceptual Training. - Speech Therapy Cognitive Training. Expressive Language Skills. Memory Strategies. Patient needs Speech Therapy for a daily minimum of 0.5 hours at least 5 out of 7 days, to improve: Swallowing, Cognition, Language Ski lls, and Compensatory Strategies. Receptive Language Skills. Speech Intelligibility Training. - Physical Therapy Patient needs Physical Therapy for a daily minimum of 1.5 hours at least 5 out of 7 days, to improve: Mobility, Strengthening, Transfers, Stretching, ROM, Endurance, Ability to manage stairs, Gait, and Balance. PHYSICAL EXAM - Gen Alert and awake Lying in bed No apparent distress Oriented to: person, time, and place - Skin No skin breakdown. Normacephalic - Eyes No abnormalities - ENMT No abnormalities - Neck No abnormalities - CVS RRR - Chest No abnormalities - Resp No wheezing - Abd Soft - GI Non distended Deferred - No abnormalities - Ext No significant edema - MSK 4+/5 weakness in right upper and lower extremities - Neuro 4/5 strength right upper and lower extremities. - Psych No abnormalities ASSESSMENT: On 12/26/2021 Pt. presented to [facility] with sudden onset of right-side weakness.Pt. is a 81 yo male of unknown race.On 12/26/2021 he was admitted to [facility] with diagnosis Ce rebral infarction, unspecified (I63.9).His impairment category is Stroke 01 - Right Body (Left Brain ) (01.2).Pre-morbidly, Pt. was independent/mod-I in Locomotion and Self-Care; and he had good Enduran ce, Balance, Safety Awareness, Transfers Control, Sphincter Control, and Communication.Currently, he has deficits of Locomotion, Safety Awareness, Balance, Transfers Control, Sphincter Control, Self-Car e, Endurance, and Communication.Pt. is now [facility] to [facility] for acute in -patient rehabilitation in order to maximize patient's functional independence in activities of daily living, strength, ROM, and mobility.- Rehab Goal Patient has realistic goal of being discharged at assistance level 6-Ligia to reside at Home with Pt self. MDM/PLAN: - Physical Therapy Gait dysfunction - to improve, our physical therapists will perform initial evaluation of pt's statu s upon admission and devise an individualized program for Gait Training, and Wheel Chair mobility Inability to transfer - to improve, our physical therapists will perform initial evaluation of pt's status upon admission and devise an individualized program for Bed mobility Need for home safety evaluation - to improve, our physical therapists will perform initial evaluatio n of pt's status upon admission and devise an individualized program for Home Evaluation Need in caregiver upon discharge - to improve, our physical therapists will perform initial evaluati on of pt's status upon admission and devise an individualized program for Caregiver Training New precaution - to improve, our physical therapists will perform initial evaluation of pt's status upon admission and devise an individualized program for Patient precaution education Edema - to improve, our physical therapists will perform initial evaluation of pt's status upon admis yusra and devise an individualized program for Elevation Training, and Lymphedema Therapy Poor balance - to improve, our physical therapists will perform initial evaluation of pt's status up on admission and devise an individualized program for Balance Training Poor endurance - to improve, our physical therapists will perform initial evaluation of pt's status upon admission and devise an individualized program for Endurance Training Weakness - to improve, our physical therapists will perform initial evaluation of pt's status upon a dmission and devise an individualized program for Aquatic Therapy, Neuromuscular Reeducation, and Str engthening Achieving independence - to improve, our physical therapists will perform initial evaluation of pt's status upon admission and devise an individualized program for Community Reintegration Activities - Occupational Therapy ADL deficits - to improve, our occupation therapists will perform initial evaluation of pt's status upon admission and devise an individualized program for Bathing, Bed mobility, Community Reintegratio n, Cooking, Dressing, Eating, Fine Motor Skills, Grooming, Homemaking, Kitchen Mobility, Laundry, Pat ient Education, Safety Awareness, Splinting - Positioning, Transfers(Toilet, Tub, Shower), and Wheel Chair Management Need for cardiac care unit nurse - to improve, our occupation therapists will perform initial evaluation of pt's status upon admission and devise an individualized program for Caregiver Training Weakness - to improve, our occupation therapists will perform initial evaluation of pt's status upon admission and devise an individualized program for Aquatic Therapy, Balance, Endurance, UE ROM, and UE strengthening - Other See attached MAR (Medication Administration Record) - Diet Type Continue Regular - Diet - Liquid Texture Continue Regular - Tube Feed Continue N/A - Incontinence Bladder Incontinence - Bladder care per protocol - DVT Risk due to restricted mobility and age - Skin Breakdown Risk due to restricted mobility and age - Weight Bearing Precaution WBAT right LE - Fall Precaution Bed alarm TABS alarm Wheel chair alarm - Skin care per protocol - Diet - Solid Texture Continue Regular - Shower allowing shower for Dementia, TBI, Stroke, or others FUNCTIONAL STATUS: UPDATED AT WEEKLY TEAM CONFERENCE - Bladder Same accident frequency: 7-Ind - No accidents in the past 7 days - Bowel Same accident frequency: 7-Ind - No accidents in the past 7 days - Walking Same score based on distance walked: 0(N/A) Same score based on distance walked: 3(>=150ft) - Wheelchair Same score based on distance traveled: 0(N/A) FUNCTIONAL STATUS: - Self-Care A. Eating Ind B. Grooming Ligia C. Bathing sup D. Dressing - Upper Ligia E. Dressing - Lower Jamari F. Toileting sup - Sphincter Control G. Bladder control Ligia H. Bowel control Ligia - Transfers Control I. Bed/Chair/Wheelchair sup J. Toilet sup K. Tub/Shower Jamari - Locomotion L. Walk/Wheelchair (B) Jamari M. Stairs maxA - Communication N. Comprehension (B) Ligia O. Expression (B) Ligia - Social Cognition P. Social Interaction Ligia Q. Problem Solving Ligia R. Memory Ligia - Endurance Good - Balance Good - Safety Awareness Good QI SCORES: - Self-Care A. Eating 05-Setup or clean-up assistance B. Oral hygiene 05-Setup or clean-up assistance C. Toileting hygiene 04-Supervision or touching assistance E. Shower/bathe self 04-Supervision or touching assistance F. Upper body dressing 05-Setup or clean-up assistance G. Lower body dressing 04-Supervision or touching assistance H. Putting on/taking off footwear 04-Supervision or touching assistance - Mobility A. Roll left and right 04-Supervision or touching assistance B. Sit to lying 04-Supervision or touching assistance C. Lying to sitting on side of bed 04-Supervision or touching assistance D. Sit to stand 04-Supervision or touching assistance E. Chair/ryt-pb-gxfua transfer 04-Supervision or touching assistance F. Toilet transfer 04-Supervision or touching assistance G. Car transfer 88-Not attempted due to medical condition or safety concerns I. Walk 10 feet 04-Supervision or touching assistance J. Walk 50 feet with two turns 04-Supervision or touching assistance K. Walk 150 feet 04-Supervision or touching assistance L. Walking 10 feet on uneven surfaces 88-Not attempted due to medical condition or safety concerns M. 1 step (curb) 88-Not attempted due to medical condition or safety concerns N. 4 steps 88-Not attempted due to medical condition or safety concerns O. 12 steps 88-Not attempted due to medical condition or safety concerns P. Picking up object 04-Supervision or touching assistance R. Wheel 50 feet with two turns 09-Not applicable S. Wheel 150 feet 09-Not applicable - Bladder and Bowel Bladder continence 2-Incontinent less than daily Bowel continence 0-Always continent - Endurance Fair - Balance Fair - Safety Awareness Fair [facility]RENT [facility]. DEFICITS: Self-Care, Mobility, Endurance, Balance, and Safety Awareness SIGNATURE PANEL: (CDT)
[2021-12-31] MEDS: ATORVASTATIN 20 MG TAB PO SCH (19:13)
[2022-01-01] MEDS: carvediloL 12.5 MG TAB PO SCH ×2 (05:07→17:50)
[2022-01-01] MEDS: THIAMINE HCL 100 MG TABLET PO SCH (08:34)
[2022-01-01] MEDS: APIXABAN 2.5 MG TABLET PO SCH ×2 (08:34→19:50)
[2022-01-01] MEDS: CLOPIDOGREL 75 MG TABLET PO SCH (08:34)
[2022-01-01] MEDS: ASPIRIN EC 81 MG TAB PO SCH (08:34)
[2022-01-01] MEDS: FOLIC ACID 1 MG TABLET PO SCH (08:34)
[2022-01-01] MEDS: ENSURE HIGH PROTEIN 237 ML CAN PO SCH ×2 (08:36→19:50)
--- NOTE | 2022-01-01 18:07 | R.PN ---
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 Pt denied any depression. WBC 3.8, Hgb 14.4, prealbumin 14.3. Ambulated 750' with contact guard assistance using a rolling walker. Ambulated 20' without an assisti ve device and minimum assistance. VITAL SIGNS Temperature: 97.8 F SBP/DBP: 146/70 Pulse: 62 Resp: 16 MEDICATION ALLERGIES: No Known Drug Allergies (NKDA) ENVIRONMENTAL ALLERGIES: - Substance Allergies None Known - Other Allergies None Known NURSING: - Shower allowing shower - Bladder care per protocol - Skin care per protocol PRECAUTIONS: - Fall Precaution Bed alarm TABS alarm Wheel chair alarm - DVT Risk due to restricted mobility and age - Incontinence Bladder Incontinence - Skin Breakdown Risk due to restricted mobility and age ACTIVITIES OOB only with supervision THERAPIES: - Dietary and Nutrition Adequate Nutrition. Nutritional Education. Nutritional Supplements. - Occupational Therapy Cognitive Retraining. Patient needs Occupational Therapy for a daily minimum of 1.5 hours at least 5 out of 7 days, to improve Activities of Daily Living, including: Eating, Grooming, Bathing, Dressing, Toileting, Toilet Transfers, Community Reintegration, Higher functional activities, Adaptive Equipme nt, Splinting, Household Tasks, and Other activities as determined. Visual Perceptual Training. - Speech Therapy Cognitive Training. Expressive Language Skills. Memory Strategies. Patient needs Speech Therapy for a daily minimum of 0.5 hours at least 5 out of 7 days, to improve: Swallowing, Cognition, Language Ski lls, and Compensatory Strategies. Receptive Language Skills. Speech Intelligibility Training. - Physical Therapy Patient needs Physical Therapy for a daily minimum of 1.5 hours at least 5 out of 7 days, to improve: Mobility, Strengthening, Transfers, Stretching, ROM, Endurance, Ability to manage stairs, Gait, and Balance. PHYSICAL EXAM - Gen Alert and awake Lying in bed No apparent distress Oriented to: person, time, and place - Skin No skin breakdown. Normacephalic - Eyes No abnormalities - ENMT No abnormalities - Neck No abnormalities - CVS RRR - Chest No abnormalities - Resp No wheezing - Abd Soft - GI Non distended Deferred - No abnormalities - Ext No significant edema - MSK 4+/5 weakness in right upper and lower extremities - Neuro 4/5 strength right upper and lower extremities. - Psych No abnormalities ASSESSMENT: On 12/26/2021 Pt. presented to [facility] with sudden onset of right-side weakness.Pt. is a 81 yo male of unknown race.On 12/26/2021 he was admitted to [facility] with diagnosis Ce rebral infarction, unspecified (I63.9).His impairment category is Stroke 01 - Right Body (Left Brain ) (01.2).Pre-morbidly, Pt. was independent/mod-I in Locomotion and Self-Care; and he had good Enduran ce, Balance, Safety Awareness, Transfers Control, Sphincter Control, and Communication.Currently, he has deficits of Locomotion, Safety Awareness, Balance, Transfers Control, Sphincter Control, Self-Car e, Endurance, and Communication.Pt. is now referred to [facility] for acute in -patient rehabilitation in order to maximize patient's functional independence in activities of daily living, strength, ROM, and mobility.- Rehab Goal Patient has realistic goal of being discharged at assistance level 6-Ligia to reside at Home with Pt self. MDM/PLAN: - Physical Therapy Gait dysfunction - to improve, our physical therapists will perform initial evaluation of pt's statu s upon admission and devise an individualized program for Gait Training, and Wheel Chair mobility Inability to transfer - to improve, our physical therapists will perform initial evaluation of pt's status upon admission and devise an individualized program for Bed mobility Need for home safety evaluation - to improve, our physical therapists will perform initial evaluatio n of pt's status upon admission and devise an individualized program for Home Evaluation Need in caregiver upon discharge - to improve, our physical therapists will perform initial evaluati on of pt's status upon admission and devise an individualized program for Caregiver Training New precaution - to improve, our physical therapists will perform initial evaluation of pt's status upon admission and devise an individualized program for Patient precaution education Edema - to improve, our physical therapists will perform initial evaluation of pt's status upon admi ssion and devise an individualized program for Elevation Training, and Lymphedema Therapy Poor balance - to improve, our physical therapists will perform initial evaluation of pt's status up on admission and devise an individualized program for Balance Training Poor endurance - to improve, our physical therapists will perform initial evaluation of pt's status upon admission and devise an individualized program for Endurance Training Weakness - to improve, our physical therapists will perform initial evaluation of pt's status upon a dmission and devise an individualized program for Aquatic Therapy, Neuromuscular Reeducation, and Str engthening Achieving independence - to improve, our physical therapists will perform initial evaluation of pt's status upon admission and devise an individualized program for Community Reintegration Activities - Occupational Therapy ADL deficits - to improve, our occupation therapists will perform initial evaluation of pt's status upon admission and devise an individualized program for Bathing, Bed mobility, Community Reintegratio n, Cooking, Dressing, Eating, Fine Motor Skills, Grooming, Homemaking, Kitchen Mobility, Laundry, Pat ient Education, Safety Awareness, Splinting - Positioning, Transfers(Toilet, Tub, Shower), and Wheel Chair Management Need for ambulatory care nurse - to improve, our occupation therapists will perform initial evaluation of pt's status upon admission and devise an individualized program for Caregiver Training Weakness - to improve, our occupation therapists will perform initial evaluation of pt's status upon admission and devise an individualized program for Aquatic Therapy, Balance, Endurance, UE ROM, and UE strengthening - Other See attached MAR (Medication Administration Record) - Diet Type Continue Regular - Diet - Liquid Texture Continue Regular - Tube Feed Continue N/A - Incontinence Bladder Incontinence - Bladder care per protocol - DVT Risk due to restricted mobility and age - Skin Breakdown Risk due to restricted mobility and age - Weight Bearing Precaution WBAT right LE - Fall Precaution Bed alarm TABS alarm Wheel chair alarm - Skin care per protocol - Diet - Solid Texture Continue Regular - Shower allowing shower for Dementia, TBI, Stroke, or others FUNCTIONAL STATUS: UPDATED AT WEEKLY TEAM CONFERENCE - Bladder Same accident frequency: 7-Ind - No accidents in the past 7 days - Bowel Same accident frequency: 7-Ind - No accidents in the past 7 days - Walking Same score based on distance walked: 0(N/A) Same score based on distance walked: 3(>=150ft) - Wheelchair Same score based on distance traveled: 0(N/A) FUNCTIONAL STATUS: - Self-Care A. Eating Ind B. Grooming Ligia C. Bathing sup D. Dressing - Upper Ligia E. Dressing - Lower Jamari F. Toileting sup - Sphincter Control G. Bladder control Ligia H. Bowel control Ligia - Transfers Control I. Bed/Chair/Wheelchair sup J. Toilet sup K. Tub/Shower Jamari - Locomotion L. Walk/Wheelchair (B) Jamari M. Stairs maxA - Communication N. Comprehension (B) Ligia O. Expression (B) Ligia - Social Cognition P. Social Interaction Ligia Q. Problem Solving Ligia R. Memory Ligia - Endurance Good - Balance Good - Safety Awareness Good QI SCORES: - Self-Care A. Eating 05-Setup or clean-up assistance B. Oral hygiene 05-Setup or clean-up assistance C. Toileting hygiene 04-Supervision or touching assistance E. Shower/bathe self 04-Supervision or touching assistance F. Upper body dressing 05-Setup or clean-up assistance G. Lower body dressing 04-Supervision or touching assistance H. Putting on/taking off footwear 04-Supervision or touching assistance - Mobility A. Roll left and right 04-Supervision or touching assistance B. Sit to lying 04-Supervision or touching assistance C. Lying to sitting on side of bed 04-Supervision or touching assistance D. Sit to stand 04-Supervision or touching assistance E. Chair/axw-mb-ifrav transfer 04-Supervision or touching assistance F. Toilet transfer 04-Supervision or touching assistance G. Car transfer 88-Not attempted due to medical condition or safety concerns I. Walk 10 feet 04-Supervision or touching assistance J. Walk 50 feet with two turns 04-Supervision or touching assistance K. Walk 150 feet 04-Supervision or touching assistance L. Walking 10 feet on uneven surfaces 88-Not attempted due to medical condition or safety concerns M. 1 step (curb) 88-Not attempted due to medical condition or safety concerns N. 4 steps 88-Not attempted due to medical condition or safety concerns O. 12 steps 88-Not attempted due to medical condition or safety concerns P. Picking up object 04-Supervision or touching assistance R. Wheel 50 feet with two turns 09-Not applicable S. Wheel 150 feet 09-Not applicable - Bladder and Bowel Bladder continence 2-Incontinent less than daily Bowel continence 0-Always continent - Endurance Fair - Balance Fair - Safety Awareness Fair CURRENT [facility]. DEFICITS: Self-Care, Mobility, Endurance, Balance, and Safety Awareness SIGNATURE PANEL: (CDT)
[2022-01-01] MEDS: ATORVASTATIN 20 MG TAB PO SCH (19:50)
[2022-01-02] MEDS: carvediloL 12.5 MG TAB PO SCH ×2 (05:03→16:42)
[2022-01-02] MEDS: CLOPIDOGREL 75 MG TABLET PO SCH (07:39)
[2022-01-02] MEDS: FOLIC ACID 1 MG TABLET PO SCH (07:39)
[2022-01-02] MEDS: ENSURE HIGH PROTEIN 237 ML CAN PO SCH ×2 (07:39→19:55)
[2022-01-02] MEDS: APIXABAN 2.5 MG TABLET PO SCH ×2 (07:39→19:54)
[2022-01-02] MEDS: THIAMINE HCL 100 MG TABLET PO SCH (07:39)
[2022-01-02] MEDS: ASPIRIN EC 81 MG TAB PO SCH (07:39)
--- NOTE | 2022-01-02 12:55 | EKG ---
Test Date: 2022-01-01 Test Time: 13:38:39 Electron Beam Operator: REYES MEASUREMENT RESULTS: Intervals: Rate: 60 WV: 142 QRSD: 120 QT: 438 QTc: 438 [place]: P: 52 WV: 142 QRS: 8 T: 44 INTERPRETIVE STATEMENTS: Normal sinus rhythm Right bundle branch block Abnormal ECG Compared to ECG 05/11/2018 14:50:34 No significant changes Electronically Signed On 01-02-22 12:53:54 CDT by Erik Marques
--- NOTE | 2022-01-02 18:00 | R.PN ---
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 SUBJECTIVE: Pt denied any Shortness of Breath. Pt denied any depression. WBC 3.8, Hgb 14.4, prealbumin 14.3. Ambulated 1000' with contact guard assistance using a rolling walker. Up and down 15 steps with cont act guard assistance. Blood pressure dropped from 140/77, pulse 72 to 61/44, pulse 71 going from lying to standing. He was symptomatic. Will place abdominal binder, JAYCEE hose to above the knee and midodrine 5 mg twice daily. VITAL SIGNS Temperature: 97.8 F SBP/DBP: 146/70 Pulse: 62 Resp: 16 MEDICATION ALLERGIES: No Known Drug Allergies (NKDA) ENVIRONMENTAL ALLERGIES: - Substance Allergies None Known - Other Allergies None Known NURSING: - Shower allowing shower - Bladder care per protocol - Skin care per protocol PRECAUTIONS: - Fall Precaution Bed alarm TABS alarm Wheel chair alarm - DVT Risk due to restricted mobility and age - Incontinence Bladder Incontinence - Skin Breakdown Risk due to restricted mobility and age ACTIVITIES OOB only with supervision THERAPIES: - Dietary and Nutrition Adequate Nutrition. Nutritional Education. Nutritional Supplements. - Occupational Therapy Cognitive Retraining. Patient needs Occupational Therapy for a daily minimum of 1.5 hours at least 5 out of 7 days, to improve Activities of Daily Living, including: Eating, Grooming, Bathing, Dressing, Toileting, Toilet Transfers, Community Reintegration, Higher functional activities, Adaptive Equipme nt, Splinting, Household Tasks, and Other activities as determined. Visual Perceptual Training. - Speech Therapy Cognitive Training. Expressive Language Skills. Memory Strategies. Patient needs Speech Therapy for a daily minimum of 0.5 hours at least 5 out of 7 days, to improve: Swallowing, Cognition, Language Ski lls, and Compensatory Strategies. Receptive Language Skills. Speech Intelligibility Training. - Physical Therapy Patient needs Physical Therapy for a daily minimum of 1.5 hours at least 5 out of 7 days, to improve: Mobility, Strengthening, Transfers, Stretching, ROM, Endurance, Ability to manage stairs, Gait, and Balance. PHYSICAL EXAM - Gen Alert and awake Lying in bed No apparent distress Oriented to: person, time, and place - Skin No skin breakdown. Normacephalic - Eyes No abnormalities - ENMT No abnormalities - Neck No abnormalities - CVS RRR - Chest No abnormalities - Resp No wheezing - Abd Soft - GI Non distended Deferred - No abnormalities - Ext No significant edema - MSK 4+/5 weakness in right upper and lower extremities - Neuro 4/5 strength right upper and lower extremities. - Psych No abnormalities ASSESSMENT: On 12/26/2021 Pt. presented to [facility] with sudden onset of right-side weakness.Pt. is a 81 yo male of unknown race.On 12/26/2021 he was admitted to [facility] with diagnosis Ce rebral infarction, unspecified (I63.9).His impairment category is Stroke 01 - Right Body (Left Brain ) (01.2).Pre-morbidly, Pt. was independent/mod-I in Locomotion and Self-Care; and he had good Enduran ce, Balance, Safety Awareness, Transfers Control, Sphincter Control, and Communication.Currently, he has deficits of Locomotion, Safety Awareness, Balance, Transfers Control, Sphincter Control, Self-Car e, Endurance, and Communication.Pt. is now referred to [facility] for acute in -patient rehabilitation in order to maximize patient's functional independence in activities of daily living, strength, ROM, and mobility.- Rehab Goal Patient has realistic goal of being discharged at assistance level 6-Ligia to reside at Home with Pt self. MDM/PLAN: - Physical Therapy Gait dysfunction - to improve, our physical therapists will perform initial evaluation of pt's statu s upon admission and devise an individualized program for Gait Training, and Wheel Chair mobility Inability to transfer - to improve, our physical therapists will perform initial evaluation of pt's status upon admission and devise an individualized program for Bed mobility Need for home safety evaluation - to improve, our physical therapists will perform initial evaluatio n of pt's status upon admission and devise an individualized program for Home Evaluation Need in caregiver upon discharge - to improve, our physical therapists will perform initial evaluati on of pt's status upon admission and devise an individualized program for Caregiver Training New precaution - to improve, our physical therapists will perform initial evaluation of pt's status upon admission and devise an individualized program for Patient precaution education Edema - to improve, our physical therapists will perform initial evaluation of pt's status upon admi ssion and devise an individualized program for Elevation Training, and Lymphedema Therapy Poor balance - to improve, our physical therapists will perform initial evaluation of pt's status up on admission and devise an individualized program for Balance Training Poor endurance - to improve, our physical therapists will perform initial evaluation of pt's status upon admission and devise an individualized program for Endurance Training Weakness - to improve, our physical therapists will perform initial evaluation of pt's status upon a dmission and devise an individualized program for Aquatic Therapy, Neuromuscular Reeducation, and Str engthening Achieving independence - to improve, our physical therapists will perform initial evaluation of pt's status upon admission and devise an individualized program for Community Reintegration Activities - Occupational Therapy ADL deficits - to improve, our occupation therapists will perform initial evaluation of pt's status upon admission and devise an individualized program for Bathing, Bed mobility, Community Reintegratio n, Cooking, Dressing, Eating, Fine Motor Skills, Grooming, Homemaking, Kitchen Mobility, Laundry, Pat ient Education, Safety Awareness, Splinting - Positioning, Transfers(Toilet, Tub, Shower), and Wheel Chair Management Need for healthcare insurance sales agent - to improve, our occupation therapists will perform initial evaluation of pt's status upon admission and devise an individualized program for Caregiver Training Weakness - to improve, our occupation therapists will perform initial evaluation of pt's status upon admission and devise an individualized program for Aquatic Therapy, Balance, Endurance, UE ROM, and UE strengthening - Other See attached MAR (Medication Administration Record) - Diet Type Continue Regular - Diet - Liquid Texture Continue Regular - Tube Feed Continue N/A - Incontinence Bladder Incontinence - Bladder care per protocol - DVT Risk due to restricted mobility and age - Skin Breakdown Risk due to restricted mobility and age - Weight Bearing Precaution WBAT right LE - Fall Precaution Bed alarm TABS alarm Wheel chair alarm - Skin care per protocol - Diet - Solid Texture Continue Regular - Shower allowing shower for Dementia, TBI, Stroke, or others FUNCTIONAL STATUS: UPDATED AT WEEKLY TEAM CONFERENCE - Bladder Same accident frequency: 7-Ind - No accidents in the past 7 days - Bowel Same accident frequency: 7-Ind - No accidents in the past 7 days - Walking Same score based on distance walked: 0(N/A) Same score based on distance walked: 3(>=150ft) - Wheelchair Same score based on distance traveled: 0(N/A) FUNCTIONAL STATUS: - Self-Care A. Eating Ind B. Grooming Ligia C. Bathing sup D. Dressing - Upper Ligia E. Dressing - Lower Jamari F. Toileting sup - Sphincter Control G. Bladder control Ligia H. Bowel control Ligia - Transfers Control I. Bed/Chair/Wheelchair sup J. Toilet sup K. Tub/Shower Jamari - Locomotion L. Walk/Wheelchair (B) Jamari M. Stairs maxA - Communication N. Comprehension (B) Ligia O. Expression (B) Ligia - Social Cognition P. Social Interaction Ligia Q. Problem Solving Ligia R. Memory Ligia - Endurance Good - Balance Good - Safety Awareness Good QI SCORES: - Self-Care A. Eating 05-Setup or clean-up assistance B. Oral hygiene 05-Setup or clean-up assistance C. Toileting hygiene 04-Supervision or touching assistance E. Shower/bathe self 04-Supervision or touching assistance F. Upper body dressing 05-Setup or clean-up assistance G. Lower body dressing 04-Supervision or touching assistance H. Putting on/taking off footwear 04-Supervision or touching assistance - Mobility A. Roll left and right 04-Supervision or touching assistance B. Sit to lying 04-Supervision or touching assistance C. Lying to sitting on side of bed 04-Supervision or touching assistance D. Sit to stand 04-Supervision or touching assistance E. Chair/kit-td-frdgy transfer 04-Supervision or touching assistance F. Toilet transfer 04-Supervision or touching assistance G. Car transfer 88-Not attempted due to medical condition or safety concerns I. Walk 10 feet 04-Supervision or touching assistance J. Walk 50 feet with two turns 04-Supervision or touching assistance K. Walk 150 feet 04-Supervision or touching assistance L. Walking 10 feet on uneven surfaces 88-Not attempted due to medical condition or safety concerns M. 1 step (curb) 88-Not attempted due to medical condition or safety concerns N. 4 steps 88-Not attempted due to medical condition or safety concerns O. 12 steps 88-Not attempted due to medical condition or safety concerns P. Picking up object 04-Supervision or touching assistance R. Wheel 50 feet with two turns 09-Not applicable S. Wheel 150 feet 09-Not applicable - Bladder and Bowel Bladder continence 2-Incontinent less than daily Bowel continence 0-Always continent - Endurance Fair - Balance Fair - Safety Awareness Fair CURRENT [facility]. DEFICITS: Self-Care, Mobility, Endurance, Balance, and Safety Awareness SIGNATURE PANEL: (CDT)
[2022-01-02] MEDS: ATORVASTATIN 20 MG TAB PO SCH (19:54)
[2022-01-02] MEDS: MIDODRINE HCL 5 MG TABLET PO SCH (19:55)
[2022-01-03 05:01] LABS: Hematocrit 42.7 % (39.6-49.0); Lymphocytes % 27.2 % (15.3-44.8); MCV 95.2 fL (80-100); MPV 8.4 fL (7.6-11.3); RBC Red Blood Cell Count 4.49 M/uL (4.33-5.43)
[2022-01-03] MEDS: carvediloL 12.5 MG TAB PO SCH ×2 (05:16→16:57)
[2022-01-03 05:17] LABS: Albumin 2.8 g/dL (3.4-5.0); Magnesium 2.3 mg/dL (1.8-2.4); Potassium 4.4 mmol/L (3.5-5.1); Prealbumin 21.4 mg/dL (20-40)
[2022-01-03] MEDS: MIDODRINE HCL 5 MG TABLET PO SCH ×2 (07:26→20:08)
[2022-01-03] MEDS: APIXABAN 2.5 MG TABLET PO SCH ×2 (07:27→20:08)
[2022-01-03] MEDS: ENSURE HIGH PROTEIN 237 ML CAN PO SCH ×2 (07:27→20:08)
[2022-01-03] MEDS: THIAMINE HCL 100 MG TABLET PO SCH (07:27)
[2022-01-03] MEDS: FOLIC ACID 1 MG TABLET PO SCH (07:27)
[2022-01-03] MEDS: CLOPIDOGREL 75 MG TABLET PO SCH (07:27)
[2022-01-03] MEDS: ASPIRIN EC 81 MG TAB PO SCH (07:27)
--- NOTE | 2022-01-03 17:28 | R.PN ---
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 SUBJECTIVE: Pt denied any Shortness of Breath. Pt denied any depression. WBC 3.6, Hgb 14.3, prealbumin 21.4. Ambulated 1000' with contact guard assistance using a rolling walker. Blood pressure dropped from 140/77, pulse 72 to 61/44, pulse 71 going from lying to standing. He was symptomatic. Will place abdominal binder, JAYCEE hose to above the knee and midodrine 5 mg twice daily. VITAL SIGNS Temperature: 97.6 F SBP/DBP: 162/72 Pulse: 57 Resp: 16 Orthostatic hypotension, standing 1125/64, pulse 70, standing 80/52, pulse 89. Patient was symptomati c. Use abdominal binder and thigh high JAYCEE hose. MEDICATION ALLERGIES: No Known Drug Allergies (NKDA) ENVIRONMENTAL ALLERGIES: - Substance Allergies None Known - Other Allergies None Known NURSING: - Shower allowing shower - Bladder care per protocol - Skin care per protocol PRECAUTIONS: - Fall Precaution Bed alarm TABS alarm Wheel chair alarm - DVT Risk due to restricted mobility and age - Incontinence Bladder Incontinence - Skin Breakdown Risk due to restricted mobility and age ACTIVITIES OOB only with supervision THERAPIES: - Dietary and Nutrition Adequate Nutrition. Nutritional Education. Nutritional Supplements. - Occupational Therapy Cognitive Retraining. Patient needs Occupational Therapy for a daily minimum of 1.5 hours at least 5 out of 7 days, to improve Activities of Daily Living, including: Eating, Grooming, Bathing, Dressing, Toileting, Toilet Transfers, Community Reintegration, Higher functional activities, Adaptive Equipme nt, Splinting, Household Tasks, and Other activities as determined. Visual Perceptual Training. - Speech Therapy Cognitive Training. Expressive Language Skills. Memory Strategies. Patient needs Speech Therapy for a daily minimum of 0.5 hours at least 5 out of 7 days, to improve: Swallowing, Cognition, Language Ski lls, and Compensatory Strategies. Receptive Language Skills. Speech Intelligibility Training. - Physical Therapy Patient needs Physical Therapy for a daily minimum of 1.5 hours at least 5 out of 7 days, to improve: Mobility, Strengthening, Transfers, Stretching, ROM, Endurance, Ability to manage stairs, Gait, and Balance. PHYSICAL EXAM - Gen Alert and awake Lying in bed No apparent distress Oriented to: person, time, and place - Skin No skin breakdown. Normacephalic - Eyes No abnormalities - ENMT No abnormalities - Neck No abnormalities - CVS RRR - Chest No abnormalities - Resp No wheezing - Abd Soft - GI Non distended Deferred - No abnormalities - Ext No significant edema - MSK 4+/5 weakness in right upper and lower extremities - Neuro 4/5 strength right upper and lower extremities. - Psych No abnormalities ASSESSMENT: On 12/26/2021 Pt. presented to [facility] with sudden onset of right-side weakness.Pt. is a 81 yo male of unknown race.On 12/26/2021 he was admitted to [facility] with diagnosis Ce rebral infarction, unspecified (I63.9).His impairment category is Stroke 01 - Right Body (Left Brain ) (01.2).Pre-morbidly, Pt. was independent/mod-I in Locomotion and Self-Care; and he had good Enduran ce, Balance, Safety Awareness, Transfers Control, Sphincter Control, and Communication.Currently, he has deficits of Locomotion, Safety Awareness, Balance, Transfers Control, Sphincter Control, Self-Car e, Endurance, and Communication.Pt. is now referred to [facility] for acute in -patient rehabilitation in order to maximize patient's functional independence in activities of daily living, strength, ROM, and mobility.- Rehab Goal Patient has realistic goal of being discharged at assistance level 6-Ligia to reside at Home with Pt self. MDM/PLAN: - Physical Therapy Gait dysfunction - to improve, our physical therapists will perform initial evaluation of pt's statu s upon admission and devise an individualized program for Gait Training, and Wheel Chair mobility Inability to transfer - to improve, our physical therapists will perform initial evaluation of pt's status upon admission and devise an individualized program for Bed mobility Need for home safety evaluation - to improve, our physical therapists will perform initial evaluatio n of pt's status upon admission and devise an individualized program for Home Evaluation Need in caregiver upon discharge - to improve, our physical therapists will perform initial evaluati on of pt's status upon admission and devise an individualized program for Caregiver Training New precaution - to improve, our physical therapists will perform initial evaluation of pt's status upon admission and devise an individualized program for Patient precaution education Edema - to improve, our physical therapists will perform initial evaluation of pt's status upon admi ssion and devise an individualized program for Elevation Training, and Lymphedema Therapy Poor balance - to improve, our physical therapists will perform initial evaluation of pt's status up on admission and devise an individualized program for Balance Training Poor endurance - to improve, our physical therapists will perform initial evaluation of pt's status upon admission and devise an individualized program for Endurance Training Weakness - to improve, our physical therapists will perform initial evaluation of pt's status upon a dmission and devise an individualized program for Aquatic Therapy, Neuromuscular Reeducation, and Str engthening Achieving independence - to improve, our physical therapists will perform initial evaluation of pt's status upon admission and devise an individualized program for Community Reintegration Activities - Occupational Therapy ADL deficits - to improve, our occupation therapists will perform initial evaluation of pt's status upon admission and devise an individualized program for Bathing, Bed mobility, Community Reintegratio n, Cooking, Dressing, Eating, Fine Motor Skills, Grooming, Homemaking, Kitchen Mobility, Laundry, Pat ient Education, Safety Awareness, Splinting - Positioning, Transfers(Toilet, Tub, Shower), and Wheel Chair Management Need for caretaker grounds - to improve, our occupation therapists will perform initial evaluation of pt's status upon admission and devise an individualized program for Caregiver Training Weakness - to improve, our occupation therapists will perform initial evaluation of pt's status upon admission and devise an individualized program for Aquatic Therapy, Balance, Endurance, UE ROM, and UE strengthening - Other See attached MAR (Medication Administration Record) - Diet Type Continue Regular - Diet - Liquid Texture Continue Regular - Tube Feed Continue N/A - Incontinence Bladder Incontinence - Bladder care per protocol - DVT Risk due to restricted mobility and age - Skin Breakdown Risk due to restricted mobility and age - Weight Bearing Precaution WBAT right LE - Fall Precaution Bed alarm TABS alarm Wheel chair alarm - Skin care per protocol - Diet - Solid Texture Continue Regular - Shower allowing shower for Dementia, TBI, Stroke, or others FUNCTIONAL STATUS: UPDATED AT WEEKLY TEAM CONFERENCE - Bladder Same accident frequency: 7-Ind - No accidents in the past 7 days - Bowel Same accident frequency: 7-Ind - No accidents in the past 7 days - Walking Same score based on distance walked: 0(N/A) Same score based on distance walked: 3(>=150ft) - Wheelchair Same score based on distance traveled: 0(N/A) FUNCTIONAL STATUS: - Self-Care A. Eating Ind B. Grooming Ligia C. Bathing sup D. Dressing - Upper Ligia E. Dressing - Lower Jamari F. Toileting sup - Sphincter Control G. Bladder control Ligia H. Bowel control Ligia - Transfers Control I. Bed/Chair/Wheelchair sup J. Toilet sup K. Tub/Shower Jamari - Locomotion L. Walk/Wheelchair (B) Jamari M. Stairs maxA - Communication N. Comprehension (B) Ligia O. Expression (B) Ligia - Social Cognition P. Social Interaction Ligia Q. Problem Solving Ligia R. Memory Ligia - Endurance Good - Balance Good - Safety Awareness Good QI SCORES: - Self-Care A. Eating 05-Setup or clean-up assistance B. Oral hygiene 05-Setup or clean-up assistance C. Toileting hygiene 04-Supervision or touching assistance E. Shower/bathe self 04-Supervision or touching assistance F. Upper body dressing 05-Setup or clean-up assistance G. Lower body dressing 04-Supervision or touching assistance H. Putting on/taking off footwear 04-Supervision or touching assistance - Mobility A. Roll left and right 04-Supervision or touching assistance B. Sit to lying 04-Supervision or touching assistance C. Lying to sitting on side of bed 04-Supervision or touching assistance D. Sit to stand 04-Supervision or touching assistance E. Chair/ejb-pr-jaduq transfer 04-Supervision or touching assistance F. Toilet transfer 04-Supervision or touching assistance G. Car transfer 88-Not attempted due to medical condition or safety concerns I. Walk 10 feet 04-Supervision or touching assistance J. Walk 50 feet with two turns 04-Supervision or touching assistance K. Walk 150 feet 04-Supervision or touching assistance L. Walking 10 feet on uneven surfaces 88-Not attempted due to medical condition or safety concerns M. 1 step (curb) 88-Not attempted due to medical condition or safety concerns N. 4 steps 88-Not attempted due to medical condition or safety concerns O. 12 steps 88-Not attempted due to medical condition or safety concerns P. Picking up object 04-Supervision or touching assistance R. Wheel 50 feet with two turns 09-Not applicable S. Wheel 150 feet 09-Not applicable - Bladder and Bowel Bladder continence 2-Incontinent less than daily Bowel continence 0-Always continent - Endurance Fair - Balance Fair - Safety Awareness Fair CURRENT [facility]. DEFICITS: Self-Care, Mobility, Endurance, Balance, and Safety Awareness SIGNATURE PANEL: (CDT)
[2022-01-03] MEDS: ATORVASTATIN 20 MG TAB PO SCH (20:08)
[2022-01-04] MEDS: carvediloL 12.5 MG TAB PO SCH ×2 (05:14→17:43)
[2022-01-04] MEDS: FOLIC ACID 1 MG TABLET PO SCH (08:55)
[2022-01-04] MEDS: THIAMINE HCL 100 MG TABLET PO SCH (08:55)
[2022-01-04] MEDS: APIXABAN 2.5 MG TABLET PO SCH ×2 (08:55→19:51)
[2022-01-04] MEDS: CLOPIDOGREL 75 MG TABLET PO SCH (08:55)
[2022-01-04] MEDS: MIDODRINE HCL 5 MG TABLET PO SCH ×2 (08:55→19:51)
[2022-01-04] MEDS: ASPIRIN EC 81 MG TAB PO SCH (08:55)
[2022-01-04] MEDS: ENSURE HIGH PROTEIN 237 ML CAN PO SCH ×2 (08:56→19:51)
--- NOTE | 2022-01-04 09:41 | P.RH.PN ---
Estimated Length of Stay: 9 Expected Discharge Date: 01/06/22 Discharge Disposition Plan: Home Family Support: Yes Regulatory Affairs Manager Goal: Mobility, Transfers, Self Care Vital Signs: Last Vital Signs Temp 98.2 F 01/04/22 07:16 Pulse 58 01/04/22 07:16 Resp 16 01/04/22 07:16 BP 122/66 01/04/22 07:16 Pulse Ox 93 01/04/22 07:16 Laboratory: Laboratory Last Values WBC 3.6 K/uL (4.3-10.9) L 01/03/22 04:02 RBC 4.49 M/uL (4.33-5.43) 01/03/22 04:02 Hgb 14.3 g/dL (13.6-17.9) 01/03/22 04:02 Hct 42.7 % (39.6-49.0) 01/03/22 04:02 MCV 95.2 fL (80-100) 01/03/22 04:02 MCH 31.8 pg (27.0-35.0) 01/03/22 04:02 MCHC 33.5 g/dL (32.0-36.0) 01/03/22 04:02 RDW 14.3 % (12.1-15.2) 01/03/22 04:02 Plt Count 115 K/uL (152-406) L 01/03/22 04:02 MPV 8.4 fL (7.6-11.3) 01/03/22 04:02 Neutrophils % 52.4 % (41.7-73.7) 01/03/22 04:02 Lymphocytes % 27.2 % (15.3-44.8) 01/03/22 04:02 Monocytes % 15.1 % (3.3-12.3) H 01/03/22 04:02 Eosinophils % 4.3 % (0-4.4) 01/03/22 04:02 Basophils % 1.0 % (0-1.3) 01/03/22 04:02 Absolute Neutrophils 1.9 K/uL (1.8-8.0) 01/03/22 04:02 Segmented Neutrophils 34 % (40-80) L 12/29/21 06:45 Absolute Lymphocytes 1.0 K/uL (0.7-4.9) 01/03/22 04:02 Lymphocytes 31 % (15-42) 12/29/21 06:45 Monocytes 17 % (0-10) H 12/29/21 06:45 Absolute Monocytes 0.5 K/uL (0.1-1.3) 01/03/22 04:02 Eosinophils 3 % (0-3) 12/29/21 06:45 Absolute Eosinophils 0.2 K/uL (0-0.5) 01/03/22 04:02 Basophils 4 % (0-1) H 12/29/21 06:45 Absolute Basophils 0.0 K/uL (0-0.5) 01/03/22 04:02 Atypical Lymphocytes 11 % 12/29/21 06:45 Smudge Cells 1+ 12/29/21 06:45 Platelet Estimate Decr 12/29/21 06:45 Morphology Comment Not seen (NOT SEEN) 12/29/21 06:45 Sodium 136 mmol/L (136-145) 01/03/22 04:02 Potassium 4.4 mmol/L (3.5-5.1) 01/03/22 04:02 Chloride 101 mmol/L (98-107) 01/03/22 04:02 Carbon Dioxide 31 mmol/L (21-32) 01/03/22 04:02 Anion Gap 8.4 mEq/L (5.0-15.0) 01/03/22 04:02 BUN 24 mg/dL (7-18) H 01/03/22 04:02 Creatinine 1.12 mg/dL (0.55-1.3) 01/03/22 04:02 Est GFR (CKD-EPI) 67 ml/min (=/>90) L 01/03/22 04:02 Glucose 143 mg/dL (74-106) H 01/03/22 04:02 Calcium 8.9 mg/dL (8.5-10.1) 01/03/22 04:02 Magnesium 2.3 mg/dL (1.8-2.4) 01/03/22 04:02 Albumin 2.8 g/dL (3.4-5.0) L 01/03/22 04:02 Prealbumin 21.4 mg/dL (20-40) 01/03/22 04:02 Urine Color Yellow (Yellow) 12/29/21 09:44 Urine Appearance Clear (Clear) 12/29/21 09:44 Urine pH 7.0 (5.0-7.0) 12/29/21 09:44 Ur Specific [place] 1.020 (1.005-1.030) 12/29/21 09:44 Glucose (UA)(Auto) Negative (Negative) 12/29/21 09:44 Urine Ketones Negative (Negative) 12/29/21 09:44 Urine Blood Trace-intact (Negative) H 12/29/21 09:44 Urine Nitrite Negative (Negative) 12/29/21 09:44 Urine Bilirubin Negative (Negative) 12/29/21 09:44 Urine Urobilinogen 1.0 mg/dL (0.2-1.0) 12/29/21 09:44 Ur Leukocyte Esterase Negative (Negative) 12/29/21 09:44 Urine RBC <5 /HPF (NONE SEEN) 12/29/21 09:44 Urine WBC <5 /HPF (<5) 12/29/21 09:44 Ur Squamous Epith Cells <5 /HPF (NONE SEEN) 12/29/21 09:44 Ur Urothelial Cells Cancelled 12/29/21 08:45 Calcium Oxalate Crystal Cancelled 12/29/21 08:45 Uric Acid Crystals Cancelled 12/29/21 08:45 Triple Phos Crystals Cancelled 12/29/21 08:45 Other Crystals Cancelled 12/29/21 08:45 Amorphous Sediment Cancelled 12/29/21 08:45 Glitter Cells Cancelled 12/29/21 08:45 Urine Bacteria None seen /HPF (NONE SEEN) 12/29/21 09:44 Hyaline Casts Cancelled 12/29/21 08:45 Fine Granular Casts Cancelled 12/29/21 08:45 Coarse Granular Casts Cancelled 12/29/21 08:45 Waxy Casts Cancelled 12/29/21 08:45 RBC Casts Cancelled 12/29/21 08:45 WBC Casts Cancelled 12/29/21 08:45 Urine Mucus Cancelled 12/29/21 08:45 Urine Other Cancelled 12/29/21 08:45 Urine Trichomonas Cancelled 12/29/21 08:45 Urine Yeast Cancelled 12/29/21 08:45 Ur Yeast w Hyphae Cancelled 12/29/21 08:45 Urine Yeast (Budding) Cancelled 12/29/21 08:45 Urine Sperm Cancelled 12/29/21 08:45 Urine Culture Reflexed Not needed 12/29/21 09:44 Urine Total Volume Cancelled 12/29/21 08:45 Urine Total Protein Negative (Negative) 12/29/21 09:44 SARS-CoV-2 Rap RNA(RT-PCR) Negative (NEGATIVE) 01/02/22 10:25 Weight: 195 lb 1.6 oz Wound Present: No Closed Surgical Incision Present: No Negative Pressure Wound Therapy Present: No Physician Update: Labs reviewed. Home health with Thu. Supervisioin bed mobility, 500' with rolling walker, SBA. 15 steps with bilateral hand rails. CGA. Independent with upper body dressing, grooming. His BP drops significantly with standing. TEDs and abdominal binders when ambulating. Functional Improvement: pt is completing task with good physical ability, however continues to require VC on posture and pacing. pt continues to present with differing BP issues. Summary: Patient's care plan and bed bug exterminator goals have been reviewed and revised as necessary. Please see the Rehabilitation Signature page for all necessary signatures.
[2022-01-04] MEDS: ATORVASTATIN 20 MG TAB PO SCH (19:51)
[2022-01-05] MEDS: carvediloL 12.5 MG TAB PO SCH ×2 (05:22→17:05)
[2022-01-05 05:27] VITALS: BMI 19.4
[2022-01-05] MEDS: APIXABAN 2.5 MG TABLET PO SCH ×2 (07:46→20:02)
[2022-01-05] MEDS: FOLIC ACID 1 MG TABLET PO SCH (08:02)
[2022-01-05] MEDS: ASPIRIN EC 81 MG TAB PO SCH (08:03)
[2022-01-05] MEDS: CLOPIDOGREL 75 MG TABLET PO SCH (08:03)
[2022-01-05] MEDS: THIAMINE HCL 100 MG TABLET PO SCH (08:03)
[2022-01-05] MEDS: MIDODRINE HCL 5 MG TABLET PO SCH ×2 (08:04→20:01)
[2022-01-05] MEDS: ENSURE HIGH PROTEIN 237 ML CAN PO SCH ×2 (08:08→20:01)
[2022-01-05] MEDS: ATORVASTATIN 20 MG TAB PO SCH (20:02)
[2022-01-05 20:29] VITALS: TEMP 97.9
[2022-01-06] MEDS: carvediloL 12.5 MG TAB PO SCH (05:09)
[2022-01-06] MEDS: ASPIRIN EC 81 MG TAB PO SCH (08:13)
[2022-01-06] MEDS: THIAMINE HCL 100 MG TABLET PO SCH (08:14)
[2022-01-06] MEDS: FOLIC ACID 1 MG TABLET PO SCH (08:14)
[2022-01-06] MEDS: MIDODRINE HCL 5 MG TABLET PO SCH (08:14)
[2022-01-06] MEDS: CLOPIDOGREL 75 MG TABLET PO SCH (08:15)
[2022-01-06] MEDS: APIXABAN 2.5 MG TABLET PO SCH (08:15)
[2022-01-06 08:26] VITALS: BP 120/61
[2022-01-06] MEDS: ENSURE HIGH PROTEIN 237 ML CAN PO SCH (09:12)
== END 2022-01-06 12:45 | disposition home health service (06) | DRG 57 ==
LOC: 5TH 14:51
PROVIDERS: ADMIT Psychiatry & Neurology Neurology with Special Qualifications in Child Neurology; ATTEND Psychiatry & Neurology Neurology with Special Qualifications in Child Neurology
DX: I69.351 Hemiplegia and hemiparesis following cerebral infarction affecting right dominant side (principal); I10 Essential (primary) hypertension; Z87.891 Personal history of nicotine dependence; M06.9 Rheumatoid arthritis, unspecified; F10.20 Alcohol dependence, uncomplicated; Z94.7 Corneal transplant status; Z20.822 Contact with and (suspected) exposure to COVID-19
CPT/HCPCS: 36415; 80048; 81003; 81015; 82040; 83735; 84134; 85025; 87086; 87088; 92507; 92523; 93005; 97110; 97116; 97161; 97165; 97530; 97542; J1650; Q0162; U0003

== ENCOUNTER 2022-02-04 17:34 | Emergency (ER) | payer OTHER ==
--- NOTE | 2022-02-04 21:02 | RAD REPORT ---
EXAM DESCRIPTION: CT - [id number] - 02/04/2022 8:44 pm CLINICAL HISTORY: Trauma, head and neck injury. dizziness COMPARISON: Brain W/Wo Cont dated 12/26/2021 TECHNIQUE: Axial 5 mm thick images of the head were obtained. Axial 2 mm thick images of the cervical spine were obtained with sagittal and coronal reconstruction images generated and reviewed. All CT scans are performed using dose optimization technique as appropriate and may include automated exposure control or mA/KV adjustment according to patient size. FINDINGS: CT HEAD WITHOUT CONTRAST: Acute left-sided subdural hematoma is present measuring 10 mm in maximum thickness. Mild phvu-kv-fnfo t midline shift is present measuring 5 mm.Mild generalized brain atrophy is present with mild periven tricular and deep white matter chronic microvascular ischemic changes.20 mm old infarct left anterior basal ganglia. The paranasal sinuses and mastoids are clear.The calvarium is intact. CT CERVICAL SPINE WITHOUT CONTRAST: No fracture or subluxation.Moderate multilevel cervical spondylosisNo prevertebral soft tissues swell ing is identified. IMPRESSION: Acute left subdural hematoma measuring 10 mm in maximum thickness is present.Left-to-rig ht midline shift is present 5 mm. The findings were discussed with Dr Wiseman in the ER on 02/04/2022 at 8:57 p.m. by telephone.
[2022-02-04] MEDS ORDERED: LEVETIRACETAM 500 MG/5 ML VIAL IV ONE (21:34)
[2022-02-04] MEDS ORDERED: NA CHLORIDE 0.9% 100 ML ONE (21:34)
[2022-02-04 21:39] LABS: Absolute Lymphocytes (CBC) 0.8 K/uL (0.7-4.9); Hematocrit 43.1 % (39.6-49.0); Lymphocytes % 16.5 % (15.3-44.8); MCV 93.8 fL (80-100); MPV 7.9 fL (7.6-11.3); RBC Red Blood Cell Count 4.59 M/uL (4.33-5.43)
[2022-02-04 21:40] LABS: Protime INR 1.07
[2022-02-04 21:52] LABS: SARS-CoV-2 Antigen Rapid Res Negative (Negative)
[2022-02-04 21:56] LABS: Bilirubin Direct 0.3 mg/dL (0-0.2); Bilirubin Total 0.9 mg/dL (0.2-1.0); Magnesium 2.2 mg/dL (1.8-2.4); Potassium 4.4 mmol/L (3.5-5.1); Protein, Total 6.9 g/dL (6.4-8.2); Troponin High Sensitivity 6.2 pg/mL (<58.9)
--- NOTE | 2022-02-04 21:56 | RAD REPORT ---
EXAM DESCRIPTION: RAD - Chest Single View - 02/04/2022 9:29 pm CLINICAL HISTORY: dizziness Chest pain. COMPARISON: Chest Single View dated 12/26/2021; Chest Single View dated 04/07/2018; CHEST SINGLE VIEW dated 02/01/2015 FINDINGS: Portable technique limits examination quality. Hhyk-lv-[id number] pulmonary edema suspected. The heart mildly enlarged in size. No displaced fractures . IMPRESSION: Jfry-bb-cdlcbyva CHF versus volume overload.
[2022-02-04] MEDS ORDERED: METOPROLOL TARTRATE 5 MG/5 ML INJ IV ONE (22:33)
[2022-02-04] MEDS ORDERED: NA CHLORIDE 0.9% 250 ML ONE (23:52)
[2022-02-05 04:17] VITALS: O2SAT 100
[2022-02-05 04:45] VITALS: TEMP 98.3
[2022-02-05 04:47] VITALS: BP 133/68
--- NOTE | 2022-02-05 08:48 | EKG ---
Test Date: 2022-02-04 Test Time: 21:41:08 User Interface Engineer: MEASUREMENT RESULTS: Intervals: Rate: 62 [place]: 148 QRSD: 110 QT: 446 QTc: 452 [place]: P: 56 [place]: 148 QRS: 6 T: 54 INTERPRETIVE STATEMENTS: Sinus rhythm with premature atrial complexes Incomplete right bundle branch block Borderline ECG Compared to ECG 01/01/2022 13:38:39 Atrial premature complex(es) now present Incomplete right bundle-branch block now present Right bundle-branch block no longer present Electronically Signed On 02-05-22 08:46:41 CDT by Erik Marques
--- OUTSIDE RECORDS SUMMARY | 2022-02-05 10:57 | XMS REPORT | Continuity of Care Document ---
:1940 Author Organization [facility] t Address [address] [place] [address] Care Team Providers Name Role Phone MIKE STUART Attending Clinician Unavailable MARCELL HOLGUIN Attending Clinician Unavailable MARCELL HOLGUIN Attending Clinician Unavailable Jaymie Attending Clinician Unavailable Marcell Holguin MD Attending Clinician Taina Borges MD Attending Clinician IMKE STUART Admitting Clinician Unavailable MARCELL HOLGUIN Admitting Clinician Unavailable Jaymie Admitting Clinician Unavailable Payers Payer Name Policy Type Policy Number Effective Date Expiration Date S yoseph MEDICARE PART A [id number] \T\ [id number] - MEDICARE OPEN ACCESS PLUS [id number] - CIGNA HMO/QPOS/SELECT - [id number] 2013 AETNA 00:00:00 MEDICARE A B [id number] 2007 00:00:00 CIGNA [id number] 2016 HMO/POS/OPEN 00:00:00 ACCESS MEDICARE B-[place]: [id number] 2007 [employer] SOLUTIONS 00:00:00 AETNA - MEBS - [id number] 2003 CHOICE - NAP (POS 00:00:00 II) Problems Condition Condition Condition Status Onset Resolution Last Treating Co mments Source Name Details Category Date Date Treatment Clinician Date Burn Burn Disease Active [facility] 8-18 College 00:00: of 00 Medicin e Back pain Back pain Disease Active [facility] 4-07 College 00:00: of 00 Medicin e 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[facility] alcohol 2-10 College use use 00:00: of 00 Medicin e High risk High risk Disease Active 2013-07 [facility] medication medication 07-12 Co llege use use 00:00: of 00 Medicin e Psoriatic Psoriatic Disease Active [facility] arthritis arthritis 13 [facility] (HCCode) (HCCode) 00:00: of 00 Medicin e Allergies, Adverse Reactions, Alerts Allergy Allergy Status Severity Reaction(s) Onset Inactive Treating Comm ents Source Name Type Date Date Clinician SULFA Allergy Active Hives [facility]03 [facility]OT 00 [facility]) Sulfa Propensi Active Hives [facility] Antibiot ty to 6 College ics adverse 00:00: of reaction 00 Medicin s to e drug Social History Social Habit Start Date Stop Date Quantity Comments Source Sex Assigned At [facility] llege of Medicine Tobacco use and 2020-04-12 2020-04-12 Never used [facility] Co llege exposure 00:00:00 00:00:00 of Medicine Alcohol intake 2020-04-12 2020-04-12 Ex-drinker [facility] Col lege 00:00:00 00:00:00 (finding) of Medicine Alcohol Comment 2018-11-03 2018-11-03 drinks non [facility] Co llege 00:00:00 00:00:00 alcoholic beer of Medicin e Smoking Status Start Date Stop Date Source Former smoker 2020-04-12 00:00:00 2020-04-12 00:00:00 [facility] C ollege of Medicine Medications Ordered Filled Start Stop Current Ordering Indication Dosage Frequency Signature Comments Components Source Medication Medication Date Date Medication? Clinician (SIG) Name Name methotrexat Yes [id number] TAKE 4 Michel e 2.5 MG 9-30 TABLETS BY Colle ge tablet 00:00: MOUTH ONCE of 00 A WEEK Medicin e folic acid Yes [id number] 1mg Take 1 Tab Michel (FOLVITE) 1 5-26 by mouth Juan [facility]ge MG tablet 00:00: daily. of 00 Medicin e gabapentin Yes [id number] TAKE ONE [facility] (NEURONTIN) 5-26 CAPSULE BY Co llege 300 MG 00:00: MOUTH of capsule 00 NIGHTLY Medicin e carvedilol Yes 12.5mg Take 12.5 [facility] (COREG) 8-27 mg by [place] 12.5 MG 18:03: mouth 2 of tablet 10 times Medicin daily e (with meals). carvedilol Yes 12.5mg Take 12.5 [facility] (COREG) 8-27 mg by [place] 12.5 MG 18:03: mouth 2 of tablet 10 times Medicin daily e (with meals). gabapentin Yes [id number] TAKE ONE Michel (NEURONTIN) 8-27 CAPSULE BY Co llege 300 MG 00:00: MOUTH of capsule 00 NIGHTLY Medicin e folic acid Yes [id number] 1mg Take 1 Tab [facility] (FOLVITE) 1 8-27 by mouth [facility] MG tablet 00:00: daily. of 00 Medicin e methotrexat Yes [id number] 10mg Take 4 Michel e 4-30 Tabs by [place] (RHEUMATREX 00:00: mouth of ) 2.5 MG 00 every 7 Medicin tablet days. e folic acid 2019- No [id number] 1mg Take 1 Tab [facility] (FOLVITE) 1 4-30 -27 by mouth Col lege MG tablet 00:00: 00:00 daily. of 00 :00 Medicin e gabapentin 2019- No [id number] TAKE ONE Michel (NEURONTIN) 4-30 - CAPSULE BY [facility] self 300 MG 00:00: 00:00 MOUTH of capsule 00 :00 NIGHTLY Medicin e Vital Signs Vital Name Observation Time Observation Value Comments Source HEIGHT 2020-08-14 11:13:00 195.6 cm WEIGHT 2020-08-14 11:13:00 95.255 kg Systolic blood 2019-03-02 18:03:00 119 mm[Hg] [facility] pressure Medicine Diastolic blood 2019-03-02 18:03:00 74 mm[Hg] [facility] pressure Medicine Heart rate 2019-03-02 18:03:00 65 /min [facility] Body temperature 2019-03-02 18:03:00 36.78 Evelyne [facility] Respiratory rate 2019-03-02 18:03:00 17 /min [facility] Body height 2019-03-02 18:03:00 194.3 cm [facility] Body weight 2019-03-02 18:03:00 93.078 kg [facility] BMI 2019-03-02 18:03:00 24.65 kg/m2 [facility] Oxygen saturation in 2019-03-02 18:03:00 97 /min [facility] Arterial blood by [facility] Pulse oximetry Procedures Procedure Date / Time Performing Clinician Source Performed COMPREHENSIVE METABOLIC 2019-03-02 18:45:00 Tania Borges [facility] C-REACTIVE PROTEIN 2019-03-02 18:45:00 Tania Borges [facility] CBC W/AUTO DIFF WITH 2019-03-02 18:45:00 Tania Borges [facility] SEDIMENTATION RATE 2019-03-02 18:45:00 Tania Borges [facility] Plan of Care Planned Activity Planned Date Details Comments Source Future Scheduled Test MEDICARE AWV [code = [facility] MEDICARE AWV] Medicine Future Scheduled Test TETANUS SHOT (ADULT) [facility] [code = TETANUS SHOT Medicin e (ADULT)] Future Scheduled Test FALL SCREEN [code = [facility] FALL SCREEN] Medicine Future Scheduled Test PNEUMOVAX >=65 [facility] (PPSV23) [code = Medicine PNEUMOVAX >=65 (PPSV23)] Future Scheduled Test PREVNAR >= 65 (PCV13) [facility] [code = PREVNAR >= 65 Medici ne (PCV13)] Future Scheduled Test FLU VACCINE > 6 [facility] of MONTHS [code = FLU Medicine VACCINE > 6 MONTHS] Future Scheduled Test TETANUS SHOT (ADULT) [facility] [code = TETANUS SHOT Medicin e (ADULT)] Future Scheduled Test ZOSTER VACCINE (1 of [facility] 2) [code = ZOSTER Medicine VACCINE (1 of 2)] Future Scheduled Test FALL SCREEN [code = [facility] FALL SCREEN] Medicine Future Scheduled Test PNEUMOVAX >=65 [facility] (PPSV23) [code = Medicine PNEUMOVAX >=65 (PPSV23)] Future Scheduled Test FLU VACCINE > 6 [facility] MONTHS [code = FLU Medicine VACCINE > 6 MONTHS] Encounters Start End Encounter Admission Attending Care Care Encounter Source Date/Time Date/Time Type Type Clinicians Facility Department ID 2022-02-05 Inpatient E SADE, [facility] [id number] [facility] 06:03:00 MIKE 2021-04-12 Outpatient HERNESTO [facility] Surgery [id number] SLE 10:11:00 MARCELL 2021-02-14 2021-02-14 Outpatient HILDA HOLGUIN [facility] [id number] [facility] 10:58:59 12:37:14 MARCELL [place] ge of Medicin e 2020-08-14 2020-08-14 Outpatient [facility] [id number] SLE 00:00:00 00:00:00 2020-05-24 2020-05-24 Outpatient Saravanan_R [facility]G MMG [id number] [place] 02:29:00 02:29:00 1118 Medical Group 2020-04-12 2020-04-12 Office HILDA Holguin [id number] [facility] 10:14:17 10:19:17 Visit Marcell P AMBULATOR [id number] College Y 0.2.7.2.686 of [id number] Medi nj 300 e 2019-03-02 2019-03-02 Office HILDA Borges [id number] [facility] 12:55:07 14:43:54 Visit Tania M AMBULATOR 350.1.13.21 College Y 0.2.7.2.686 of [id number] Medi nj 370 e 2016-07-18 2016-07-18 Outpatient Saravanan_R MMG MMG [id number] [place] 10:41:00 10:41:00 0615 Medical Group Results Test Description Test Time Test Comments Results Result Comments Source SEDIMENTATION RATE MODIFIED SHAGUFTA 2019-03-03 10:51:06 Test Item Value Reference Range Interpretation Comme nts ERYTHROCYTE SEDIMENTATION RATE See_Comment Unless Otherwise Indicated, All (test code = 4537-7) Testing Performed At: [facility], [address] [place], [place] [address] Power Sewing Machine Operator: Yosi Ayon M.D. CLIA Number [id number] Cap Accreditation [place] o. [id number] [Automated mess age] The system which generated this result transmitted reference range : 0 - 15 MM/HOUR. The reference range was not used to interpret this result as normal/abnormal . [facility] [id number] 09:06:51 Test Item Value Reference Range Interpretation Comments C-REACTIVE PROTEIN (test See_Comment H Un less Otherwise code = 1988-5) Indicated, Al l Testing Perform ed At: [facility], [address] [place] [address] Laborator y Director: Yosi Ayon M.D. IA Number [id number] [employer] Acc[employer] N o. [id number] [Autom ated message] The sy stem which generated this result transmit ayse reference range : <0.5 MG/DL. The refe rence range was not u sed to interpret this result as normal/abnor mal. Lab Interpretation (test Abnormal code = 15252-0) [facility] [id number] 09:05:22 Test Item Value Reference Range Interpretation Comments GLUCOSE (test code = See_Comment [Autom ated message] 2345-7) The system [employer] generated this result transmitted ref erence range: [...] See_Comment [Au tomated message] 2160-0) The system [employer] generated this result transmitted ref erence range: 0.80 - 1 .40 MG/DL. The refe rence range was not u sed to interpret this result as normal/abnor mal. EGFR AA (test code = See_Comment [Autom ated message] 84510-3) The system [employer] generated this result transmitted ref erence range: >60 ML/MIN/1.73. Th e reference range was not used to int erpret this result as normal/abnormal . EGFR (test code = See_Comment [Automate d message] 98264-3) The system [employer] generated this result transmitted ref erence range: >60 ML/MIN/1.73. Th e reference range was not used to int erpret this result as normal/abnormal . BUN/CREAT RATIO (test See_Comment [Auto mated message] code = 3097-3) The system [employer] generated this result transmitted ref erence range: 6 - 28 R ATIO. The reference r joesph was not used to interpret this result as normal/abnor mal. SODIUM (test code = See_Comment L [Automa ayse message] 2951-2) The system [employer] generated this result transmitted ref erence range: 133 - 14 6 MEQ/L. The refe rence range was not u sed to interpret this result as normal/abnor mal. POTASSIUM (test code = See_Comment [Aut omated message] 2823-3) The system [employer] generated this result transmitted ref erence range: 3.5 - 5. 4 MEQ/L. The refe rence range was not u sed to interpret this result as normal/abnor mal. CHLORIDE (test code = See_Comment L [Auto mated message] 2075-0) The system [employer] generated this result transmitted ref erence range: 95 - 107 MEQ/L. The reference r joesph was not used to interpret this result as normal/abnor mal. CO2 (test code = See_Comment [Automated message] 1963-8) The system [employer] generated this result transmitted ref erence range: 19 - 31 MEQ/L. The reference r joesph was not used to interpret this result as normal/abnor mal. CALCIUM (test code = See_Comment [Autom ated message] 49375-6) The system [employer] generated this result transmitted ref erence range: 8.5 - 10 .5 MG/DL. The refe rence range was not u sed to interpret this result as normal/abnor mal. PROTEIN TOTAL (test See_Comment [Automa ayse message] code = 2885-2) The system [employer] generated this result transmitted ref erence range: 6.1 - 8. 3 G/DL. The reference r joesph was not used to interpret this result as normal/abnor mal. ALBUMIN (test code = See_Comment [Autom ated message] 02963-4) The system [facility] [facility] generated this result transmitted ref erence range: 3.5 - 5. 2 G/DL. The reference r joesph was not used to interpret this result as normal/abnor mal. GLOBULINS, SERUM, TOTAL See_Comment [Au tomated message] (test code = 14012-0) The sy stem which generated this result transmitted ref erence range: 1.9 - 3. 7 G/DL. The reference r joesph was not used to interpret this result as normal/abnor mal. A/G RATIO (test code = See_Comment [Aut omated message] 1759-0) The system [employer] [facility] [employer] [facility] generated this result transmitted ref erence range: 1.0 - 2. 6 RATIO. The refe rence range was not u sed to interpret this result as normal/abnor mal. BILIRUBIN TOTAL (test See_Comment [Auto mated message] code = 1975-2) The system [facility] generated this result transmitted ref erence range: <=1.2 MG /DL. The reference r joesph was not used to interpret this result as normal/abnor mal. ALKALINE PHOSPHATASE 77 U/L 40-125 (test code = 6768-6) AST (SGOT) (test code = 28 U/L 9-50 1920-8) ALT (SGPT) (test code = 6 U/L 5-50 Unl ess Otherwise 1744-2) Indicated, All Testing Performed At: [facility], [address] [place] [address] Laborator y Director: Yosi Ayon M.D. IA Number [id number] Cap Accreditation [place] o. [id number] Lab Interpretation Abnormal (test code = 65974-5) [facility] W/AUTO DIFF WITH [id number] 08:08:35 Test Item Value Reference Range Interpretation Comments WHITE BLOOD CELL COUNT See_Comment [Aut omated message] (test code = 16413-7) The sy stem which generated this result transmitted ref erence range: 4.0 - 11 .0 K/UL. The refer ence range was not u sed to interpret this result as normal/abnor mal. RED BLOOD CELL COUNT See_Comment [Autom ated message] (test code = 07900-4) The sy stem which generated this result [...] HEMATOCRIT (test code = 41.3 % 37-49 17280-7) MEAN CORPUSCULAR VOLUME 94.7 fL 80-100 (test code = 04520-1) MEAN CORPUSCULAR 32.8 PG 27-34 HEMOGLOBIN (test code = 36979-9) MEAN CORPUSCULAR See_Comment [Automated message] HEMOGLOBIN CONC (test The sy stem which code = 49660-4) generated th is result transmitted ref erence range: 32.0 - 3 5.5 G/DL. The refer ence range was not u sed to interpret this result as normal/abnor mal. RED CELL DISTRIBUTION 13.6 % 11-15 WIDTH (test code = 10359-1) NEUTROPHILS % (test code 58.3 % 40-74 = 17681-2) LYMPHOCYTES % (test code 21.5 % 19-48 = 12373-9) MONOCYTES % (test code = 13.2 % 4-13 H 68626-9) EOSINOPHILS % (test code 5.6 % 0-7 = 39962-4) BASOPHILS % (test code = 1.4 % 0-2 16590-0) PLATELET COUNT (test See_Comment Unless Otherwise code = 34179-6) Indicated, A ll Testing Perform ed At: [facility] [employer], [address] [place] [address] Laborator y Director: Yosi Ayon M.D. CLIA Number [id number] Cap Accreditation N o. [id number] [Autom ated message] The sy stem which generated this result transmit ayse reference range : 130 - 400 K/UL. The reference range was not used to int erpret this result as normal/abnormal . Lab Interpretation (test Abnormal code = 16343-7) [facility]
--- NOTE | 2022-02-06 09:50 | ER ---
Nurse's Notes [facility] Name: Rufino Sanders Age: 81 yrs Sex: Male : 1940 Arrival Date: 02/04/2022 Time: 17:35 Bed 26 Private MD: Josh Mckeon T Diagnosis: Traumatic subdural hemorrhage Presentation: 02/04 17:49 Chief complaint: Patient states: pt reports getting up and got dizzy, braced self and schafer cause skin tear to left arm. pt is on blood thinner and there was a lot of blood at the time. 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 Coronavirus screen: Vaccine status: Patient reports receiving the 2nd dose of the covid vaccine. Ebola Screen: Patient denies travel to an Ebola-affected area in the 21 days before illness onset. Initial Sepsis Screen: Does the patient meet any 2 criteria? No. Patient's initial sepsis screen is negative. Does the patient have a suspected source of infection? No. Patient's initial sepsis screen is negative. Risk Assessment: Do you want to hurt yourself or someone else? Patient reports no desire to harm self or others. Onset of symptoms was February 04, 2022. 17:49 Method Of Arrival: Wheelchair schafer 17:49 Acuity: FABIEN 3 schafer Historical: - Allergies: 17:51 Sulfa (Sulfonamide Antibiotics); schafer - Immunization history:: Adult Immunizations up to date. - Social history:: Smoking status: Patient denies any tobacco usage or history of. Screenin:20 Abuse screen: Denies threats or abuse. Nutritional screening: No deficits noted. bb Tuberculosis screening: No symptoms or risk factors identified. Fall Risk Secondary diagnosis (15 points) impaired mobility, IV access (20 points). Ambulatory Aid- None/Bed Rest/Nurse Assist (0 pts). Gait- Weak (10 pts.). Mental Status- Oriented to own ability (0 pts). Total Moore Fall Scale indicates High Risk Score (45 or more points). Fall prevention measures have been instituted. Side Rails Up X 2 Family Present and informed to notify staff if the need to leave the bedside. Assessment: 20:20 General: Appears in no apparent distress. Behavior is calm, cooperative. Pain: Denies bb pain. Neuro: Level of Consciousness is awake, alert, obeys commands, Oriented to person, place, situation. Cardiovascular: Capillary refill < 3 seconds Patient's skin is warm and dry. Respiratory: Respiratory effort is even, unlabored. GI: No signs and/or symptoms were reported involving the gastrointestinal system. Derm: Skin is fragile, has skin tears on left forearm Skin is pink, warm \T\ dry. Musculoskeletal: Circulation, motion, and sensation intact. 21:32 Reassessment: Patient is alert, oriented x 3, equal unlabored respirations, skin bb warm/dry/pink. family at bedside awaiting acceptance to facility for higher level of care. 22:33 Reassessment: Patient is alert, oriented x 3, equal unlabored respirations, skin bb warm/dry/pink. awaiting administration of platelets prior to transfer to [facility] for higher level of care. 22:35 Reassessment: report given to Luma SHAFER for [facility]. bb 02/05 00:47 Reassessment: No changes from previously documented assessment. Patient and/or family sm5 updated on plan of care and expected duration. Pain level reassessed. Vital Signs: 02/04 17:49 BP 103 / 55; Pulse 83; Resp 17; Temp 97.2(T); Pulse Ox 100% ; Weight 90.72 kg; Height 6 schafer ft. 5 in. (195.58 cm); 20:21 BP 155 / 81; Pulse 60; Resp 16 S; Pulse Ox 100% on R/A; bb 21:45 BP 147 / 69; Pulse 67; Resp 17; Temp 98.3(O); Pulse Ox 100% on R/A; wm 22:32 BP 133 / 68; Pulse 64; Resp 14 S; Pulse Ox 100% on R/A; bb 17:49 Body Mass Index 23.72 (90.72 kg, 195.58 cm) schafer NIH Stroke Scale Scores: 20:35 NIHSS Score: 0 cp ED Course: 17:35 Patient arrived in ED. am2 17:35 Josh Mckeon MD is Private Physician. am2 17:51 Triage completed. schafer 19:59 Bishnu Anderson PA is PHCP. cp 19:59 Gabriel Wiseman MD is Attending Physician. cp 20:19 Tia Bajwa, HOLLIS is Primary Nurse. bb 20:20 Patient has correct armband on for positive identification. Bed in low position. Call bb light in reach. Side rails up X 1. Adult w/ patient. Pulse ox on. NIBP on. Warm blanket given. 20:46 CT Head C Spine In Process Unspecified. EDMS 21:20 Inserted saline lock: 22 gauge in right antecubital area, using aseptic technique. wm Blood collected. 21:21 initiated a transfer with Magali Allen from [facility]. mw2 21:31 XRAY Chest (1 view) In Process Unspecified. EDMS 21:31 SARS RAPID Sent. wm 21:31 EKG done, COVID swab sent to lab. wm 21:35 Connected Bishnu BOWSER with the Doctor from [facility]. mw2 21:42 administrative approval given by Magali Allen/ patient has been accepted to [address] to the ER/ Dr. Piper accepted the patient in transfer/ report to be called to [phone]. 22:02 Initial lab(s) drawn, by nd, sent to lab. 22:03 Type And Screen Sent. 22:32 Inserted saline lock: 18 gauge in left antecubital area, using aseptic technique. bb 02/05 00:12 [facility] ETA 30 - 45 minutes. mw2 00:47 Arm band placed on left wrist. sm5 00:47 No provider procedures requiring assistance completed. Patient transferred, IV remains sm5 in place. Administered Medications: 02/04 21:32 Drug: Keppra (levETIRAcetam) 1000 mg Route: IV; Rate: calculated rate; Site: right bb antecubital; 21:47 Follow up: IV Status: Completed infusion; IV Intake: 100ml bb 02/05 00:47 Not Given (Hemodynamic Parameters): Lopressor (metoprolol) 2.5 mg IVP every 15 minutes; sm5 Hold for SBP < 100 or HR < 60. x3 Medication: 00:47 VIS not applicable for this client. sm5 Intake: 02/04 21:47 IV: 100ml; Total: 100ml. bb Outcome: 21:47 ER care complete, transfer ordered by MD. rich 02/05 00:47 Transferred by ground EMS to [facility], Transfer form completed. X-rays sent sm5 w/ patient. Condition: stable Instructed on the need for transfer. 00:48 Patient left the ED. sm5 NIH Stroke Scale - NIH Stroke Score Date: 02/04/2022 Time: 20:35 Total Score = 0 1a. Level of Consciousness (LOC) - 0(Alert) 1b. Level of Consciousness (LOC) (Month \T\ Age) - 0(Both) 1c. LOC Commands (Open \T\ Closes Eyes/Ct Manager) - 0(Both) 2. Best Gaze (Lateral Gaze Paresis) - 0(Normal) 3. Visual Field Loss - 0(No visual loss) 4. Facial Palsy - 0(Normal) 5a. Left Arm: Motor (10-second hold) - 0(No drift) 5b. Right Arm: Motor (10-second hold) - 0(No drift) 6a. Left Leg: Motor (5-second hold - always test supine) - 0(No drift) 6b. Right Leg: Motor (5-second hold - always test supine) - 0(No drift) 7. Limb Ataxia (finger/nose \T\ heel/magana - test with eyes open) - 0(Absent) 8. Sensory Loss (pinprick arms/legs/face) - 0(Normal) 9. Best Language: Aphasia (description/naming/reading) - 0(No aphasia) 10. Dysarthria (speech clarity - read or repeat words) - 0(Normal) 11. Extinction and Inattention (visual/tactile/auditory/spatial/personal) - 0(No abnormality) Initials: cp Signatures: Dispatcher [employer] Tia Celeste RN RN bb Page, Corey, PA PA cp Antoinette Layton 2 Efe Enriquez 2 Cheri Fair Oumou Hernandez RN RN 5 Au-StagerRadha RN RN schafer Corrections: (The following items were deleted from the chart) 02/04 21:31 21:30 Inserted saline lock: 22 gauge in right antecubital area, using aseptic wm technique. Blood collected. wm
--- NOTE | 2022-02-06 09:50 | EDPHYS ---
Physician Documentation [facility] Name: Rufino Sanders Age: 81 yrs Sex: Male : 1940 Arrival Date: 02/04/2022 Time: 17:35 Bed 26 Private MD: Josh Mckeon T ED Physician Gabriel Wiseman HPI: 02/04 20:30 This 81 yrs old Male presents to ER via Wheelchair with complaints of Skin Tear(s), cp Dizziness. 20:30 The patient presents with dizziness. cp 20:30 Onset: The symptoms/episode began/occurred today. Context: occurred while the patient cp was standing, just prior to the episode the patient experienced no apparent symptoms. Associated signs and symptoms: Pertinent negatives: abdominal pain, chest pain, combativeness, diaphoresis, focal weakness, syncope. Patient's baseline: Neuro: alert and fully oriented, Motor: no deficits, Ambulation: walks with assist only, Speech: normal, The patient has a previous history of CVA. Patient reports 1 week ago in which he did hit the back of his head. Sister reports fall again 2 days ago in which patient may have lost consciousness. Historical: - Allergies: 17:51 Sulfa (Sulfonamide Antibiotics); schafer - Immunization history:: Adult Immunizations up to date. - Social history:: Smoking status: Patient denies any tobacco usage or history of. ROS: 20:33 Constitutional: Negative for body aches, chills, fever, poor PO intake. cp 20:33 Eyes: Negative for injury, pain, redness, and discharge. cp 20:33 ENT: Negative for drainage from ear(s), ear pain, sore throat, difficulty swallowing, difficulty handling secretions. 20:33 Cardiovascular: Negative for chest pain, edema, palpitations. 20:33 Respiratory: Negative for cough, shortness of breath, wheezing. 20:33 Abdomen/GI: Negative for abdominal pain, nausea, vomiting, and diarrhea. 20:33 Back: Negative for pain at rest, pain with movement. 20:33 : Negative for urinary symptoms. 20:33 Neuro: Positive for dizziness, headache, Negative for altered mental status, weakness. 20:33 All other systems are negative. Exam: 20:35 Constitutional: The patient appears in no acute distress, alert, awake, cp non-diaphoretic, non-toxic, well developed, well nourished. 20:35 Head/Face: Normocephalic, atraumatic. cp 20:35 Eyes: Periorbital structures: appear normal, Pupils: equal, round, and reactive to light and accomodation, Extraocular movements: intact throughout, Conjunctiva: normal, no exudate, no injection, Sclera: no appreciated abnormality, Lids and lashes: appear normal, bilaterally. 20:35 ENT: External ear(s): are unremarkable, Ear canal(s): are normal, clear, TM's: dullness, bilaterally, Nose: is normal, Mouth: Lips: moist, Oral mucosa: pink and intact, moist, Posterior pharynx: Airway: no evidence of obstruction, patent. 20:35 Neck: C-spine: vertebral tenderness, is not appreciated, crepitus, is not appreciated, ROM/movement: is normal, is supple, without pain, no range of motions limitations, no nuchal rigidity. 20:35 Chest/axilla: Inspection: normal, Palpation: is normal, no crepitus, no tenderness. 20:35 Cardiovascular: Rate: normal, Rhythm: regular, Edema: is not appreciated, JVD: is not appreciated. 20:35 Respiratory: the patient does not display signs of respiratory distress, Respirations: normal, no use of accessory muscles, no retractions, labored breathing, is not present, Breath sounds: are clear throughout, no decreased breath sounds, no stridor, no wheezing. 20:35 Abdomen/GI: Inspection: abdomen appears normal, Palpation: abdomen is soft and non-tender, in all quadrants. 20:35 Back: pain, is absent, ROM is normal. 20:35 Neuro: Orientation: to person, place \T\ time. Mentation: is normal, Cerebellar function: Romberg testing is negative, normal finger to nose testing, heel to magana testing is normal, Motor: moves all fours, strength is normal, Sensation: is normal. 21:45 ECG was reviewed by the Attending Physician. cp Vital Signs: 17:49 BP 103 / 55; Pulse 83; Resp 17; Temp 97.2(T); Pulse Ox 100% ; Weight 90.72 kg; Height 6 schafer ft. 5 in. (195.58 cm); 20:21 BP 155 / 81; Pulse 60; Resp 16 S; Pulse Ox 100% on R/A; bb 21:45 BP 147 / 69; Pulse 67; Resp 17; Temp 98.3(O); Pulse Ox 100% on R/A; wm 22:32 BP 133 / 68; Pulse 64; Resp 14 S; Pulse Ox 100% on R/A; bb 17:49 Body Mass Index 23.72 (90.72 kg, 195.58 cm) schafer NIH Stroke Scale Scores: 20:35 NIHSS Score: 0 MDM: 20:00 Patient medically screened. 21:20 Counseling: I had a detailed discussion with the patient and/or guardian regarding: the historical points, exam findings, and any diagnostic results supporting the discharge/admit diagnosis, radiology results, the need to transfer to another facility, for higher level of care. 21:50 Physician consultation: was contacted at 21:42, regarding regarding transfer, to [facility]. patient's condition, spoke with DR Valentin Tapia, neurosurgery, will accept patient for attending physician. Requests patient to be transfused 1 jumbo pack of platelets. 23:15 Data reviewed: vital signs, nurses notes, lab test result(s), EKG, radiologic studies, cp CT scan, plain films, I have discussed the patient's presentation/case with the attending Emergency Department Physician;. 23:15 Test interpretation: by ED physician or midlevel provider: ECG, plain radiologic cp studies. 02/04 20:22 Order name: Basic Metabolic Panel; Complete Time: 23:11 02/04 23:11 Interpretation: Normal except: NA 135; BUN 21; GFR 69. 02/04 20:22 Order name: CBC with Diff; Complete Time: 23:11 02/04 23:11 Interpretation: Normal except: PLT 129; MN% 13.1. 02/04 20:22 Order name: LFT's; Complete Time: 23:11 02/04 23:11 Interpretation: Normal except: BILID 0.3; ALB 3.0; GLOB 3.9; A/G 0.8. 02/04 20:22 Order name: Magnesium; Complete Time: 23:11 02/04 20:22 Order name: NT PRO-BNP; Complete Time: 23:11 cp 02/04 20:22 Order name: PT-INR; Complete Time: 23:11 cp 02/04 20:22 Order name: Troponin HS; Complete Time: 23:11 cp 02/04 20:22 Order name: XRAY Chest (1 view); Complete Time: 23:11 cp 02/04 23:11 Interpretation: Report review. 02/04 20:22 Order name: CT Head C Spine; Complete Time: 21:12 cp 02/04 21:13 Order name: SARS RAPID; Complete Time: 23:11 cp 02/04 21:41 Order name: Type And Screen 02/04 21:51 Order name: Platelets, Leukored Pheresis EDID 02/04 22:43 Order name: ABO/RH no charge; Complete Time: 23:11 EDID 02/04 20:22 Order name: EKG; Complete Time: 20:24 cp 02/04 20:22 Order name: Cardiac monitoring; Complete Time: 22:03 cp 02/04 20:22 Order name: EKG - Nurse/Tech; Complete Time: 22:03 cp 02/04 20:22 Order name: IV Saline Lock; Complete Time: 21:32 cp 02/04 20:22 Order name: Labs collected and sent; Complete Time: 21:32 cp 02/04 20:22 Order name: O2 Per Protocol; Complete Time: 21:32 cp 02/04 20:22 Order name: O2 Sat Monitoring; Complete Time: 21:32 cp 02/04 20:22 Order name: Urine Dipstick-Ancillary (obtain specimen) 02/04 21:45 Order name: Transfuse; Complete Time: 00:46 cp EC:45 Rate is 62 beats/min. Rhythm is regular. MI interval is normal. QRS interval is cp prolonged at 110 msec. QT interval is normal. T waves are Inverted in lead aVR. Interpreted by me. Reviewed by me. Administered Medications: 21:32 Drug: Keppra (levETIRAcetam) 1000 mg Route: IV; Rate: calculated rate; Site: right bb antecubital; 21:47 Follow up: IV Status: Completed infusion; IV Intake: 100ml 02/05 00:47 Not Given (Hemodynamic Parameters): Lopressor (metoprolol) 2.5 mg IVP every 15 minutes; sm5 Hold for SBP < 100 or HR < 60. x3 Disposition: 02:04 Co-signature as Attending Physician, Gabriel Wiseman MD I agree with the assessment and kdr plan of care. Disposition Summary: 02/04/22 21:47 Transfer Ordered Transfer Location: [facility] cp Reason: Higher level of care cp Condition: Stable cp Problem: new cp Symptoms: have improved cp Accepting Physician: DR Sanchez(02/05/22 00:48) guero Diagnosis - Traumatic subdural hemorrhage cp Forms: - Medication Reconciliation Form cp - SBAR form cp NIH Stroke Scale - NIH Stroke Score Date: 02/04/2022 Time: 20:35 Total Score = 0 1a. Level of Consciousness (LOC) - 0(Alert) 1b. Level of Consciousness (LOC) (Month \T\ Age) - 0(Both) 1c. LOC Commands (Open \T\ Closes Eyes/Print Journalist) - 0(Both) 2. Best Gaze (Lateral Gaze Paresis) - 0(Normal) 3. Visual Field Loss - 0(No visual loss) 4. Facial Palsy - 0(Normal) 5a. Left Arm: Motor (10-second hold) - 0(No drift) 5b. Right Arm: Motor (10-second hold) - 0(No drift) 6a. Left Leg: Motor (5-second hold - always test supine) - 0(No drift) 6b. Right Leg: Motor (5-second hold - always test supine) - 0(No drift) 7. Limb Ataxia (finger/nose \T\ heel/magana - test with eyes open) - 0(Absent) 8. Sensory Loss (pinprick arms/legs/face) - 0(Normal) 9. Best Language: Aphasia (description/naming/reading) - 0(No aphasia) 10. Dysarthria (speech clarity - read or repeat words) - 0(Normal) 11. Extinction and Inattention (visual/tactile/auditory/spatial/personal) - 0(No abnormality) Initials: cp Signatures: Dispatcher [employer] EDMS Gabriel Wiseman MD MD [facility] Tia Bajwa RN RN Bishnu Lindsay PA PA cp Mazur, Sarah, RN RN sm5 Au-StagerRadha RN RN schafer Corrections: (The following items were deleted from the chart) 02/04 22:25 21:50 Physician consultation: was contacted at 21:42, regarding regarding cp transfer, to [facility]. patient's condition, spoke with DR Valentin Tapia, neurosurgery, will accept patient for attending physician, hilario 02/05 00:48 02/04 21:47 DR Sanchez cp sm5
== END 2022-02-05 00:48 | disposition short-term general hospital (02) ==
LOC: ER 17:34
DX: S06.5X0A Traumatic subdural hemorrhage without loss of consciousness, initial encounter (principal); R29.700 NIHSS score 0; Z88.2 Allergy status to sulfonamides; Z86.73 Personal history of transient ischemic attack (TIA), and cerebral infarction without residual deficits
CPT/HCPCS: 93005; 85025; 80048; 36415; 86900; 83735; 86850; 85610; 86901; 80076; 84484; 83880; 70450; 72125; 71045; 87811; J1953; P9035; J7050; 96374; 99285; P9100